=== PATIENT | male | born 1955 | race Hispanic/Latino ===

== ENCOUNTER 2024-09-28 19:47 | Inpatient (IN) | payer OTHER ==
[~2024-09-28] VITALS: Ht 167.6 cm; Wt 98.2 kg
--- NOTE | 2024-09-28 20:14 | EKG ---
[facility] Test Date: 2024-09-28 Test Time: 20:07:59 Pat Name: BAR STEVE Department: ED Room: 221 Gender: M Tooler: [id number] : 1955 Requested By: ALLEN FARAH Order Number: [id number] Reading MD: Ashley Alexis Measurements Intervals [place] Rate: 86 P: 51 MA: 174 QRS: 12 QRSD: 83 T: 24 QT: 350 QTc: 418 Interpretive Statements Sinus rhythm Inferior infarct, old Anterior infarct, acute (LAD) No previous ECG available for comparison Electronically Signed On 09-29-2024 11:12:15 CDT by Ashley Alexis Please click the below link to view image of tracing.
--- NOTE | 2024-09-28 20:26 | ERN ---
ED Note History of Present Illness Stated Complaint: POSSIBLE HEARTBURN Chief Complaint: Heartburn/GI Distress Time Seen by MD: 19:49 Dictation: PATIENT IS A 69-YEAR-OLD MALE COMING IN TODAY WITH EPIGASTRIC AND SUBSTERNAL CHEST PAIN BURNING ONSET HE HAS HAD FOR SEVERAL YEARS OFF AND ON. HE STATES THE DAY HOWEVER IT GOT WORSE AFTER HE ATE 3 HOURS PRIOR TO ARRIVAL AND HE DECIDED TO COME TO THE HOSPITAL. 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 STATES HE DID NOT TAKE ANYTHING PRIOR TO ARRIVAL FOR PAIN. Allergies: Coded Allergies: No Known Allergies (Unverified Allergy, Unknown, 09/28/24) Past Medical History Past Medical History: Diabetes-Type II, Hypertension, Other Additional Past Medical Hx: HX OF GASTRITIS Surgical History: None PSYCH History: no pertinent psych hx RN Note Reviewed/Agreed w/PFSH: Yes Review of System Dictation CONSTITUTIONAL: NEGATIVE EXCEPT FOR HPI HEAD/FACE: NEGATIVE EXCEPT FOR HPI EENT: NEGATIVE EXCEPT FOR HPI RESPIRATORY: NEGATIVE EXCEPT FOR HPI GASTROINTESTINAL/ABDOMINAL: NEGATIVE EXCEPT FOR HPI EPIGASTRIC/SUBSTERNAL CHEST PAIN GENITOURINARY: NEGATIVE EXCEPT FOR HPI MUSCULOSKELETAL: NEGATIVE EXCEPT FOR HPI INTEGUMENTARY: NEGATIVE EXCEPT FOR HPI NEUROLOGICAL/PSYCH: NEGATIVE EXCEPT FOR HPI HEMATOLOGIC/LYMPHATIC: NEGATIVE EXCEPT FOR HPI ALL SYSTEMS NEGATIVE, EXCEPT NOTED ABOVE. 13 POINT REVIEW OF SYSTEMS ASSESSED AND ALL NEGATIVE EXCEPT FOR ABOVE. Initial Vital Sign VS Vital Signs Date Time Temp Pulse Resp B/P (MAP) Pulse Ox O2 Delivery O2 Flow Rate FiO2 09/28/24 20:00 98.1 96 20 165/104 96 Room Air 09/28/24 21:09 0 21 Physical Exam Dictation VITAL SIGNS REVIEWED GENERAL APPEARANCE: ALERT, ORIENTED X 3, MILD ACUTE DISTRESS, WELL DEVELOPED, NOURISHED. HEAD AND FACE: NON-TRAUMATIC. EYES: PERRL, PINK CONJUNCTIVAS, EYELID NO TRAUMA, ANTERIOR CHAMBER WITH ARCUS SENILIS. EARS: PINNAS INTACT AND NO SIGNS OF TRAUMA OR ERYTHEMA EAR CANALS CLEAR AND NO DISCHARGE TM NO ERYTHEMA NOSE: NO DISCHARGE, NO BLEEDING. OROPHARYNX: MOUTH NORMAL, TONGUE PINK, PHARYNX CLEAR,NO ERYTHEMA, TONSILS NO EXUDATES, NO ABSCESSES NOTED, MUCOUS MEMBRANE MOIST NECK: SUPPLE, NON-TENDER, NO THYROMEGALY, NO MASSES, NO JVD, NO BRUITS BREAST:DEFERRED CHEST:NO TENDERNESS, NO CREPITUS, NO PARADOXICAL MOVEMENT, NO RETRACTIONS LUNGS:CLEAR, WELL-VENTILATED, SYMMETRIC, NO RALES, NO WHEEZING, NO RHONCHI, NO STRIDOR, GOOD BREATH SOUNDS BILATERALLY HEART: REGULAR RATE, REGULAR RHYTHM, NO MURMUR, NO GALLOPS VASCULAR: NO PERIPHERAL EDEMA, ABDOMEN: SOFT, POSITIVE BOWEL SOUNDS, NONDISTENDED, NO GUARDING, MILD EPIGASTRIC TENDERNESS WITH PALPATION NO REBOUND, NO MASSES NO HEPATOMEGALY, NO SPLENOMEGALY, NO BENSON'S SIGN, NO HERNIAS. RECTAL: DEFERRED GENITAL: DEFERRED NEUROLOGICAL: NORMAL SPEECH, MOTOR FUNCTION INTACT, SENSORY FUNCTION INTACT MUSCULOSKELETAL: NECK NONTENDER, FULL RANGE OF MOTION, BACK NONTENDER, FULL RANGE OF MOTION, EXTREMITIES: NONTENDER, FULL RANGE OF MOTION SKIN: COLOR PINK, DRY, NO TURGOR, NO RASH, NO LACERATIONS, NO ABRASIONS, NO CONTUSIONS. LYMPHATIC: DEFERRED Results (Laboratory/Radiology) Laboratory/Radiology Laboratory Tests Test 09/28/24 20:22 White Blood Count 14.0 K/uL (4.8-10.8) H Red Blood Count 5.16 MIL/uL (4.50-6.20) Hemoglobin 16.6 g/dL (14.0-18.0) Hematocrit 48.6 % (42-54) Mean Corpuscular Volume 94.2 fL (79-99) Mean Corpuscular Hemoglobin 32.2 pg (27.0-33.0) Mean Corpuscular Hemoglobin Concent 34.2 g/dL (32.0-36.0) Red Cell Distribution Width 11.8 % (11.0-15.5) Platelet Count 224 K/uL (130-400) Mean Platelet Volume 10.5 fL (7.5-10.5) Immature Granulocyte % (Auto) 0.6 % (0-1) Neutrophils (%) (Auto) 58.8 % (40.0-77.0) Lymphocytes (%) (Auto) 29.3 % (21.0-51.0) Monocytes (%) (Auto) 8.7 % (3.0-13.0) Eosinophils (%) (Auto) 1.8 % (0.0-8.0) Basophils (%) (Auto) 0.8 % (0.0-5.0) Neutrophils # (Auto) 8.3 K/uL (1.8-7.7) H Lymphocytes # (Auto) 4.1 K/uL (1.0-4.8) Monocytes # (Auto) 1.2 K/uL (0.1-1.0) H Eosinophils # (Auto) 0.25 K/uL (0.00-0.70) Basophils # (Auto) 0.11 K/uL (0.00-0.20) Absolute Immature Granulocyte (auto 0.08 K/uL (0-1) Nucleated Red Blood Cells 0.0 % (0.0-0.19) Sodium Level 132 mmol/L (136-145) L Potassium Level 3.9 mmol/L (3.5-5.1) Chloride Level 97 mmol/L (101-111) L Carbon Dioxide Level 27 mmol/L (21-32) Blood Urea Nitrogen 26 mg/dL (7-18) H Creatinine 1.4 mg/dL (0.5-1.3) H Glomerular Filtration Rate Calc 54 mL/min (>90) Random Glucose 177 mg/dL (70-105) H Total Calcium 9.6 mg/dL (8.5-10.1) Troponin I High Sensitivity 221 ng/L (4-75) *H Labs Reviewed?: Yes EKG Comment: [facility] Test Date: 2024-09-28 Test Time: 20:07:59 Pat Name: BAR STEVE Department: EDH Room: Gender: Male Felt Puller: [id number] : 1955 Requested By: ALLEN FARAH Order Number: [id number] Reading MD: Measurements Intervals [place] Rate: 86 P: 51 WV: 174 QRS: 12 QRSD: 83 T: 24 QT: 350 QTc: 418 Interpretive Statements Sinus rhythm Inferior infarct, old Anterior infarct, acute (LAD) Please click the below link to view image of tracing. ED Course ED Course Orders Procedure Category Date Status Time 12 Lead Ekg Tracing- EKG 09/28/24 Complete Technical 20:04 Cbc With Differential LAB 09/28/24 Complete 20:23 Troponin I High LAB 09/28/24 Complete Sensitivity 20:23 12 Lead Ekg Tracing- EKG 09/28/24 Logged Technical 20:23 Lidocaine Hcl 2% PHA 09/28/24 Complete Viscous (Lidocaine Hcl 20:30 Mag/Alum/Simeth 30ml PHA 09/28/24 Complete (Maalox Plus 30ml) 20:30 Dicyclomine Hcl PHA 09/28/24 Complete (Bentyl 10mg/5ml 20:30 Famotidine 20mg Vial PHA 09/28/24 Complete (Pepcid 20mg Vial) 20:30 Basic Metabolic Panel LAB 09/28/24 Complete 20:23 Aspirin 325mg Tab PHA 09/28/24 In Process (Aspirin 325mg Tab) 22:00 Heparin 25,000 PHA 09/28/24 In Process Units/250ml D5w 22:00 Heparin 5,000 Unit PHA 09/28/24 In Process Vial (Heparin 5,000 U 22:00 Pt And Ptt LAB 09/28/24 Transmitted 21:48 Current Medications Medications (Trade) Dose Ordered Sig/Mark Route PRN Reason Start Time Stop Time Status Last Admin Dose Admin Al Hydroxide/Mg Hydroxide (MAALox PLUS 30ML) 30 ml ONCE ONCE PO 09/28/24 20:30 09/28/24 20:31 DC 09/28/24 20:56 Aspirin (Aspirin 325mg Tab) 325 mg ONCE ONCE PO 09/28/24 22:00 09/28/24 22:01 Dicyclomine HCl (Bentyl 10mg/5ml Syrup) 10 mg ONCE ONCE PO 09/28/24 20:30 09/28/24 20:31 DC 09/28/24 20:56 Famotidine (Pepcid 20mg Vial) 20 mg ONCE ONCE IV 09/28/24 20:30 09/28/24 20:31 DC 09/28/24 20:56 Heparin Sodium (Porcine) (HEParin 5,000 UNIT VIAL) 7,000 unit ONCE ONCE IV 09/28/24 22:00 09/28/24 22:01 Heparin Sodium/ Dextrose 250 ml @ 0 mls/hr PROTOCOL IV 09/28/24 22:00 10/28/24 21:59 Lidocaine HCl (Lidocaine HCl 2% Viscous) 10 ml ONCE ONCE PO 09/28/24 20:30 09/28/24 20:31 DC 09/28/24 20:56 Vital Signs Date Time Temp Pulse Resp B/P (MAP) Pulse Ox O2 Delivery O2 Flow Rate FiO2 09/28/24 21:09 98.1 80 12 147/86 99 Room Air* 0 21 09/28/24 20:00 98.1 96 20 165/104 96 Room Air 2150, PATIENT HAS REPOLARIZATION CHANGES IN ANTERIOR LEADS V1 TWO AND THREE, TROPONIN 221. PATIENT WILL BE GIVEN ASPIRIN AND HEPARIN DRIP STARTED AND WE WILL TREAT NON STEMI RI. SPOKE WITH PATIENT IN HIS DAUGHTER AT LENGTH AT BEDSIDE AND THEY AGREED TO PROCEED PATIENT STATES HE USED TO SEE WHO GO [place], AND A SPINNING OPERATOR'S AT [facility] HOWEVER HAS NOT SEEN ANYBODY IN FOUR YEARS. [birth year]/21/2055 SPOKE WITH MIKO CORTES HOSPITALIST REVIEWED EKG LABS INTERVENTIONS FOR AN NSTEMI TO INCLUDE ASPIRIN/NITRO/HEPARIN DRIP SHE AGREED TO ACCEPT PATIENT. HEART Score Response (Comments) Value EKG: Repolarization changes 1 Age: > 65yrs (+2) 2 Risk Factors: 3+ risk factors (+2) 2 Initial Troponin: >3x Normal Limit (+2) 2 Total 7 Medical Decision Making MDM MDM: DIFFERENTIAL DIAGNOSIS: ACUTE GASTRITIS/ESOPHAGITIS/ACS/AMI/ELECTROLYTE IMBALANCE/DEHYDRATION RATIONALE: TESTS CONSIDERED AND ORDERED SECONDARY TO SHARED DECISION MAKING INCLUDE: LABS, ECG PREVIOUS OUTSIDE RECORDS REVIEWED: OLD ER VISITS. REVIEWED RISK OF COMPLICATION AND/OR MORBIDITY OR MORTALITY OF PATIENT MANAGEMENT: [id number] MEDICATIONS-PER MEDICATION RECONCILIATION NEED FOR HOSPITALIZATION: PATIENT DOES MEET CRITERIA FOR HOSPITALIZATION. PATIENT WILL NEED CARDIOLOGY CONSULTATION WITH SERIAL EKGS HEPARIN WAS INITIATED ALONG WITH ASPIRIN AND NITRO PASTE TO CHEST NEED FOR EMERGENCY MAJOR/MINOR SURGERY: NO THERE ARE NO SOCIAL CONCERNS WITH THIS PATIENT. PRESCRIPTION DRUG MANAGEMENT PRESCRIPTIONS WILL INCLUDE SYMPTOMATIC CARE PATIENT'S PRIOR EXTERNAL MEDICAL RECORDS FROM OTHER ER VISITS WERE REVIEWED BY ME INDICATED. PRIOR TESTING AND RESULTS FROM PREVIOUS VISITS WERE REVIEWED. PRIOR TESTS WERE TAKEN INTO ACCOUNT WITH MEDICAL DECISION MAKING AND RESOURCE UTILIZATION, INDEPENDENT HISTORIAN/HISTORIANS WERE USED TO OBTAIN COMPLETE MEDICAL HISTORY. I INDEPENDENTLY INTERPRETED THE TEST THAT WERE PERFORMED, RESULTS WERE REVIEWED BY ME AND CONSIDERED FINDINGS ON RADIOLOGY IF ORDERED. MEDICAL MANAGEMENT AND EXAMINATION INTERPRETATION DISCUSSIONS WERE HAD BY ME WITH OTHER QUALIFIED HEALTHCARE PROFESSIONALS INDICATED FOR THE PATIENT'S CARE. DX & DISP Disposition: Inpatient Decision to Admit Time: 21:51 Departure Impression: Primary Impression: Non-STEMI (non-ST elevated myocardial infarction) Additional Impressions: Uncontrolled diabetes mellitus, Stage III chronic kidney disease Condition: Stable Time of Disposition: 21:57 I have reviewed the case, and I agree with, Diagnosis and Plan MACK MITCHELL NP Sep 28, 2024 20:26
[2024-09-28 20:35] LABS: BASOPHILS # (AUTO) 0.11 K/uL (0.00-0.20); BASOPHILS % (AUTO) 0.8 % (0.0-5.0); EOSINOPHILS # (AUTO) 0.25 K/uL (0.00-0.70); EOSINOPHILS % (AUTO) 1.8 % (0.0-8.0); HEMATOCRIT 48.6 % (42-54); IMMATURE GRANULOCYTE ABSOLUTE 0.08 K/uL (0-1); LYMPHOCYTES # (AUTO) 4.1 K/uL (1.0-4.8); LYMPHOCYTES % (AUTO) 29.3 % (21.0-51.0); MEAN CORPUSCULAR HEMOGLOBIN 32.2 pg (27.0-33.0); MEAN CORPUSCULAR HGB CONC 34.2 g/dL (32.0-36.0); MEAN CORPUSCULAR VOLUME 94.2 fL (79-99); MONOCYTES # (AUTO) 1.2 K/uL (0.1-1.0); MONOCYTES % (AUTO) 8.7 % (3.0-13.0); NEUTROPHILS # (AUTO) 8.3 K/uL (1.8-7.7); NEUTROPHILS % (AUTO) 58.8 % (40.0-77.0); PLATELET COUNT (AUTO) 224 K/uL (130-400); RED BLOOD CELL COUNT(AUTO) 5.16 MIL/uL (4.50-6.20); RED CELL DISTRIBUTION WIDTH 11.8 % (11.0-15.5)
[2024-09-28 20:46] LABS: CREATININE 1.4 mg/dL (0.5-1.3); POTASSIUM 3.9 mmol/L (3.5-5.1)
[2024-09-28] MEDS: MAG/ALUM/SIMETH 30 ML UDCUP PO ONE (20:56)
[2024-09-28] MEDS: DICYCLOMINE HCL 10 MG/5 ML ML PO ONE (20:56)
[2024-09-28] MEDS: LIDOCAINE HCL 2% VISCOUS 15 ML UDCUP PO ONE (20:56)
[2024-09-28] MEDS: FAMOTIDINE 20MG VIAL IV ONE (20:56)
--- NOTE | 2024-09-28 22:00 | HP ---
[facility] HISTORY & PHYSICAL Date Patient Seen: Sep 28, 2024 Time of Visit: 21:59 Supervising Physician: Dr. Kit Bocanegra Primary Care Physician: Sheyla Cedeno @ [facility] Outpatient Specialists: Inpatient Consults: Cardiology PROBLEM LIST: NSTEMI-- troponin is 221 Pulmonary vascular congestion Epigastric pain Leukocytosis Acute renal failure secondary to ATN from dehydration Electrolyte derangement (hyponatremia, hypokalemia) Hyperglycemia in setting of type 2 diabetes mellitus Leukocytosis without left band shift Chronic problem list: diabetes mellitus, hypertension, gastritis, former light smoker HPI: Mr. Navarro is a 69 year old male with history of DM II< hypertension and gastritis who presented to ED for evaluation of epigastric and substernal chest pain. He reports the pain feels like burning onset several years on and off, but worsened after he ate 3 hours prior to arrival and which prompted him to come to the hospital. He reports being seen by Dr. Gotti cardiology for a cardiac clearance. Then he continued to see thecardiologist for his hypertension. Now he sees another senior engineering manager in [place]. He did not take anything prior to arrival to ED for the pain. Patient was seen/assessed in ED 17. Denied chest pain during my assessment. I answered his an family members multiple questions. Plan and assessment are listed below. PAST MEDICAL HX: see above PAST SURGICAL HX: noncontributory SOCIAL HISTORY: No tobacco, ETOH, or illicit drug use Coded Allergies: No Known Allergies (Unverified Allergy, Unknown, 09/28/24) REVIEW OF SYSTEMS: 12 point ROS reviewed with patient. Pertinent positives mentioned above. Otherwise negative. PHYSICAL EXAM: GENERAL: Alert, weak, awake oriented x 3 HEENT: EOMI, Sclera non icteric, moist mucosa NECK: Supple, no JVD, trachea midline LUNGS: Clear breath sounds bilaterally. No wheezes HEART: Regular rate and rhythm. Normal S1 and S2, without murmurs ABD: Abdomen soft, nontender. Bowel sounds present EXT: No clubbing cyanosis or edema NEURO: Alert and oriented X3, follows commands Vital Signs (last 8hr) Date Time Temp Pulse Resp B/P (MAP) Pulse Ox O2 Delivery O2 Flow Rate FiO2 09/28/24 21:09 98.1 80 12 147/86 99 Room Air* 0 21 09/28/24 20:00 98.1 96 20 165/104 96 Room Air LABS: Hematology Labs: Test 09/28/24 20:22 Range/Units White Blood Count 14.0 H 4.8-10.8 K/uL Red Blood Count 5.16 4.50-6.20 MIL/uL Hemoglobin 16.6 14.0-18.0 g/dL Hematocrit 48.6 42-54 % Mean Corpuscular Volume 94.2 79-99 fL Mean Corpuscular Hemoglobin 32.2 27.0-33.0 pg Mean Corpuscular Hemoglobin Concent 34.2 32.0-36.0 g/dL Red Cell Distribution Width 11.8 11.0-15.5 % Platelet Count 224 130-400 K/uL Mean Platelet Volume 10.5 7.5-10.5 fL Immature Granulocyte % (Auto) 0.6 0-1 % Neutrophils (%) (Auto) 58.8 40.0-77.0 % Lymphocytes (%) (Auto) 29.3 21.0-51.0 % Monocytes (%) (Auto) 8.7 3.0-13.0 % Eosinophils (%) (Auto) 1.8 0.0-8.0 % Basophils (%) (Auto) 0.8 0.0-5.0 % Neutrophils # (Auto) 8.3 H 1.8-7.7 K/uL Lymphocytes # (Auto) 4.1 1.0-4.8 K/uL Monocytes # (Auto) 1.2 H 0.1-1.0 K/uL Eosinophils # (Auto) 0.25 0.00-0.70 K/uL Basophils # (Auto) 0.11 0.00-0.20 K/uL Absolute Immature Granulocyte (auto 0.08 0-1 K/uL Nucleated Red Blood Cells 0.0 0.0-0.19 % Chemistry Labs: Test 09/28/24 20:22 Range/Units Sodium Level 132 L 136-145 mmol/L Potassium Level 3.9 3.5-5.1 mmol/L Chloride Level 97 L 101-111 mmol/L Carbon Dioxide Level 27 21-32 mmol/L Blood Urea Nitrogen 26 H 7-18 mg/dL Creatinine 1.4 H 0.5-1.3 mg/dL Glomerular Filtration Rate Calc 54 >90 mL/min Random Glucose 177 H 70-105 mg/dL Total Calcium 9.6 8.5-10.1 mg/dL Troponin I High Sensitivity 221 *H 4-75 ng/L DIAGNOSTICS / RADIOLOGY RESULTS: [ ] PLAN -Admit to medical floor with continuous telemetry monitoring. -Troponin levels and EKG series. -Cardiology consult in the am. -2D echo in a.m. with heart clinic to read. -PRN medications for pain management, N/V, constipation, hypertension. -Oxygen supplement as needed to maintain oxygen levels equal to or greater than 92% -Nitroglycerin sublingual as needed chest pain. -Continue Heparin drip. -Aspirin 81 mg p.o. daily. -Atorvastatin 40 mg PO daily. -Blood pressure checks every 4 hours and as needed. -Reconcile home medications once available. -Glucometer checks before meals and at bedtime with insulin regular sliding scale. -Monitor renal and liver function, monitor electrolytes and replace PRN. -AM labs: CBC, BMP, mag, phos, A1C, TSH. -DVT and GI prophylaxis: Lovenox and Protonix. NEURO: Minimize central acting medications as possible. Maintain fall precautions, adequate lighting during the day PULMONARY: Supplemental 02 as needed. Maintain aspiration precautions at all times CARDIOVASCULAR: Follow hemodynamics. Vital signs per facility protocol GI & NUTRITION: Continue with nutritional support. Continue stool softeners and laxatives as needed. KIDNEYS & ELECTROLYTES: Strict monitoring of intake, output and overall fluid balance. Avoid nephrotoxic medications to the extent possible. Medications to be dosed according to renal function. Monitor electrolytes and replace as needed ENDOCRINE: Maintain blood glucose between 100-180 at all times. Hypoglycemia protocol in place INFECTIOUS DISEASE: Trend temperature, WBC and procalcitonin level Follow cultures, deescalate antibiotics as soon as possible. Panculture if new onset fever ONCOLOGY/HEMATOLOGY/COAGULATION: Monitor for s/s of bleeding Monitor hemoglobin, coagulation studies as needed SKIN: Pressure ulcer prevention per facility protocol Specialty mattress ORTHO/REHAB: Continue PT/OT Prophylaxis: Continue GI and DVT prophylaxis Code Status: Full Resuscitation Disposition: JOJO THOMAS Sep 28, 2024 22:00
[2024-09-28 22:05] LABS: INR 0.97 (0.85-1.15); PROTHROMBIN TIME 10.5 SEC (9.6-11.6)
[2024-09-28 22:06] LABS: PARTIAL THROMBOPLASTIN TIME 32.7 SEC (26.3-35.5)
[2024-09-28] MEDS: HEParin 25,000 UNITS/250ML D5W 250 ML IV SCH (22:06)
[2024-09-28] MEDS: HEParin 5,000 UNIT VIAL IV ONE (22:06)
[2024-09-28] MEDS: ASPIRIN 325MG TAB PO ONE (22:06)
[2024-09-28] MEDS: NITROGLYCERIN 1GM OINT 1 INCH/1GM TD ONE (22:07)
[2024-09-28] MEDS ORDERED: hydrALAZine 20MG/ML VIAL IV PRN (22:30)
[2024-09-28] MEDS ORDERED: acetaMINOPHEN 325 MG TAB PO PRN (22:30)
[2024-09-28] MEDS ORDERED: ondanSETRON 4MG INJ IVP PRN (22:30)
[2024-09-28] MEDS ORDERED: TEMAZepam 15 MG CAPSULE PO PRN (22:30)
[2024-09-28] MEDS ORDERED: LACTULOSE 20 GM/30 ML UDCUP PO PRN (22:30)
[2024-09-28] MEDS ORDERED: doCUSate SODIUM 100 MG CAP PO PRN (22:30)
[2024-09-28] MEDS ORDERED: acetaMINOPHEN 650 MG SUPPOSITORY RC PRN (22:30)
[2024-09-28] MEDS: atorVAStatin 40 MG TABLET PO SCH (22:31)
[2024-09-28] MEDS ORDERED: METO50TA18 PO (22:43)
[2024-09-28] MEDS ORDERED: LISI10TA24 PO (22:43)
[2024-09-28] MEDS ORDERED: ATOR10TA69 PO (22:43)
[2024-09-28] MEDS ORDERED: METF-446 PO (22:43)
[2024-09-28] MEDS ORDERED: EMPA10TA PO (22:43)
[2024-09-28 23:15] VITALS: O2SAT 96
[2024-09-28 23:52] VITALS: BP 143/81; PULSE 78; RESP 18; TEMP 98.4
[2024-09-29] VITALS (14 sets, daily range): BP systolic 92–110; BP diastolic 53–71; PULSE 64–81; RESP 18; TEMP 97.8–98.8; O2SAT 96
[2024-09-29 01:49] LABS: AMPHET/METH SCREEN,URINE NEGATIVE (NEGATIVE); BARBITURATE SCREEN, URINE NEGATIVE (NEGATIVE); BENZODIAZEPINES SCREEN,URINE NEGATIVE (NEGATIVE); CANNABINOID SCREEN,URINE NEGATIVE (NEGATIVE); COCAINE SCREEN,URINE NEGATIVE (NEGATIVE); OPIATE SCREEN,URINE NEGATIVE (NEGATIVE); PHENCYCLIDINE SCREEN,URINE NEGATIVE (NEGATIVE)
[2024-09-29 01:51] LABS: ADD UA MICROSCOPIC YES; APPEARANCE,URINE CLEAR (CLEAR); BILIRUBIN,URINE NEGATIVE (NEGATIVE); COLOR,URINE LIGHT-YELLOW (YELLOW); GLUCOSE, URINE (UA) >=1000 mg/dL (NEGATIVE); KETONES,URINE NEGATIVE (NEGATIVE); LEUKOCYTE ESTERASE ,URINE NEGATIVE Leu/uL (NEGATIVE); NITRATE,URINE NEGATIVE (NEGATIVE); OCCULT BLOOD,URINE NEGATIVE (NEGATIVE); PROTEIN,URINE 10 mg/dL (NEGATIVE); UROBILINOGEN,URINE 0.2 mg/dL (0.2-1.0)
[2024-09-29 01:54] LABS: RBC,URINE 0-1 /HPF (0-1); WBC,URINE 0-1 /HPF (0-1)
[2024-09-29 02:25] LABS: HEMATOCRIT 43.6 % (42-54); MEAN CORPUSCULAR HGB CONC 34.4 g/dL (32.0-36.0); RED BLOOD CELL COUNT(AUTO) 4.69 MIL/uL (4.50-6.20); RED CELL DISTRIBUTION WIDTH 11.9 % (11.0-15.5); WHITE BLOOD COUNT (AUTO) 13.2 K/uL (4.8-10.8)
[2024-09-29 02:50] LABS: INR 1.06 (0.85-1.15); PROTHROMBIN TIME 11.4 SEC (9.6-11.6)
[2024-09-29 02:51] LABS: CREATININE 1.2 mg/dL (0.5-1.3); MAGNESIUM 2.1 mg/dL (1.80-2.40); PHOSPHORUS 4.3 mg/dL (2.5-4.9); POTASSIUM 4.2 mmol/L (3.5-5.1); THYROID STIMULATING HORMONE 3.13 uIU/mL (0.36-3.74)
[2024-09-29] MEDS: INSULIN humuLIN R 100 UNIT/ML 3ML SQ SCH (06:13)
--- NOTE | 2024-09-29 08:23 | HMCIMG ---
CHEST 1VW REASON: elevated trop COMPARISON: None. FINDINGS: There is mild cardiomegaly. There is mild pulmonary vascular congestion. There are no pleural effusions. Peripheral portions of the lungs are clear. Mediastinum and bony thorax appear unremarkable. IMPRESSION: 1. Mild cardiomegaly with mild central vascular congestion.
[2024-09-29] MEDS: PANTOPrazole 40 MG/VIAL IVP SCH (08:47)
[2024-09-29] MEDS: ASPIRIN 81 MG EC TAB PO SCH (08:47)
[2024-09-29] MEDS: SUCRALFATE 1 GM TABLET PO SCH (12:00)
--- NOTE | 2024-09-29 12:17 | PN ---
[facility] PROGRESS NOTE Date Patient Seen: Sep 29, 2024 Time of Visit: 12:15 Supervising Physician: Dr. Raygoza Primary Care Physician: Mala Outpatient Specialists: Inpatient Consults: Cardiology PROBLEM LIST: Epigastric pain likely gastritis versus duodenal ulcer flare from spicy food ( patient likes to eat habanero daily) Non STEMI-- troponin is 221, EKG pending- HEART SCORE FOR MACE 5 pts- moderate- risk of MACE 12-16%. Acute renal failure secondary to ATN from dehydration Hyponatremia Hyperglycemia in setting of type 2 diabetes mellitus Pulmonary vascular congestion- likely from acute CHF preserved EF Leukocytosis without left band shift History of diabetes mellitus, hypertension, gastritis, former light smoker INTERVAL HISTORY: Patient came to the hospital yesterday with substernal chest pain. Patient feels burning sensation in the chest 3 hours after he ate habanero. He admits eating spicy food on a daily basis. Patient has history of gastritis not on any PPI. Patient denies any history of cardiac problem other than hypertension. He has seen Dr. Gotti as outpatient for cardiac clearance. His troponin was 220 when he came in and we are trending this. We will obtain EKG. At this time patient is on heparin drip per ACS protocol. Aspirin and statin has been started. Obtain Cardiology clearance. Check BNP. Echocardiogram is pending. In the meantime, likely this gastric burning was from gastritis versus duodenal ulcer. We will start patient with GI cocktail. We will start him also on Carafate. REVIEW OF SYSTEMS: 12 point ROS reviewed with patient. Pertinent positives mentioned above. Otherwise negative. PHYSICAL EXAM: GENERAL: alert, weak, awake oriented x 3 HEENT: EOMI, Sclera non icteric, moist mucosa NECK: Supple, no JVD, trachea midline LUNGS: Clear breath sounds bilaterally. No wheezes HEART: Regular rate and rhythm. Normal S1 and S2, without murmurs ABD: Abdomen soft, nontender. Bowel sounds present EXT: No clubbing cyanosis or edema NEURO: Alert and oriented to person, follows commands Vital Signs (last 8hr) Date Time Temp Pulse Resp B/P (MAP) Pulse Ox O2 Delivery O2 Flow Rate FiO2 09/29/24 08:47 98.8 69 18 98/71 98 Room Air 09/29/24 07:25 96 Room Air* 0 21 LABS: Hematology Labs: Test 09/29/24 02:09 09/28/24 20:22 Range/Units White Blood Count 13.2 H 4.8-10.8 K/uL Red Blood Count 4.69 4.50-6.20 MIL/uL Hemoglobin 15.0 14.0-18.0 g/dL Hematocrit 43.6 42-54 % Mean Corpuscular Volume 93.0 79-99 fL Mean Corpuscular Hemoglobin 32.0 27.0-33.0 pg Mean Corpuscular Hemoglobin Concent 34.4 32.0-36.0 g/dL Red Cell Distribution Width 11.9 11.0-15.5 % Platelet Count 220 130-400 K/uL Mean Platelet Volume 10.5 7.5-10.5 fL Nucleated Red Blood Cells 0.0 0.0-0.19 % Immature Granulocyte % (Auto) 0.6 0-1 % Neutrophils (%) (Auto) 58.8 40.0-77.0 % Lymphocytes (%) (Auto) 29.3 21.0-51.0 % Monocytes (%) (Auto) 8.7 3.0-13.0 % Eosinophils (%) (Auto) 1.8 0.0-8.0 % Basophils (%) (Auto) 0.8 0.0-5.0 % Neutrophils # (Auto) 8.3 H 1.8-7.7 K/uL Lymphocytes # (Auto) 4.1 1.0-4.8 K/uL Monocytes # (Auto) 1.2 H 0.1-1.0 K/uL Eosinophils # (Auto) 0.25 0.00-0.70 K/uL Basophils # (Auto) 0.11 0.00-0.20 K/uL Absolute Immature Granulocyte (auto 0.08 0-1 K/uL Chemistry Labs: Test 09/29/24 05:40 09/29/24 02:09 09/28/24 20:22 Range/Units Whole Blood Glucose 136 H 70-110 MG/DL Sodium Level 134 L 136-145 mmol/L Potassium Level 4.2 3.5-5.1 mmol/L Chloride Level 99 L 101-111 mmol/L Carbon Dioxide Level 29 21-32 mmol/L Blood Urea Nitrogen 23 H 7-18 mg/dL Creatinine 1.2 0.5-1.3 mg/dL Glomerular Filtration Rate Calc 65 >90 mL/min Random Glucose 139 H 70-105 mg/dL Total Calcium 9.5 8.5-10.1 mg/dL Phosphorus Level 4.3 2.5-4.9 mg/dL Magnesium Level 2.10 1.80-2.40 mg/dL Thyroid Stimulating Hormone (TSH) 3.13 0.36-3.74 uIU/mL Troponin I High Sensitivity 221 *H 4-75 ng/L Coagulation Labs: Test 09/29/24 10:01 09/29/24 02:09 Range/Units Activated Partial Thromboplast Time 117.1 *H 26.3-35.5 SEC Prothrombin Time 11.4 9.6-11.6 SEC Prothromb Time International Ratio 1.06 0.85-1.15 DIAGNOSTICS / RADIOLOGY RESULTS: [ ] PLAN -Admit to medical floor with continuous telemetry monitoring. -Troponin levels and EKG series. -Cardiology consult in the am. -2D echo in a.m. with heart clinic to read. -PRN medications for pain management, N/V, constipation, hypertension. -Oxygen supplement as needed to maintain oxygen levels equal to or greater than 92% -Nitroglycerin sublingual as needed chest pain. -Continue Heparin drip. -Aspirin 81 mg p.o. daily. -Atorvastatin 40 mg PO daily. -Blood pressure checks every 4 hours and as needed. -Reconcile home medications once available. -Glucometer checks before meals and at bedtime with insulin regular sliding scale. -Monitor renal and liver function, monitor electrolytes and replace PRN. -AM labs: CBC, BMP, mag, phos, A1C, TSH. -DVT and GI prophylaxis: Lovenox and Protonix. NEURO: Minimize central acting medications as possible. Maintain fall precautions, adequate lighting during the day PULMONARY: Supplemental 02 as needed. Maintain aspiration precautions at all times CARDIOVASCULAR: Follow hemodynamics. Vital signs per facility protocol Trend troponin Cardiology consultation GI & NUTRITION: Continue with nutritional support. Continue stool softeners and laxatives as needed. Carafate GI cocktail KIDNEYS & ELECTROLYTES: Strict monitoring of intake, output and overall fluid balance. Avoid nephrotoxic medications to the extent possible. Medications to be dosed according to renal function. Monitor electrolytes and replace as needed ENDOCRINE: Maintain blood glucose between 100-180 at all times. Hypoglycemia protocol in place INFECTIOUS DISEASE: Trend temperature, WBC and procalcitonin level Follow cultures, deescalate antibiotics as soon as possible. Panculture if new onset fever ONCOLOGY/HEMATOLOGY/COAGULATION: Monitor for s/s of bleeding Monitor hemoglobin, coagulation studies as needed SKIN: Pressure ulcer prevention per facility protocol Specialty mattress ORTHO/REHAB: Continue PT/OT Prophylaxis: Continue GI and DVT prophylaxis Code Status: Full Resuscitation Disposition: TBD Time spent: > 35 minutes ORION ARNOLD MACHINE STRIPER Sep 29, 2024 12:17
--- NOTE | 2024-09-29 12:50 | EKG ---
[facility] Test Date: 2024-09-29 Test Time: 12:50:36 Pat Name: BAR STEVE Department: [facility] Room: 219 Gender: M Stabber: KIM : 1955 Requested By: ORION ARNOLD Order Number: [id number] Reading MD: Hipolito Bradford Measurements Intervals [place] Rate: 74 P: 41 CA: 170 QRS: -2 QRSD: 78 T: 102 QT: 410 QTc: 455 Interpretive Statements Normal sinus rhythm Inferior infarct , age undetermined T wave abnormality, consider anterolateral ischemia Compared to ECG 09/28/2024 20:07:59 T-wave abnormality now present Possible ischemia now present Myocardial infarct finding still present Electronically Signed On 09-30-2024 12:10:00 CDT by Hipolito Bradford Please click the below link to view image of tracing.
[2024-09-29] MEDS ORDERED: COMPOUND PO MISCELLANEOUS 1 EACH MISC MISC PRN (13:30)
[2024-09-29] MEDS: LIDOCAINE HCL 2% VISCOUS 30 ML, MAG/ALUM/SIMETH 30ML 30 ML, DICYCLOMINE HCL 20 MG PO SCH (15:26)
[2024-09-29] MEDS ORDERED: cloPIDOgrel 300MG TAB PO ONE (16:00)
--- NOTE | 2024-09-29 16:00 | EKG ---
[facility] Test Date: 2024-09-29 Test Time: 16:00:53 Pat Name: BAR STEVE Department: [facility] Room: 219 Gender: M Cvt Tech: KIM : 1955 Requested By: KATRINA HUANG Order Number: [id number] Reading MD: Hipolito Bradford Measurements Intervals [place] Rate: 74 P: 0 SC: 160 QRS: 190 QRSD: 74 T: 63 QT: 398 QTc: 441 Interpretive Statements Suspect arm lead reversal, interpretation assumes no reversal Sinus rhythm with premature atrial complexes with aberrant conduction Inferior infarct , age undetermined Anterolateral infarct , age undetermined Compared to ECG 09/29/2024 12:50:36 Atrial premature complex(es) now present Aberrant conduction of supraventricular beat(s) now present T-wave abnormality no longer present Possible ischemia no longer present Myocardial infarct finding still present Electronically Signed On 09-30-2024 12:08:08 CDT by Hipolito Bradford Please click the below link to view image of tracing.
[2024-09-29] MEDS: cloPIDOgrel 300MG TAB PO ONE (17:11)
--- NOTE | 2024-09-29 17:11 | HMCSR ---
APPROVED REPORT EXAM: Two-dimensional and M-mode echocardiogram with Doppler and color Doppler. INDICATION ICD: Non ST-elevation [place] I21.4 ELEVATED TROPONIN 2D Dimensions IVSd1.1 (0.7-1.1cm)LVEF(%)62.3 (>50%)LVED Vol(simp.)146.0 mL LVDd5.3 (3.8-5.6cm)FS(%)34 %LVES Vol(simp.)78.0 mL PWd1.1 (0.7-1.1cm)LA (2D)3.2 (1.6-4.0cm)LVEF(%, simp.)53 % IVSs1.5 cmAo Root(2D)3.0 (2.0-3.7cm)LA ESV INDEX (4CH)25.50 mL/m2 LVDs3.5 (2.5-4.0cm)LVOT diam1.9 (1.8-2.4cm) PWs1.5 cmIVC diam1.3 cm Deformation Strain Apical 4-9.0 % Apical 2-5.0 % Apical 3-11.0 % Global Strain-8.0 % M-Mode Dimensions EPSS1.0 cm LA (MM)4.0 (1.6-4.0cm) Ao Root(MM)3.7 (2.0-3.7cm) Aortic Valve AoV VTI0.2 mAo Mean GR4.0 mmHgLVOT VTI0.14 m SHAGGY (VMAX)1.6 cm2AVA (VTI) 1.6 cm2 Mitral Valve MV E Vmax59.2 cm/sDECEL Vzwl025 ms MV A Vmax88.4 cm/sP 1/2 T62 ms E/A ratio0.7MVA (PHT)3.6 cm2 TDI E/E' Ltxmmo61.9E/E' Bmdexoj12.0 Medial E' Peak V3.50 cm/sLateral E' Peak V3.70 cm/s Left Ventricle Left ventricular cavity size is normal. GLS -8% There is normal left ventricular wall thickness. LVEF is 50-55%. Stage I diastolic dysfunction. Right Ventricle The right ventricle is normal size. The right ventricular systolic function is normal. Atria The left atrium size is normal. The interatrial septum is intact with no evidence for an atrial septa l defect. The right atrium size is normal. Aortic Valve The aortic valve is normal in structure. No aortic regurgitation is present. There is no aortic valvu lar stenosis. Mitral Valve The mitral valve is normal in structure. There is no evidence of significant mitral regurgitation. Tricuspid Valve The tricuspid valve is normal in structure. There is no tricuspid valve regurgitation noted. Pulmonic Valve The pulmonary valve is normal in structure. There is no pulmonic valvular regurgitation. Great Vessels The aortic root is normal in size. The IVC is normal in size and collapses >50% with inspiration. Pericardium There is no pericardial effusion. Conclusion Left ventricular cavity size is normal. LVEF is 50-55%. Stage I diastolic dysfunction. The right ventricle is normal size. The right ventricular systolic function is normal. The left atrium size is normal. The right atrium size is normal. No valvular pathology. There is no pericardial effusion.
[2024-09-29] MEDS ORDERED: LIDOCAINE HCL 400MG/20ML VIAL ONE (17:21)
[2024-09-29] MEDS ORDERED: IOHEXOL 350 MG/ML 100ML INFUS..BTL IV ONE (17:22)
[2024-09-29] MEDS ORDERED: BIVALIRUDIN 250 MG/VIAL IV ONE (17:22)
[2024-09-29] MEDS ORDERED: IOHEXOL-350 50ML VIAL IV ONE (17:22)
[2024-09-29] MEDS ORDERED: NITROGLYCERIN 50MG VIAL ONE (17:22)
[2024-09-29] MEDS ORDERED: HEParin-NS 1,000 UNIT/500 ML 1,000 ML IV ONE (17:22)
--- NOTE | 2024-09-29 17:35 | CONS ---
[facility] CARDIOLOGY CONSULTATION NOTE Date Patient Seen: Sep 29, 2024 Time of Visit: 17:28 Reason for Consultation: [NSTEMI ] History of Present Illness: [ Mr. Navarro is a 69 year old male with history of DM II, hypertension and gastritis who presented to ED for evaluation of epigastric and substernal chest pain. He reports the pain feels like burning onset several years on and off, but worsened after he ate 3 hours prior to arrival and which prompted him to come to the hospital. Currently, he does not report chest pain or tightness. 2D echo is normal LVEF and no valvular pathology. ECG with biphasic T wave v2- v3, TWI v4-v6 and poor r wave progression. Trop 223-->96328. Cardiology consulted for NSTEMI. ] Past Medical History: [ ] Past Surgical History: [ ] Family History: [ ] Social History: [ ] Habits: [Never] smoker. [Denies] alcohol consumption. [Denies] illicit drug use Home Meds: [ ] Current Meds: [ ] Review of Systems: CONST: [No fever, fatigue, or weight changes.] EYES: [No recent vision problems.] ENT: [No congestion, ear pain, or sore throat.] C/V: [No chest pain, palpitations, or edema.] RESP: [No cough, congestion, wheezing or shortness of breath.] GI: [No abdominal pain, nausea, vomiting, constipation, or diarrhea.] : [No incontinence or dysuria.] SKIN: [No rash.] NEURO: [No headache, focal numbness or weakness, dizziness, or seizures.] PSYCH: [No depression or anxiety.] HEME: [No abnormal bruising or bleeding.] LYMPH: [No swollen glands.] Physical Examination: GENERAL: [No acute distress.] HEAD: [Normal with no signs of head trauma.] EYES: [PERRLA, EOMI, conjunctiva and sclera normal.] ENT: [Hearing grossly intact, normal oropharynx.] NECK: [Supple without JVD. There is no tenderness, lymphadenopathy, or masses. No thyromegaly. Normal carotid upstrokes without bruits.] LUNGS: [Clear breath sounds bilaterally. There are right basilar rales one third of the way up the chest. No wheezes, or rhonchi.] HEART: [Normal rate and rhythm. Normal S1 and S2 without mumurs, gallop or rub.] VASC: [Peripheral pulses +2 bilaterally.] ABD: [Bowel sounds normal, soft, nontender, no masses, no organomegaly. No audible bruits.] : [Not examined] LYMPH: [No lymphadenopathy noted.] EXT: [No clubbing, cyanosis or edema.] SKIN: [No rashes or lesions noted.] NEURO: [Awake, alert, and oriented x3. No focal sensory or strength deficits noted.] Vital Signs (last 8hr) Date Time Temp Pulse Resp B/P (MAP) Pulse Ox O2 Delivery O2 Flow Rate FiO2 09/29/24 12:30 98.4 71 18 100/65 97 Room Air Laboratory: [ ] Hematology Labs: Test 09/29/24 02:09 09/28/24 20:22 Range/Units White Blood Count 13.2 H 4.8-10.8 K/uL Red Blood Count 4.69 4.50-6.20 MIL/uL Hemoglobin 15.0 14.0-18.0 g/dL Hematocrit 43.6 42-54 % Mean Corpuscular Volume 93.0 79-99 fL Mean Corpuscular Hemoglobin 32.0 27.0-33.0 pg Mean Corpuscular Hemoglobin Concent 34.4 32.0-36.0 g/dL Red Cell Distribution Width 11.9 11.0-15.5 % Platelet Count 220 130-400 K/uL Mean Platelet Volume 10.5 7.5-10.5 fL Nucleated Red Blood Cells 0.0 0.0-0.19 % Immature Granulocyte % (Auto) 0.6 0-1 % Neutrophils (%) (Auto) 58.8 40.0-77.0 % Lymphocytes (%) (Auto) 29.3 21.0-51.0 % Monocytes (%) (Auto) 8.7 3.0-13.0 % Eosinophils (%) (Auto) 1.8 0.0-8.0 % Basophils (%) (Auto) 0.8 0.0-5.0 % Neutrophils # (Auto) 8.3 H 1.8-7.7 K/uL Lymphocytes # (Auto) 4.1 1.0-4.8 K/uL Monocytes # (Auto) 1.2 H 0.1-1.0 K/uL Eosinophils # (Auto) 0.25 0.00-0.70 K/uL Basophils # (Auto) 0.11 0.00-0.20 K/uL Absolute Immature Granulocyte (auto 0.08 0-1 K/uL Chemistry Labs: Test 09/29/24 15:28 09/29/24 10:01 09/29/24 03:09 09/29/24 02:09 Range/Units Whole Blood Glucose 138 H 70-110 MG/DL Troponin I High Sensitivity 56659 *H 4-75 ng/L B-Type Natriuretic Peptide 84 0-100 pg/mL Sodium Level 134 L 136-145 mmol/L Potassium Level 4.2 3.5-5.1 mmol/L Chloride Level 99 L 101-111 mmol/L Carbon Dioxide Level 29 21-32 mmol/L Blood Urea Nitrogen 23 H 7-18 mg/dL Creatinine 1.2 0.5-1.3 mg/dL Glomerular Filtration Rate Calc 65 >90 mL/min Random Glucose 139 H 70-105 mg/dL Total Calcium 9.5 8.5-10.1 mg/dL Phosphorus Level 4.3 2.5-4.9 mg/dL Magnesium Level 2.10 1.80-2.40 mg/dL Thyroid Stimulating Hormone (TSH) 3.13 0.36-3.74 uIU/mL Coagulation Labs: Test 09/29/24 16:09 09/29/24 02:09 Range/Units Activated Partial Thromboplast Time 81.2 #H 26.3-35.5 SEC Prothrombin Time 11.4 9.6-11.6 SEC Prothromb Time International Ratio 1.06 0.85-1.15 Diagnostics / Radiology: [Copy/Paste Echos/Imaging Report here] Assessment: [ NSTEMI Pulmonary vascular congestion Epigastric pain Leukocytosis Acute renal failure secondary to ATN from dehydration Electrolyte derangement (hyponatremia, hypokalemia) Hyperglycemia in setting of type 2 diabetes mellitus Leukocytosis without left band shift Chronic problem list: diabetes mellitus, hypertension, gastritis, former light smoker] Plan: [#NSTEMI -Trop 223--61575 -ECG with biphasic T wave v2 and v3, TWI v4-v-6 -2d echo normal LVEF and no valvular pathology -repeat ECG unchanged -heparin gtt, plavix 600 mg x1, asa 325 mg x1 -c/w aspirin 81 mg qd -Dr Lamb to 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
[2024-09-29] MEDS ORDERED: FENTanyl CITRate PF 50 MCG/1 ML 2ML VIAL ONE (18:12)
[2024-09-29] MEDS ORDERED: MIDAZOLAM HCL 1 MG/ML 2ML VIAL ONE (18:12)
--- NOTE | 2024-09-29 19:43 | PRN ---
DATE OF PROCEDURE: 09/29/2024 PROCEDURE PERFORMED: LEFT HEART CATHETERIZATION, LEFT VENTRICULOGRAM, LEFT AND RIGHT SELECTIVE CORONARY ANGIOGRAM, LEFT INTERNAL MAMMARY ARTERY SELECTIVE INJECTION TO ASSESS SUITABILITY FOR USE A BYPASS CONDUIT, RIGHT COMMON FEMORAL ANGIOGRAM, PERCLOSE SUTURE CLOSURE OF THE RIGHT COMMON FEMORAL ARTERY, AND CONSCIOUS SEDATION TUBE LANCER: BAKARI GALLEGOS MD, [facility] INDICATION: NON STEMI WITH EVIDENCE OF OLD INFERIOR WALL DE ON EKG AND NEW ANTERIOR ST CHANGES CONSISTENT WITH ACUTE CORONARY SYNDROME/NON STEMI. INITIAL TROPONIN WAS 221 [place] [address] SUGGESTING REPERFUSION AND EARLY WASHOUT. PROCEDURE NOTE: After informed consent was obtained the patient was prepped and draped in the usual sterile fashion. A 6 [place] arterial sheath was inserted in the right femoral artery using a modified Seldinger technique with a front wall, first pass puncture. The arterial sheath was aspirated and flushed. A 6 [place]yan pigtail catheter was then advanced over a J-tipped guidewire to the ascending aorta and was prolapsed into the left ventricle. The catheter was aspirated and flushed and pressure measurements were obtained. A left ventriculogram was then performed in a 30 CACERES projection. A pullback procedure was then performed, and this catheter was removed over a J-tipped guidewire. A 6F JL-4 was then advanced to the ascending aorta over a J-tipped guidewire, was aspirated and flushed, and was used for selective left coronary angiograms in multiple obliquities. A 6 F JR-4 was advanced in a similar fashion to the ascending aorta over a J-tipped guidewire and was used for selective right coronary angiograms in multiple obliquities with findings as outlined below. A right common femoral angiogram was performed to assess suitability for Perclose suture closure and the Perclose device was deployed in standard fashion. Perclose suture closure was successful without bleeding or hematoma. The patient tolerated the procedure well and was returned to the holding area in stable condition. FINDINGS: LEFT HEART HEMODYNAMICS: LVEDP prior to LV-gram was 11 mm of mercury and after LV-gram was 13 mm of mercury. There was no aortic valve gradient on pullback procedure. LEFT VENTRICULOGRAM: A left ventriculogram in a 30 degree CACERES projection demonstrated anteroapical akinesis, limited apical dyskinesis, and inferoapical akinesis with an estimated LVEF of 35-40%. There was no angiographic MR. CORONARY ANGIOGRAM: LEFT MAIN: The left main coronary had a 20% mid tubular stenosis. There was no dampening or ventricularization of the pressure waveform. LEFT ANTERIOR DESCENDING: The LAD was calcified throughout proximal and mid 3rd and there was an 80% long mid LAD stenosis. The distal LAD was free of calcium and was relatively small in size estimated at 1.75 mm. The 1st diagonal branch had an 80% proximal stenosis and appeared to measure 1.5-1.75 mm. There was no sizable 2nd diagonal branch. LEFT CIRCUMFLEX: The left circumflex terminated after the obtuse marginal branch and was nondominant. There was a 75% proximal mid left circumflex stenosis and a 90% OM1 stenosis. RAMUS INTERMEDIATE BRANCH: There was no ramus intermediate branch. RIGHT CORONARY ARTERY: The right coronary artery was dominant and had a 60% mid stenosis and was occluded chronically after the acute marginal branch with trickle flow through tiny channels. The PDA and posterolateral ventricular branches filled by [id number] collaterals. IMPRESSION: Non ST segment elevation DE anteriorly involving a diffusely calcific long 80% stenosis in the mid LAD, spontaneously reperfused prior to angiography with probable early washout with very high 2nd troponin of 47,283. Severe three-vessel coronary artery disease with 80% diagonal one stenosis, 70% proximal circumflex stenosis, 90% OM1 stenosis and chronically occluded mid RCA with PDA and PLV branches filling by [id number] collaterals. Evidence of old inferior wall DE by EKG with associated occluded RCA consistent with silent old inferior wall DE. Moderate ischemic cardiomyopathy with anteroapical and inferoapical akinesis and limited apical dyskinesis with estimated LVEF of 35-40%. No mitral regurgitation. No aortic stenosis. RECOMMENDATION: Given chronic occlusion of the mid right coronary artery and multivessel coronary disease, as well as suboptimal mid LAD for coronary intervention (diffuse calcification) and moderate ischemic cardiomyopathy the patient would benefit best from coronary artery bypass grafting. Patient was loaded with 600 mg of clopidogrel, consider deferring bypass for a few days. COMPLICATIONS OF PROCEDURE: None, the patient tolerated the procedure well and was returned to his room in stable condition. HEMOSTASIS: Perclose suture closure was successful without bleeding or hematoma. ESTIMATED BLOOD LOSS: Less than 10 mL. CONTRAST TOTAL: 135 mL. BAKARI GALLEGOS MD Sep 29, 2024 19:43
[2024-09-30] VITALS (68 sets, daily range): BP systolic 102–145; BP diastolic 62–87; PULSE 69–119; RESP 6–58; TEMP 98–98.6; O2SAT 98–100
[2024-09-30 03:41] LABS: HEMATOCRIT 45.1 % (42-54); MEAN CORPUSCULAR HEMOGLOBIN 32.3 pg (27.0-33.0); MEAN CORPUSCULAR VOLUME 97.6 fL (79-99); RED BLOOD CELL COUNT(AUTO) 4.62 MIL/uL (4.50-6.20); WHITE BLOOD COUNT (AUTO) 11.3 K/uL (4.8-10.8)
[2024-09-30 03:59] LABS: CREATININE 1.1 mg/dL (0.5-1.3); POTASSIUM 3.9 mmol/L (3.5-5.1)
--- NOTE | 2024-09-30 06:43 | EKG ---
[facility] Test Date: 2024-09-29 Test Time: 16:01:53 Pat Name: BAR STEVE [facility] Room: 219 Gender: M Planer Hand: KIM : 1955 Requested By: JINNY SHUKLA Order Number: [id number] Reading MD: Hipolito Bradford Measurements Intervals [place] Rate: 79 P: 0 FL: 162 QRS: 189 QRSD: 78 T: 59 QT: 400 QTc: 458 Interpretive Statements Suspect arm lead reversal, interpretation assumes no reversal Normal sinus rhythm Inferior infarct , age undetermined Anterolateral infarct , age undetermined Compared to ECG 09/29/2024 16:00:53 Atrial premature complex(es) no longer present Aberrant conduction of supraventricular beat(s) no longer present Myocardial infarct finding still present Electronically Signed On 09-30-2024 12:07:45 CDT by Hipolito Bradford Please click the below link to view image of tracing.
[2024-09-30] MEDS: morPHINE 2 MG SYG IVP ONE (08:34)
[2024-09-30] MEDS ORDERED: cloPIDOgrel 75MG TAB PO SCH (09:00)
[2024-09-30] MEDS: NITROGLYCERIN 50MG/D5W 250ML 250 BOT IV SCH (09:09)
[2024-09-30] MEDS: HEParin 25,000 UNITS/250ML D5W 250 ML IV SCH (10:07)
[2024-09-30 10:37] LABS: ABG BASE EXCESS -0.1 mmol/L (-2.0-3.0); ABG HCO3 24.2 mmol/L (21.0-28.0); ABG PCO2 38 mmHg (35-48); ABG PH 7.417 (7.350-7.450); DEVICE COMMENT LR ISAAC; PO2, ARTERIAL BG 64.5 mmHg (83.0-108.0); VENT MODE, BG RA (ROOM AIR)
--- NOTE | 2024-09-30 11:45 | PN ---
[facility] CARDIOLOGY PROGRESS NOTE Date Patient Seen: Sep 30, 2024 Time of Visit: 11:43 Interval History: [ S/p LHC and pending CABG. Had chest pain this AM, started on nitro gtt.] Physical Examination: GENERAL: [No acute distress.] HEAD: [Normal with no signs of head trauma.] EYES: [PERRLA, EOMI, conjunctiva and sclera normal.] ENT: [Hearing grossly intact, normal oropharynx.] NECK: [Supple without JVD. There is no tenderness, lymphadenopathy, or masses. No thyromegaly. Normal carotid upstrokes without bruits.] LUNGS: [Clear breath sounds bilaterally. There are right basilar rales one third of the way up the chest. No wheezes, or rhonchi.] HEART: [Normal rate and rhythm. Normal S1 and S2 without mumurs, gallop or rub.] VASC: [Peripheral pulses +2 bilaterally.] ABD: [Bowel sounds normal, soft, nontender, no masses, no organomegaly. No audible bruits.] : [Not examined] LYMPH: [No lymphadenopathy noted.] EXT: [No clubbing, cyanosis or edema.] SKIN: [No rashes or lesions noted.] NEURO: [Awake, alert, and oriented x3. No focal sensory or strength deficits noted.] Laboratory: [ ] Hematology Labs: Test 09/30/24 03:18 09/28/24 20:22 Range/Units White Blood Count 11.3 H 4.8-10.8 K/uL Red Blood Count 4.62 4.50-6.20 MIL/uL Hemoglobin 14.9 14.0-18.0 g/dL Hematocrit 45.1 42-54 % Mean Corpuscular Volume 97.6 79-99 fL Mean Corpuscular Hemoglobin 32.3 27.0-33.0 pg Mean Corpuscular Hemoglobin Concent 33.0 32.0-36.0 g/dL Red Cell Distribution Width 12.0 11.0-15.5 % Platelet Count 184 130-400 K/uL Mean Platelet Volume 10.4 7.5-10.5 fL Nucleated Red Blood Cells 0.0 0.0-0.19 % Immature Granulocyte % (Auto) 0.6 0-1 % Neutrophils (%) (Auto) 58.8 40.0-77.0 % Lymphocytes (%) (Auto) 29.3 21.0-51.0 % Monocytes (%) (Auto) 8.7 3.0-13.0 % Eosinophils (%) (Auto) 1.8 0.0-8.0 % Basophils (%) (Auto) 0.8 0.0-5.0 % Neutrophils # (Auto) 8.3 H 1.8-7.7 K/uL Lymphocytes # (Auto) 4.1 1.0-4.8 K/uL Monocytes # (Auto) 1.2 H 0.1-1.0 K/uL Eosinophils # (Auto) 0.25 0.00-0.70 K/uL Basophils # (Auto) 0.11 0.00-0.20 K/uL Absolute Immature Granulocyte (auto 0.08 0-1 K/uL Chemistry Labs: Test 09/30/24 05:28 09/30/24 03:18 09/29/24 19:35 09/29/24 03:09 Range/Units Whole Blood Glucose 138 H 70-110 MG/DL Sodium Level 133 L 136-145 mmol/L Potassium Level 3.9 3.5-5.1 mmol/L Chloride Level 99 L 101-111 mmol/L Carbon Dioxide Level 30 21-32 mmol/L Blood Urea Nitrogen 17 7-18 mg/dL Creatinine 1.1 0.5-1.3 mg/dL Glomerular Filtration Rate Calc 72 >90 mL/min Random Glucose 134 H 70-105 mg/dL Total Calcium 8.7 8.5-10.1 mg/dL Troponin I High Sensitivity 94228 *H 4-75 ng/L B-Type Natriuretic Peptide 84 0-100 pg/mL Test 09/29/24 02:09 Range/Units Phosphorus Level 4.3 2.5-4.9 mg/dL Magnesium Level 2.10 1.80-2.40 mg/dL Thyroid Stimulating Hormone (TSH) 3.13 0.36-3.74 uIU/mL Coagulation Labs: Test 09/30/24 09:46 09/29/24 02:09 Range/Units Activated Partial Thromboplast Time 33.3 # 26.3-35.5 SEC Prothrombin Time 11.4 9.6-11.6 SEC Prothromb Time International Ratio 1.06 0.85-1.15 Diagnostics / Radiology: [Copy/Paste Echos/Imaging Report here] Impression and Plan: [NSTEMI Pulmonary vascular congestion Epigastric pain Leukocytosis Acute renal failure secondary to ATN from dehydration Electrolyte derangement (hyponatremia, hypokalemia) Hyperglycemia in setting of type 2 diabetes mellitus Leukocytosis without left band shift Chronic problem list: diabetes mellitus, hypertension, gastritis, former light smoker] Plan: [#NSTEMI -Trop 223--83338 -ECG with biphasic T wave v2 and v3, TWI v4-v-6 -2d echo normal LVEF and no valvular pathology -repeat ECG unchanged -heparin gtt, plavix 600 mg x1, asa 325 mg x1 -c/w aspirin 81 mg qd -underwent LHC with Dr Lamb 09/29: diffusely calcific long 80% stenosis in the mid LAD, spontaneously reperfused prior to angiography with probable early washout with very high 2nd troponin of 47,283. Severe three-vessel coronary artery disease with 80% diagonal one stenosis, 70% proximal circumflex stenosis, 90% OM1 stenosis and chronically occluded mid RCA with PDA and PLV branches filling by [id number] collaterals. Evidence of old inferior wall VA by EKG with associated occluded RCA consistent with silent old inferior wall VA. - consulted CV surgery for CABG Ashley Alexis MD ] ASHLEY ALEXIS MD Sep 30, 2024 11:45
--- NOTE | 2024-09-30 12:32 | PN ---
[facility] PROGRESS NOTE Date Patient Seen: Sep 30, 2024 Time of Visit: 12:27 Supervising Physician: Dr. Raygoza Primary Care Physician: Sheyla Cedeno @ [facility] Outpatient Specialists: Inpatient Consults: Cardiology PROBLEM LIST: Non STEMI-- troponin is 221 peaked to 47K, EKG No ST elevation- HEART SCORE FOR MACE 5 pts- moderate- risk of MACE 12-16%. S/P LHC with finding of MV CAD: mid LAD, diag, OM, and RCA occlusion on 09/29/24 Chest pain secondary to above Acute renal failure secondary to ATN from dehydration Gastritis versus duodenal ulcer flare from spicy food ( patient likes to eat habanero daily) Hyponatremia Hyperglycemia in setting of type 2 diabetes mellitus Pulmonary vascular congestion- likely from acute CHF preserved EF Leukocytosis without left band shift History of diabetes mellitus, hypertension, gastritis, former light smoker INTERVAL HISTORY: Patient came to the hospital yesterday with substernal chest pain. Patient feels burning sensation in the chest 3 hours after he ate habanero. He admits eating spicy food on a daily basis. Patient has history of gastritis not on any PPI. Patient denies any history of cardiac problem other than hypertension. He has seen Dr. Gotti as outpatient for cardiac clearance. His troponin was 220 when he came in and we are trending this. We will obtain EKG. At this time patient is on heparin drip per ACS protocol. Aspirin and statin has been started. Obtain Cardiology clearance. Check BNP. Echocardiogram is pending. In the meantime, likely this gastric burning was from gastritis versus duodenal ulcer. We will start patient with GI cocktail. We will start him also on Carafate. 09/30 patient had remarkable troponin elevation up to 47 K yesterday from 220. This morning patient is upgraded to ICU secondary to persistent chest pain, he was started on nitroglycerin drip. Patient had undergone a left heart catheterization yesterday with finding of multivessel coronary artery disease, pending CV surgery recommendations for coronary artery bypass graft surgery. Patient remains on heparin drip for ACS. Continue with p.r.n. pain medication. bowel regimen. In the meantime patient is NPO pending CV surgery recommendation. REVIEW OF SYSTEMS: 12 point ROS reviewed with patient. Pertinent positives mentioned above. Otherwise negative. PHYSICAL EXAM: GENERAL: Alert, weak, awake oriented x 3 HEENT: EOMI, Sclera non icteric, moist mucosa NECK: Supple, no JVD, trachea midline LUNGS: Clear breath sounds bilaterally. No wheezes HEART: Regular rate and rhythm. Normal S1 and S2, without murmurs ABD: Abdomen soft, nontender. Bowel sounds present EXT: No clubbing cyanosis or edema NEURO: Alert and oriented X3, follows commands Vital Signs (last 8hr) Date Time Temp Pulse Resp B/P (MAP) Pulse Ox O2 Delivery O2 Flow Rate FiO2 09/30/24 10:19 117 14 125/82 (96) 94 09/30/24 10:09 116 24 93 09/30/24 10:00 104 18 N/Cannula Low lpm 2.0 28 09/30/24 09:54 115 11 95 09/30/24 09:49 115 9 138/77 (97) 96 09/30/24 09:39 117 18 97 09/30/24 09:35 117 16 137/79 (98) 96 09/30/24 09:24 115 97 09/30/24 09:19 119 6 140/83 (102) 97 09/30/24 09:10 100 Nasal Cannula* 2 28 09/30/24 09:09 118 13 98 09/30/24 08:30 100 Nasal Cannula* 2 28 09/30/24 08:10 98.1 78 18 130/72 96 Room Air 09/30/24 04:59 98.6 69 18 110/68 94 Room Air LABS: Hematology Labs: Test 09/30/24 03:18 09/28/24 20:22 Range/Units White Blood Count 11.3 H 4.8-10.8 K/uL Red Blood Count 4.62 4.50-6.20 MIL/uL Hemoglobin 14.9 14.0-18.0 g/dL Hematocrit 45.1 42-54 % Mean Corpuscular Volume 97.6 79-99 fL Mean Corpuscular Hemoglobin 32.3 27.0-33.0 pg Mean Corpuscular Hemoglobin Concent 33.0 32.0-36.0 g/dL Red Cell Distribution Width 12.0 11.0-15.5 % Platelet Count 184 130-400 K/uL Mean Platelet Volume 10.4 7.5-10.5 fL Nucleated Red Blood Cells 0.0 0.0-0.19 % Immature Granulocyte % (Auto) 0.6 0-1 % Neutrophils (%) (Auto) 58.8 40.0-77.0 % Lymphocytes (%) (Auto) 29.3 21.0-51.0 % Monocytes (%) (Auto) 8.7 3.0-13.0 % Eosinophils (%) (Auto) 1.8 0.0-8.0 % Basophils (%) (Auto) 0.8 0.0-5.0 % Neutrophils # (Auto) 8.3 H 1.8-7.7 K/uL Lymphocytes # (Auto) 4.1 1.0-4.8 K/uL Monocytes # (Auto) 1.2 H 0.1-1.0 K/uL Eosinophils # (Auto) 0.25 0.00-0.70 K/uL Basophils # (Auto) 0.11 0.00-0.20 K/uL Absolute Immature Granulocyte (auto 0.08 0-1 K/uL Chemistry Labs: Test 09/30/24 11:56 09/30/24 03:18 09/29/24 19:35 09/29/24 03:09 Range/Units Whole Blood Glucose 158 H 70-110 MG/DL Sodium Level 133 L 136-145 mmol/L Potassium Level 3.9 3.5-5.1 mmol/L Chloride Level 99 L 101-111 mmol/L Carbon Dioxide Level 30 21-32 mmol/L Blood Urea Nitrogen 17 7-18 mg/dL Creatinine 1.1 0.5-1.3 mg/dL Glomerular Filtration Rate Calc 72 >90 mL/min Random Glucose 134 H 70-105 mg/dL Total Calcium 8.7 8.5-10.1 mg/dL Troponin I High Sensitivity 77289 *H 4-75 ng/L B-Type Natriuretic Peptide 84 0-100 pg/mL Test 09/29/24 02:09 Range/Units Phosphorus Level 4.3 2.5-4.9 mg/dL Magnesium Level 2.10 1.80-2.40 mg/dL Thyroid Stimulating Hormone (TSH) 3.13 0.36-3.74 uIU/mL Coagulation Labs: Test 09/30/24 09:46 09/29/24 02:09 Range/Units Activated Partial Thromboplast Time 33.3 # 26.3-35.5 SEC Prothrombin Time 11.4 9.6-11.6 SEC Prothromb Time International Ratio 1.06 0.85-1.15 DIAGNOSTICS / RADIOLOGY RESULTS: [ ] PLAN NEURO: Minimize central acting medications as possible. Fall Precautions. Well lighted room through the day and minimize interruptions through the night to prevent acute delirium. PULMONARY: Supplemental 02 as needed Titrate Fio2 to keep Spo2 > or = 90% DuoNebs and CPT as needed IS hourly while awake for pulmonary hygiene Out of bed to chair as tolerated VAP Bundle CARDIOVASCULAR: Follow hemodynamics. Titrate vasopressor to keep MAP >65 or systolic blood pressure >95mmHg CV surgery has been consulted per cardiology recommendations DRIPS: NTG Heparin LINES: PIV GI & NUTRITION: Continue nutritional support Aspirations precautions Prokinetic agents and laxatives as needed KIDNEYS & ELECTROLYTES: Strict monitoring of intake and output Daily weights Avoid nephrotoxic agents Monitor electrolytes and replace as needed Goal urine output of 30mL/hr or 0.5mL/kg/hr ENDOCRINE: Maintain blood glucose between 100-180 at all times. Insulin sliding scale for blood glucose management INFECTIOUS DISEASE: Trend temperature. Haddad-culture if febrile. Micro: NA Antibiotics: NA HEMATOLOGY & COAGULATION: Monitor H&H. Keep Hgb > 7 Transfuse 1 unit of PRBC for Hgb < 7 Transfuse 1 pack of platelets of platelets < 20, 000 Watch for any signs and symptoms of bleeding SKIN: Pressure ulcer prevention per facility protocol Rehab: PT/OT Prophylaxis: GI: Protonix DVT: Heparin Code Status: Full Resuscitation Disposition: ICU Other: Total patient care time exceeds 35 minutes excluding all procedures. Case was discussed and seen with my supervising physician. The above plan was formulated and agreed upon. ORION ARNOLD PERSONAL CARE ATTENDANT Sep 30, 2024 12:32
--- NOTE | 2024-09-30 16:08 | CONS ---
TIME: 3:00 p.m. HISTORY OF PRESENT ILLNESS: The patient is a 69-year-old gentleman who presented with chest pain, had a left heart catheterization that showed 3-vessel coronary artery disease. Cardiac Surgery was consulted for further management. PHYSICAL EXAMINATION: NEUROLOGIC: Alert and oriented, no deficits. CARDIOVASCULAR: S1, S2, regular rate and rhythm. RESPIRATORY: Clear to auscultation bilaterally. ASSESSMENT AND PLAN: This is a 69-year-old gentleman who presented with 3-vessel coronary artery disease. He was loaded with Plavix on 09/29. So, we will have to wait at least 5 days to perform the surgery. He got 600 mg of Plavix, which is a very high dose. We will perform surgery in the upcoming days. I explained the benefits and the risks including loss of limb, loss of life, bleeding, infection, stroke and others. He understands and he wished to proceed. TID: [id number] RECEIPT: [id number]
--- NOTE | 2024-09-30 17:56 | HMCIMG ---
US CAROTID DUPLEX REASON: pre op CABG TECHNIQUE: Exam was performed using spectral analysis and color flow imaging. FINDINGS: Color flow Doppler ultrasound shows normal-appearing bifurcations. There is no anatomic evidence of significant focal narrowing. Flow velocities and velocity ratios appear normal throughout. There is antegrade flow in both vertebral arteries. RIGHT CAROTID: CCA: 82 cm/sec ICA: 94 cm/sec Ratio: ICA/CCA: 1.1 ECA: 137 cm/sec Vertebral artery: 51 cm/sec LEFT CAROTID: CCA: 74 cm/sec ICA: 65 cm/sec Ratio: ICA/CCA: 0.9 ECA: 97 cm/sec Vertebral artery: 41 cm/sec IMPRESSION: Normal bilateral carotid Doppler ultrasound.
[2024-10-01] VITALS (69 sets, daily range): BP systolic 99–171; BP diastolic 58–107; PULSE 77–110; RESP 10–194; TEMP 98.3; O2SAT 95–96
[2024-10-01 04:53] LABS: BASOPHILS # (AUTO) 0.07 K/uL (0.00-0.20); BASOPHILS % (AUTO) 0.6 % (0.0-5.0); EOSINOPHILS # (AUTO) 0.23 K/uL (0.00-0.70); EOSINOPHILS % (AUTO) 2.1 % (0.0-8.0); HEMATOCRIT 43.9 % (42-54); IMMATURE GRANULOCYTE ABSOLUTE 0.06 K/uL (0-1); LYMPHOCYTES # (AUTO) 2.2 K/uL (1.0-4.8); MEAN CORPUSCULAR HGB CONC 33.5 g/dL (32.0-36.0); MEAN CORPUSCULAR VOLUME 95.4 fL (79-99); MONOCYTES # (AUTO) 1.2 K/uL (0.1-1.0); NEUTROPHILS # (AUTO) 7.3 K/uL (1.8-7.7); NEUTROPHILS % (AUTO) 65.8 % (40.0-77.0); PLATELET COUNT (AUTO) 170 K/uL (130-400); RED CELL DISTRIBUTION WIDTH 11.9 % (11.0-15.5)
[2024-10-01 05:06] LABS: CREATININE 1.1 mg/dL (0.5-1.3); MAGNESIUM 1.8 mg/dL (1.80-2.40); POTASSIUM 4.2 mmol/L (3.5-5.1)
--- NOTE | 2024-10-01 10:09 | PN ---
[facility] CARDIOLOGY PROGRESS NOTE Date Patient Seen: Oct 01, 2024 Time of Visit: 10:08 Interval History: [ No events overnight, pending CABG. ] Physical Examination: GENERAL: [No acute distress.] HEAD: [Normal with no signs of head trauma.] EYES: [PERRLA, EOMI, conjunctiva and sclera normal.] ENT: [Hearing grossly intact, normal oropharynx.] NECK: [Supple without JVD. There is no tenderness, lymphadenopathy, or masses. No thyromegaly. Normal carotid upstrokes without bruits.] LUNGS: [Clear breath sounds bilaterally. There are right basilar rales one third of the way up the chest. No wheezes, or rhonchi.] HEART: [Normal rate and rhythm. Normal S1 and S2 without mumurs, gallop or rub.] VASC: [Peripheral pulses +2 bilaterally.] ABD: [Bowel sounds normal, soft, nontender, no masses, no organomegaly. No audible bruits.] : [Not examined] LYMPH: [No lymphadenopathy noted.] EXT: [No clubbing, cyanosis or edema.] SKIN: [No rashes or lesions noted.] NEURO: [Awake, alert, and oriented x3. No focal sensory or strength deficits noted.] Laboratory: [ ] Hematology Labs: Test 10/01/24 04:36 Range/Units White Blood Count 11.0 H 4.8-10.8 K/uL Red Blood Count 4.60 4.50-6.20 MIL/uL Hemoglobin 14.7 14.0-18.0 g/dL Hematocrit 43.9 42-54 % Mean Corpuscular Volume 95.4 79-99 fL Mean Corpuscular Hemoglobin 32.0 27.0-33.0 pg Mean Corpuscular Hemoglobin Concent 33.5 32.0-36.0 g/dL Red Cell Distribution Width 11.9 11.0-15.5 % Platelet Count 170 130-400 K/uL Mean Platelet Volume 10.5 7.5-10.5 fL Immature Granulocyte % (Auto) 0.5 0-1 % Neutrophils (%) (Auto) 65.8 40.0-77.0 % Lymphocytes (%) (Auto) 20.0 L 21.0-51.0 % Monocytes (%) (Auto) 11.0 3.0-13.0 % Eosinophils (%) (Auto) 2.1 0.0-8.0 % Basophils (%) (Auto) 0.6 0.0-5.0 % Neutrophils # (Auto) 7.3 1.8-7.7 K/uL Lymphocytes # (Auto) 2.2 1.0-4.8 K/uL Monocytes # (Auto) 1.2 H 0.1-1.0 K/uL Eosinophils # (Auto) 0.23 0.00-0.70 K/uL Basophils # (Auto) 0.07 0.00-0.20 K/uL Absolute Immature Granulocyte (auto 0.06 0-1 K/uL Nucleated Red Blood Cells 0.0 0.0-0.19 % Chemistry Labs: Test 10/01/24 06:42 10/01/24 04:36 09/29/24 19:35 Range/Units Whole Blood Glucose 150 #H 70-110 MG/DL Sodium Level 131 L 136-145 mmol/L Potassium Level 4.2 3.5-5.1 mmol/L Chloride Level 97 L 101-111 mmol/L Carbon Dioxide Level 30 21-32 mmol/L Blood Urea Nitrogen 12 7-18 mg/dL Creatinine 1.1 0.5-1.3 mg/dL Glomerular Filtration Rate Calc 72 >90 mL/min Random Glucose 127 H 70-105 mg/dL Total Calcium 8.6 8.5-10.1 mg/dL Magnesium Level 1.80 1.80-2.40 mg/dL Troponin I High Sensitivity 80916 *H 4-75 ng/L Coagulation Labs: Test 10/01/24 04:36 Range/Units Activated Partial Thromboplast Time 82.8 H 26.3-35.5 SEC Diagnostics / Radiology: [Copy/Paste Echos/Imaging Report here] Impression and Plan: [NSTEMI Pulmonary vascular congestion Epigastric pain Leukocytosis Acute renal failure secondary to ATN from dehydration Electrolyte derangement (hyponatremia, hypokalemia) Hyperglycemia in setting of type 2 diabetes mellitus Leukocytosis without left band shift Chronic problem list: diabetes mellitus, hypertension, gastritis, former light smoker] Plan: [#NSTEMI -Trop [id number] -ECG with biphasic T wave v2 and v3, TWI v4-v-6 -2d echo normal LVEF and no valvular pathology -repeat ECG unchanged -heparin gtt, plavix 600 mg x1, asa 325 mg x1 -c/w aspirin 81 mg qd -underwent LHC with Dr Lamb 09/29: diffusely calcific long 80% stenosis in the mid LAD, spontaneously reperfused prior to angiography with probable early washout with very high 2nd troponin of 47,283. Severe three-vessel coronary artery disease with 80% diagonal one stenosis, 70% proximal circumflex stenosis, 90% OM1 stenosis and chronically occluded mid RCA with PDA and PLV branches filling by [id number] collaterals. Evidence of old inferior wall MO by EKG with associated occluded RCA consistent with silent old inferior wall MO. - consulted CV surgery for CABG Ashley Alexis MD ] ASHLEY ALEXIS MD Oct 01, 2024 10:09
--- NOTE | 2024-10-01 12:08 | PN ---
[facility] PROGRESS NOTE Date Patient Seen: Oct 01, 2024 Time of Visit: 12:08 Supervising Physician: Dr. Ballesteros Primary Care Physician: Sheyla Cedeno @ [facility] Outpatient Specialists: Inpatient Consults: Cardiology PROBLEM LIST: Non STEMI-- troponin is 221 peaked to 47K, EKG No ST elevation- HEART SCORE FOR MACE 5 pts- moderate- risk of MACE 12-16%. S/P LHC with finding of MV CAD: mid LAD, diag, OM, and RCA occlusion on 09/29/24 Chest pain secondary to above Acute renal failure secondary to ATN from dehydration Gastritis versus duodenal ulcer flare from spicy food ( patient likes to eat habanero daily) Hyponatremia Hyperglycemia in setting of type 2 diabetes mellitus Pulmonary vascular congestion- likely from acute CHF preserved EF Leukocytosis without left band shift History of diabetes mellitus, hypertension, gastritis, former light smoker INTERVAL HISTORY: Patient came to the hospital yesterday with substernal chest pain. Patient feels burning sensation in the chest 3 hours after he ate habanero. He admits eating spicy food on a daily basis. Patient has history of gastritis not on any PPI. Patient denies any history of cardiac problem other than hypertension. He has seen Dr. Gotti as outpatient for cardiac clearance. His troponin was 220 when he came in and we are trending this. We will obtain EKG. At this time patient is on heparin drip per ACS protocol. Aspirin and statin has been started. Obtain Cardiology clearance. Check BNP. Echocardiogram is pending. In the meantime, likely this gastric burning was from gastritis versus duodenal ulcer. We will start patient with GI cocktail. We will start him also on Carafate. 09/30 patient had remarkable troponin elevation up to 47 K yesterday from 220. This morning patient is upgraded to ICU secondary to persistent chest pain, he was started on nitroglycerin drip. Patient had undergone a left heart catheterization yesterday with finding of multivessel coronary artery disease, pending CV surgery recommendations for coronary artery bypass graft surgery. Patient remains on heparin drip for ACS. Continue with p.r.n. pain medication. bowel regimen. In the meantime patient is NPO pending CV surgery recommendation. 10/01 patient is awake alert and oriented x3 no acute chest pain but remains on nitroglycerin drip. Patient is was on heparin drip. Vital signs blood pressure 119/68 pulse is 87. WBC is 11 this is down from 11.3 and chemistry is sodium 131 this is down from 133 yesterday. Creatinine is 1.1 this is stable. Glucose 127. Magnesium is 1.[address] electrolyte protocol. Pending CABG next week. REVIEW OF SYSTEMS: 12 point ROS reviewed with patient. Pertinent positives mentioned above. Otherwise negative. PHYSICAL EXAM: GENERAL: Alert, weak, awake oriented x 3 HEENT: EOMI, Sclera non icteric, moist mucosa NECK: Supple, no JVD, trachea midline LUNGS: Clear breath sounds bilaterally. No wheezes HEART: Regular rate and rhythm. Normal S1 and S2, without murmurs ABD: Abdomen soft, nontender. Bowel sounds present EXT: No clubbing cyanosis or edema NEURO: Alert and oriented X3, follows commands Vital Signs (last 8hr) Date Time Temp Pulse Resp B/P (MAP) Pulse Ox O2 Delivery O2 Flow Rate FiO2 10/01/24 06:30 87 21 119/68 (85) 95 10/01/24 06:00 82 20 103/59 (74) 89 10/01/24 05:30 86 18 110/69 (83) 96 10/01/24 05:00 87 24 111/62 (78) 95 10/01/24 04:34 90 21 112/65 (81) 98 LABS: Hematology Labs: Test 10/01/24 04:36 Range/Units White Blood Count 11.0 H 4.8-10.8 K/uL Red Blood Count 4.60 4.50-6.20 MIL/uL Hemoglobin 14.7 14.0-18.0 g/dL Hematocrit 43.9 42-54 % Mean Corpuscular Volume 95.4 79-99 fL Mean Corpuscular Hemoglobin 32.0 27.0-33.0 pg Mean Corpuscular Hemoglobin Concent 33.5 32.0-36.0 g/dL Red Cell Distribution Width 11.9 11.0-15.5 % Platelet Count 170 130-400 K/uL Mean Platelet Volume 10.5 7.5-10.5 fL Immature Granulocyte % (Auto) 0.5 0-1 % Neutrophils (%) (Auto) 65.8 40.0-77.0 % Lymphocytes (%) (Auto) 20.0 L 21.0-51.0 % Monocytes (%) (Auto) 11.0 3.0-13.0 % Eosinophils (%) (Auto) 2.1 0.0-8.0 % Basophils (%) (Auto) 0.6 0.0-5.0 % Neutrophils # (Auto) 7.3 1.8-7.7 K/uL Lymphocytes # (Auto) 2.2 1.0-4.8 K/uL Monocytes # (Auto) 1.2 H 0.1-1.0 K/uL Eosinophils # (Auto) 0.23 0.00-0.70 K/uL Basophils # (Auto) 0.07 0.00-0.20 K/uL Absolute Immature Granulocyte (auto 0.06 0-1 K/uL Nucleated Red Blood Cells 0.0 0.0-0.19 % Chemistry Labs: Test 10/01/24 11:13 10/01/24 04:36 09/29/24 19:35 Range/Units Whole Blood Glucose 143 H 70-110 MG/DL Sodium Level 131 L 136-145 mmol/L Potassium Level 4.2 3.5-5.1 mmol/L Chloride Level 97 L 101-111 mmol/L Carbon Dioxide Level 30 21-32 mmol/L Blood Urea Nitrogen 12 7-18 mg/dL Creatinine 1.1 0.5-1.3 mg/dL Glomerular Filtration Rate Calc 72 >90 mL/min Random Glucose 127 H 70-105 mg/dL Total Calcium 8.6 8.5-10.1 mg/dL Magnesium Level 1.80 1.80-2.40 mg/dL Troponin I High Sensitivity 84595 *H 4-75 ng/L Coagulation Labs: Test 10/01/24 10:13 Range/Units Activated Partial Thromboplast Time 56.0 #H 26.3-35.5 SEC DIAGNOSTICS / RADIOLOGY RESULTS: [ ] PLAN NEURO: Minimize central acting medications as possible. Fall Precautions. Well lighted room through the day and minimize interruptions through the night to prevent acute delirium. PULMONARY: Supplemental 02 as needed Titrate Fio2 to keep Spo2 > or = 90% DuoNebs and CPT as needed IS hourly while awake for pulmonary hygiene Out of bed to chair as tolerated VAP Bundle CARDIOVASCULAR: Follow hemodynamics. Titrate vasopressor to keep MAP >65 or systolic blood pressure >95mmHg CV surgery has been consulted per cardiology recommendations DRIPS: NTG Heparin LINES: PIV GI & NUTRITION: Continue nutritional support Aspirations precautions Prokinetic agents and laxatives as needed KIDNEYS & ELECTROLYTES: Strict monitoring of intake and output Daily weights Avoid nephrotoxic agents Monitor electrolytes and replace as needed Goal urine output of 30mL/hr or 0.5mL/kg/hr ENDOCRINE: Maintain blood glucose between 100-180 at all times. Insulin sliding scale for blood glucose management INFECTIOUS DISEASE: Trend temperature. Haddad-culture if febrile. Micro: NA Antibiotics: NA HEMATOLOGY & COAGULATION: Monitor H&H. Keep Hgb > 7 Transfuse 1 unit of PRBC for Hgb < 7 Transfuse 1 pack of platelets of platelets < 20, 000 Watch for any signs and symptoms of bleeding SKIN: Pressure ulcer prevention per facility protocol Rehab: PT/OT Prophylaxis: GI: Protonix DVT: Heparin Code Status: Full Resuscitation Disposition: ICU Other: Total patient care time exceeds 35 minutes excluding all procedures. Case was discussed and seen with my supervising physician. The above plan was formulated and agreed upon. ORION ARNOLD [facility] Oct 01, 2024 12:08
[2024-10-01] MEDS ORDERED: PoTASSium chloRIDE 20MEQ/100ML 100 ML IV PRN ×2 (12:30)
[2024-10-01] MEDS ORDERED: PoTASSium chl 10% ELIXIR 20MEQ 20 MEQ/15 ML UDCUP PO PRN (12:30)
[2024-10-01] MEDS ORDERED: PoTASSium chloRIDE 20MEQ ER 20 MEQ ERTAB PO PRN (12:30)
[2024-10-01] MEDS: MAGNESIUM 2GM PREMIX 50ML 50 ML IV PRN (13:57)
[2024-10-01] MEDS ORDERED: LIDO 2% VISC 30ML+MAG/AL/SIMETH 30ML+DICYCLOMINE 20MG 10ML PO PRN (19:30)
[2024-10-01] MEDS: PHARMACY COMMUNICATION MISC SCH (19:30)
[2024-10-01] MEDS ORDERED: COMPOUND PO MISCELLANEOUS 1 EACH MISC MISC PRN (19:30)
[2024-10-02] VITALS (99 sets, daily range): BP systolic 91–160; BP diastolic 42–93; PULSE 79–111; RESP 10–57; TEMP 98.4–98.9; O2SAT 93–96
[2024-10-02 04:28] LABS: HEMATOCRIT 43.5 % (42-54); RED BLOOD CELL COUNT(AUTO) 4.63 MIL/uL (4.50-6.20); RED CELL DISTRIBUTION WIDTH 11.8 % (11.0-15.5); WHITE BLOOD COUNT (AUTO) 11.1 K/uL (4.8-10.8)
[2024-10-02 04:56] LABS: CREATININE 0.9 mg/dL (0.5-1.3); MAGNESIUM 1.9 mg/dL (1.80-2.40); POTASSIUM 3.9 mmol/L (3.5-5.1)
--- NOTE | 2024-10-02 06:24 | PN ---
[facility] CARDIOLOGY PROGRESS NOTE Date Patient Seen: Oct 02, 2024 Time of Visit: 06:23 Interval History: [ No events overnight, pending CABG. ] Physical Examination: GENERAL: [No acute distress.] HEAD: [Normal with no signs of head trauma.] EYES: [PERRLA, EOMI, conjunctiva and sclera normal.] ENT: [Hearing grossly intact, normal oropharynx.] NECK: [Supple without JVD. There is no tenderness, lymphadenopathy, or masses. No thyromegaly. Normal carotid upstrokes without bruits.] LUNGS: [Clear breath sounds bilaterally. There are right basilar rales one third of the way up the chest. No wheezes, or rhonchi.] HEART: [Normal rate and rhythm. Normal S1 and S2 without mumurs, gallop or rub.] VASC: [Peripheral pulses +2 bilaterally.] ABD: [Bowel sounds normal, soft, nontender, no masses, no organomegaly. No audible bruits.] : [Not examined] LYMPH: [No lymphadenopathy noted.] EXT: [No clubbing, cyanosis or edema.] SKIN: [No rashes or lesions noted.] NEURO: [Awake, alert, and oriented x3. No focal sensory or strength deficits noted.] Laboratory: [ ] Hematology Labs: Test 10/02/24 04:10 10/01/24 04:36 Range/Units White Blood Count 11.1 H 4.8-10.8 K/uL Red Blood Count 4.63 4.50-6.20 MIL/uL Hemoglobin 14.8 14.0-18.0 g/dL Hematocrit 43.5 42-54 % Mean Corpuscular Volume 94.0 79-99 fL Mean Corpuscular Hemoglobin 32.0 27.0-33.0 pg Mean Corpuscular Hemoglobin Concent 34.0 32.0-36.0 g/dL Red Cell Distribution Width 11.8 11.0-15.5 % Platelet Count 184 130-400 K/uL Mean Platelet Volume 10.5 7.5-10.5 fL Nucleated Red Blood Cells 0.0 0.0-0.19 % Immature Granulocyte % (Auto) 0.5 0-1 % Neutrophils (%) (Auto) 65.8 40.0-77.0 % Lymphocytes (%) (Auto) 20.0 L 21.0-51.0 % Monocytes (%) (Auto) 11.0 3.0-13.0 % Eosinophils (%) (Auto) 2.1 0.0-8.0 % Basophils (%) (Auto) 0.6 0.0-5.0 % Neutrophils # (Auto) 7.3 1.8-7.7 K/uL Lymphocytes # (Auto) 2.2 1.0-4.8 K/uL Monocytes # (Auto) 1.2 H 0.1-1.0 K/uL Eosinophils # (Auto) 0.23 0.00-0.70 K/uL Basophils # (Auto) 0.07 0.00-0.20 K/uL Absolute Immature Granulocyte (auto 0.06 0-1 K/uL Chemistry Labs: Test 10/02/24 04:10 10/01/24 20:43 Range/Units Sodium Level 131 L 136-145 mmol/L Potassium Level 3.9 3.5-5.1 mmol/L Chloride Level 96 L 101-111 mmol/L Carbon Dioxide Level 30 21-32 mmol/L Blood Urea Nitrogen 9 7-18 mg/dL Creatinine 0.9 0.5-1.3 mg/dL Glomerular Filtration Rate Calc 92 >90 mL/min Random Glucose 142 H 70-105 mg/dL Total Calcium 8.6 8.5-10.1 mg/dL Magnesium Level 1.90 1.80-2.40 mg/dL Whole Blood Glucose 173 H 70-110 MG/DL Coagulation Labs: Test 10/01/24 16:38 Range/Units Activated Partial Thromboplast Time 48.6 H 26.3-35.5 SEC Diagnostics / Radiology: [Copy/Paste Echos/Imaging Report here] Impression and Plan: [NSTEMI Pulmonary vascular congestion Epigastric pain Leukocytosis Acute renal failure secondary to ATN from dehydration Electrolyte derangement (hyponatremia, hypokalemia) Hyperglycemia in setting of type 2 diabetes mellitus Leukocytosis without left band shift Chronic problem list: diabetes mellitus, hypertension, gastritis, former light smoker] Plan: [#NSTEMI -Trop [id number] -ECG with biphasic T wave v2 and v3, TWI v4-v-6 -2d echo normal LVEF and no valvular pathology -repeat ECG unchanged -heparin gtt, plavix 600 mg x1, asa 325 mg x1 -c/w aspirin 81 mg qd -nitro gtt -underwent LHC with Dr Lamb 09/29: diffusely calcific long 80% stenosis in the mid LAD, spontaneously reperfused prior to angiography with probable early washout with very high 2nd troponin of 47,283. Severe three-vessel coronary artery disease with 80% diagonal one stenosis, 70% proximal circumflex stenosis, 90% OM1 stenosis and chronically occluded mid RCA with PDA and PLV branches filling by [id number] collaterals. Evidence of old inferior wall [place] by EKG with associated occluded RCA consistent with silent old inferior wall [place]. - consulted CV surgery for CABG, pending 5 days post first plavix dose 10/30 Ashley Alexis MD ] ASHLEY ALEXIS MD Oct 02, 2024 06:24
--- NOTE | 2024-10-02 10:57 | PN ---
[facility] PROGRESS NOTE Date Patient Seen: Oct 02, 2024 Time of Visit: 10:55 Supervising Physician: Dr. Parr Primary Care Physician: Sheyla Cedeno @ [facility] Outpatient Specialists: Inpatient Consults: Cardiology PROBLEM LIST: Non STEMI-- troponin is 221 peaked to 47K, EKG No ST elevation- HEART SCORE FOR MACE 5 pts- moderate- risk of MACE 12-16%. S/P LHC with finding of MV CAD: mid LAD, diag, OM, and RCA occlusion on 09/29/24 Chest pain secondary to above Acute renal failure secondary to ATN from dehydration Gastritis versus duodenal ulcer flare from spicy food ( patient likes to eat habanero daily) Hyponatremia Suspect obstructive sleep apnea Hyperglycemia in setting of type 2 diabetes mellitus Pulmonary vascular congestion- likely from acute CHF preserved EF Leukocytosis without left band shift History of diabetes mellitus, hypertension, gastritis, former light smoker INTERVAL HISTORY: Patient came to the hospital yesterday with substernal chest pain. Patient feels burning sensation in the chest 3 hours after he ate habanero. He admits eating spicy food on a daily basis. Patient has history of gastritis not on any PPI. Patient denies any history of cardiac problem other than hypertension. He has seen Dr. Gotti as outpatient for cardiac clearance. His troponin was 220 when he came in and we are trending this. We will obtain EKG. At this time patient is on heparin drip per ACS protocol. Aspirin and statin has been sta rted. Obtain Cardiology clearance. Check BNP. Echocardiogram is pending. In the meantime, likely this gastric burning was from gastritis versus duodenal ulcer. We will start patient with GI cocktail. We will start him also on Carafate. 09/30 patient had remarkable troponin elevation up to 47 K yesterday from 220. This morning patient is upgraded to ICU secondary to persistent chest pain, he was started on nitroglycerin drip. Patient had undergone a left heart catheterization yesterday with finding of multivessel coronary artery disease, pending CV surgery recommendations for coronary artery bypass graft surgery. Patient remains on heparin drip for ACS. Continue with p.r.n. pain medication. bowel regimen. In the meantime patient is NPO pending CV surgery recommendation. 10/01 patient is awake alert and oriented x3 no acute chest pain but remains on nitroglycerin drip. Patient is was on heparin drip. Vital signs blood pressure 119/68 pulse is 87. WBC is 11 this is down from 11.3 and chemistry is sodium 131 this is down from 133 yesterday. Creatinine is 1.1 this is stable. Glucose 127. Magnesium is 1.[address] electrolyte protocol. Pending CABG next week. 10/02 patient is awake alert oriented x3 no chest pain at this time. Patient remains on nitroglycerin drip titration. According to in tartrate for chest pain. This morning lab is unremarkable. Blood pressure 118/68 heart rate is 89. T-max is 98.4. Echocardiogram with LVEF of 35%. Patient is on aspirin and statin already. Consider beta-deb. Diuretic as needed. Patient is reported to have been hypoxic at night at sleep time. Patient reported that he has sleep apnea but never get tested. We will start patient on low CPAP at night with 8 cm Hg. We will need outpatient sleep apnea study. Patient is pending CV surgery for CABG. REVIEW OF SYSTEMS: 12 point ROS reviewed with patient. Pertinent positives mentioned above. Otherwise negative. PHYSICAL EXAM: GENERAL: Alert, weak, awake oriented x 3 HEENT: EOMI, Sclera non icteric, moist mucosa NECK: Supple, no JVD, trachea midline LUNGS: Clear breath sounds bilaterally. No wheezes HEART: Regular rate and rhythm. Normal S1 and S2, without murmurs ABD: Abdomen soft, nontender. Bowel sounds present EXT: No clubbing cyanosis or edema NEURO: Alert and oriented X3, follows commands Vital Signs (last 8hr) Date Time Temp Pulse Resp B/P (MAP) Pulse Ox O2 Delivery O2 Flow Rate FiO2 10/02/24 08:00 95 Room Air* 0 21 10/02/24 06:30 89 16 118/68 98 10/02/24 06:15 90 24 116/68 98 10/02/24 06:00 93 24 125/86 96 10/02/24 05:45 93 18 129/80 98 10/02/24 05:30 85 18 123/75 98 10/02/24 05:15 87 22 112/72 97 10/02/24 05:00 91 18 132/72 97 10/02/24 04:45 93 15 122/67 95 10/02/24 04:30 90 15 113/69 96 10/02/24 04:15 90 15 125/76 96 10/02/24 04:00 95 Nasal Cannula* 3 32 10/02/24 04:00 98.4 96 25 129/83 97 Nasal Cannula 3.0 10/02/24 03:45 88 33 103/72 97 10/02/24 03:30 95 17 120/72 98 10/02/24 03:15 93 24 125/89 96 10/02/24 03:00 92 17 122/73 96 LABS: Hematology Labs: Test 10/02/24 04:10 10/01/24 04:36 Range/Units White Blood Count 11.1 H 4.8-10.8 K/uL Red Blood Count 4.63 4.50-6.20 MIL/uL Hemoglobin 14.8 14.0-18.0 g/dL Hematocrit 43.5 42-54 % Mean Corpuscular Volume 94.0 79-99 fL Mean Corpuscular Hemoglobin 32.0 27.0-33.0 pg Mean Corpuscular Hemoglobin Concent 34.0 32.0-36.0 g/dL Red Cell Distribution Width 11.8 11.0-15.5 % Platelet Count 184 130-400 K/uL Mean Platelet Volume 10.5 7.5-10.5 fL Nucleated Red Blood Cells 0.0 0.0-0.19 % Immature Granulocyte % (Auto) 0.5 0-1 % Neutrophils (%) (Auto) 65.8 40.0-77.0 % Lymphocytes (%) (Auto) 20.0 L 21.0-51.0 % Monocytes (%) (Auto) 11.0 3.0-13.0 % Eosinophils (%) (Auto) 2.1 0.0-8.0 % Basophils (%) (Auto) 0.6 0.0-5.0 % Neutrophils # (Auto) 7.3 1.8-7.7 K/uL Lymphocytes # (Auto) 2.2 1.0-4.8 K/uL Monocytes # (Auto) 1.2 H 0.1-1.0 K/uL Eosinophils # (Auto) 0.23 0.00-0.70 K/uL Basophils # (Auto) 0.07 0.00-0.20 K/uL Absolute Immature Granulocyte (auto 0.06 0-1 K/uL Chemistry Labs: Test 10/02/24 04:10 10/01/24 20:43 Range/Units Sodium Level 131 L 136-145 mmol/L Potassium Level 3.9 3.5-5.1 mmol/L Chloride Level 96 L 101-111 mmol/L Carbon Dioxide Level 30 21-32 mmol/L Blood Urea Nitrogen 9 7-18 mg/dL Creatinine 0.9 0.5-1.3 mg/dL Glomerular Filtration Rate Calc 92 >90 mL/min Random Glucose 142 H 70-105 mg/dL Total Calcium 8.6 8.5-10.1 mg/dL Magnesium Level 1.90 1.80-2.40 mg/dL Whole Blood Glucose 173 H 70-110 MG/DL Coagulation Labs: Test 10/01/24 16:38 Range/Units Activated Partial Thromboplast Time 48.6 H 26.3-35.5 SEC DIAGNOSTICS / RADIOLOGY RESULTS: [ ] PLAN NEURO: Minimize central acting medications as possible. Fall Precautions. Well lighted room through the day and minimize interruptions through the night to prevent acute delirium. PULMONARY: Supplemental 02 as needed Titrate Fio2 to keep Spo2 > or = 90% DuoNebs and CPT as needed IS hourly while awake for pulmonary hygiene Out of bed to chair as tolerated VAP Bundle CARDIOVASCULAR: Follow hemodynamics. Titrate vasopressor to keep MAP >65 or systolic blood pressure >95mmHg CV surgery has been consulted per cardiology recommendations DRIPS: NTG Heparin LINES: PIV GI & NUTRITION: Continue nutritional support Aspirations precautions Prokinetic agents and laxatives as needed KIDNEYS & ELECTROLYTES: Strict monitoring of intake and output Daily weights Avoid nephrotoxic agents Monitor electrolytes and replace as needed Goal urine output of 30mL/hr or 0.5mL/kg/hr ENDOCRINE: Maintain blood glucose between 100-180 at all times. Insulin sliding scale for blood glucose management INFECTIOUS DISEASE: Trend temperature. Haddad-culture if febrile. Micro: NA Antibiotics: NA HEMATOLOGY & COAGULATION: Monitor H&H. Keep Hgb > 7 Transfuse 1 unit of PRBC for Hgb < 7 Transfuse 1 pack of platelets of platelets < 20, 000 Watch for any signs and symptoms of bleeding SKIN: Pressure ulcer prevention per facility protocol Rehab: PT/OT Prophylaxis: GI: Protonix DVT: Heparin Code Status: Full Resuscitation Disposition: ICU Other: Total patient care time exceeds 35 minutes excluding all procedures. Case was discussed and seen with my supervising physician. The above plan was formulated and agreed upon. ORION ARNOLD [employer] Oct 02, 2024 10:57
[2024-10-02] MEDS: metoPROLOL tartRATE 25 MG TAB PO ONE (11:53)
[2024-10-02] MEDS: metoPROLOL tartRATE 25 MG TAB PO SCH (21:09)
[2024-10-03] VITALS (88 sets, daily range): BP systolic 98–149; BP diastolic 48–106; PULSE 68–96; RESP 14–123; TEMP 97.2–98.9; O2SAT 93–99
--- NOTE | 2024-10-03 09:09 | PN ---
[facility] CARDIOLOGY PROGRESS NOTE Date Patient Seen: Oct 03, 2024 Time of Visit: 09:09 Interval History: [ No events overnight, pending CABG. ] Physical Examination: GENERAL: [No acute distress.] HEAD: [Normal with no signs of head trauma.] EYES: [PERRLA, EOMI, conjunctiva and sclera normal.] ENT: [Hearing grossly intact, normal oropharynx.] NECK: [Supple without JVD. There is no tenderness, lymphadenopathy, or masses. No thyromegaly. Normal carotid upstrokes without bruits.] LUNGS: [Clear breath sounds bilaterally. There are right basilar rales one third of the way up the chest. No wheezes, or rhonchi.] HEART: [Normal rate and rhythm. Normal S1 and S2 without mumurs, gallop or rub.] VASC: [Peripheral pulses +2 bilaterally.] ABD: [Bowel sounds normal, soft, nontender, no masses, no organomegaly. No audible bruits.] : [Not examined] LYMPH: [No lymphadenopathy noted.] EXT: [No clubbing, cyanosis or edema.] SKIN: [No rashes or lesions noted.] NEURO: [Awake, alert, and oriented x3. No focal sensory or strength deficits noted.] Laboratory: [ ] Hematology Labs: Test 10/02/24 04:10 Range/Units White Blood Count 11.1 H 4.8-10.8 K/uL Red Blood Count 4.63 4.50-6.20 MIL/uL Hemoglobin 14.8 14.0-18.0 g/dL Hematocrit 43.5 42-54 % Mean Corpuscular Volume 94.0 79-99 fL Mean Corpuscular Hemoglobin 32.0 27.0-33.0 pg Mean Corpuscular Hemoglobin Concent 34.0 32.0-36.0 g/dL Red Cell Distribution Width 11.8 11.0-15.5 % Platelet Count 184 130-400 K/uL Mean Platelet Volume 10.5 7.5-10.5 fL Nucleated Red Blood Cells 0.0 0.0-0.19 % Chemistry Labs: Test 10/02/24 04:10 10/01/24 20:43 Range/Units Sodium Level 131 L 136-145 mmol/L Potassium Level 3.9 3.5-5.1 mmol/L Chloride Level 96 L 101-111 mmol/L Carbon Dioxide Level 30 21-32 mmol/L Blood Urea Nitrogen 9 7-18 mg/dL Creatinine 0.9 0.5-1.3 mg/dL Glomerular Filtration Rate Calc 92 >90 mL/min Random Glucose 142 H 70-105 mg/dL Total Calcium 8.6 8.5-10.1 mg/dL Magnesium Level 1.90 1.80-2.40 mg/dL Whole Blood Glucose 173 H 70-110 MG/DL Coagulation Labs: Test 10/03/24 04:22 Range/Units Activated Partial Thromboplast Time 64.0 H 26.3-35.5 SEC Diagnostics / Radiology: [Copy/Paste Echos/Imaging Report here] Impression and Plan: [NSTEMI Pulmonary vascular congestion Epigastric pain Leukocytosis Acute renal failure secondary to ATN from dehydration Electrolyte derangement (hyponatremia, hypokalemia) Hyperglycemia in setting of type 2 diabetes mellitus Leukocytosis without left band shift Chronic problem list: diabetes mellitus, hypertension, gastritis, former light smoker] Plan: [#NSTEMI -Trop [id number] -ECG with biphasic T wave v2 and v3, TWI v4-v-6 -2d echo normal LVEF and no valvular pathology -repeat ECG unchanged -heparin gtt, plavix 600 mg x1, asa 325 mg x1 -c/w aspirin 81 mg qd -nitro gtt -underwent LHC with Dr Lamb 09/29: diffusely calcific long 80% stenosis in the mid LAD, spontaneously reperfused prior to angiography with probable early washout with very high 2nd troponin of 47,283. Severe three-vessel coronary artery disease with 80% diagonal one stenosis, 70% proximal circumflex stenosis, 90% OM1 stenosis and chronically occluded mid RCA with PDA and PLV branches filling by [id number] collaterals. Evidence of old inferior wall [place] by EKG with associated occluded RCA consistent with silent old inferior wall [place]. - consulted CV surgery for CABG, pending 5 days post first plavix dose 10/30 Ashley Alexis MD ] ASHLEY ALEXIS MD Oct 03, 2024 09:09
--- NOTE | 2024-10-03 12:05 | PN ---
[facility] PROGRESS NOTE Date Patient Seen: Oct 03, 2024 Time of Visit: 12:04 Supervising Physician: Dr. Parr Primary Care Physician: Sheyla Cedeno @ [facility] Outpatient Specialists: Inpatient Consults: Cardiology PROBLEM LIST: Non STEMI-- troponin is 221 peaked to 47K, EKG No ST elevation- HEART SCORE FOR MACE 5 pts- moderate- risk of MACE 12-16%. S/P LHC with finding of MV CAD: mid LAD, diag, OM, and RCA occlusion on 09/29/24 Chest pain secondary to above Obstructed sleep apnea- witnessed here during hospital stay Acute renal failure secondary to ATN from dehydration Gastritis versus duodenal ulcer flare from spicy food ( patient likes to eat habanero daily) Hyponatremia Suspect obstructive sleep apnea Hyperglycemia in setting of type 2 diabetes mellitus Pulmonary vascular congestion- likely from acute CHF preserved EF Leukocytosis without left band shift Obesity BMI 32 History of diabetes mellitus, hypertension, gastritis, former light smoker INTERVAL HISTORY: Patient came to the hospital yesterday with substernal chest pain. Patient feels burning sensation in the chest 3 hours after he ate habanero. He admits eating spicy food on a daily basis. Patient has history of gastritis not on any PPI. Patient denies any history of cardiac problem other than hypertension. He has seen Dr. Gotti as outpatient for cardiac clearance. His troponin was 220 when he came in and we are trending this. We will obtain EKG. At this time silvia hamilton is on heparin drip per ACS protocol. Aspirin and statin has been started. Obtain Cardiology clearance. Check BNP. Echocardiogram is pending. In the meantime, likely this gastric burning was from gastritis versus duodenal ulcer. We will start patient with GI cocktail. We will start him also on Carafate. 09/30 patient had remarkable troponin elevation up to 47 K yesterday from 220. This morning patient is upgraded to ICU secondary to persistent chest pain, he was started on nitroglycerin drip. Patient had undergone a left heart catheterization yesterday with finding of multivessel coronary artery disease, pending CV surgery recommendations for coronary artery bypass graft surgery. Patient remains on heparin drip for ACS. Continue with p.r.n. pain medication. bowel regimen. In the meantime patient is NPO pending CV surgery recommendation. 10/01 patient is awake alert and oriented x3 no acute chest pain but remains on nitroglycerin drip. Patient is was on heparin drip. Vital signs blood pressure 119/68 pulse is 87. WBC is 11 this is down from 11.3 and chemistry is sodium 131 this is down from 133 yesterday. Creatinine is 1.1 this is stable. Glucose 127. Magnesium is 1.[address] electrolyte protocol. Pending CABG next week. 10/02 patient is awake alert oriented x3 no chest pain at this time. Patient remains on nitroglycerin drip titration. According to in tartrate for chest pain. This morning lab is unremarkable. Blood pressure 118/68 heart rate is 89. T-max is 98.4. Echocardiogram with LVEF of 35%. Patient is on aspirin and statin already. Consider beta-deb. Diuretic as needed. Patient is reporte d to have been hypoxic at night at sleep time. Patient reported that he has sleep apnea but never get tested. We will start patient on low CPAP at night with 8 cm Hg. We will need outpatient sleep apnea study. Patient is pending CV surgery for CABG. 10/03 patient is awake alert oriented x3 , no acute distress. Patient was tolerating CPAP overnight for 2 hours. Continued at nighttime. At this time, we can teach him how to use incentive spirometry. He remains on 2 L nasal cannula with sats 99%. Continue to wean down as tolerated. He has holiday lab this morning , we can check lab tomorrow morning. Otherwise continue with ni troglycerin drip and heparin drip. Patient has been started on beta-deb. REVIEW OF SYSTEMS: 12 point ROS reviewed with patient. Pertinent positives mentioned above. Otherwise negative. PHYSICAL EXAM: GENERAL: Alert, weak, awake oriented x 3 HEENT: EOMI, Sclera non icteric, moist mucosa NECK: Supple, no JVD, trachea midline LUNGS: Clear breath sounds bilaterally. No wheezes HEART: Regular rate and rhythm. Normal S1 and S2, without murmurs ABD: Abdomen soft, nontender. Bowel sounds present EXT: No clubbing cyanosis or edema NEURO: Alert and oriented X3, follows commands Vital Signs (last 8hr) Date Time Temp Pulse Resp B/P (MAP) Pulse Ox O2 Delivery O2 Flow Rate FiO2 10/03/24 11:35 77 28 127/76 99 Nasal Cannula 10/03/24 11:20 78 20 138/106 99 Nasal Cannula 10/03/24 11:04 99.0 72 18 131/77 98 Nasal Cannula 10/03/24 10:49 79 34 127/71 98 Nasal Cannula 10/03/24 10:34 79 26 131/62 97 Nasal Cannula 10/03/24 10:20 73 39 121/67 96 Nasal Cannula 10/03/24 10:04 85 22 125/89 98 Nasal Cannula 10/03/24 09:49 92 30 114/76 97 Nasal Cannula 10/03/24 09:34 93 24 123/70 96 Nasal Cannula 10/03/24 09:19 95 26 129/79 98 Nasal Cannula 10/03/24 09:04 96 24 137/84 96 Nasal Cannula 10/03/24 08:49 91 22 137/82 96 Nasal Cannula 10/03/24 08:34 88 20 126/70 98 Nasal Cannula 10/03/24 08:00 97 Nasal Cannula* 2 28 10/03/24 07:50 87 18 3.0 32 10/03/24 07:34 84 16 126/74 97 Nasal Cannula 2.0 10/03/24 07:19 98.2 89 24 133/86 98 Nasal Cannula 2.0 10/03/24 07:04 83 24 121/95 98 Nasal Cannula 2.0 10/03/24 06:49 87 26 131/74 97 Nasal Cannula 2.0 10/03/24 05:48 78 25 111/65 98 Nasal Cannula 2.0 10/03/24 05:34 88 20 105/69 95 Nasal Cannula 2.0 10/03/24 05:18 80 21 120/63 95 Nasal Cannula 2.0 10/03/24 05:03 85 24 115/76 73 Nasal Cannula 2.0 10/03/24 04:48 84 27 123/88 98 Nasal Cannula 2.0 10/03/24 04:35 87 30 109/66 97 Nasal Cannula 2.0 10/03/24 04:19 84 27 122/55 98 Nasal Cannula 2.0 LABS: Hematology Labs: Test 10/02/24 04:10 Range/Units White Blood Count 11.1 H 4.8-10.8 K/uL Red Blood Count 4.63 4.50-6.20 MIL/uL Hemoglobin 14.8 14.0-18.0 g/dL Hematocrit 43.5 42-54 % Mean Corpuscular Volume 94.0 79-99 fL Mean Corpuscular Hemoglobin 32.0 27.0-33.0 pg Mean Corpuscular Hemoglobin Concent 34.0 32.0-36.0 g/dL Red Cell Distribution Width 11.8 11.0-15.5 % Platelet Count 184 130-400 K/uL Mean Platelet Volume 10.5 7.5-10.5 fL Nucleated Red Blood Cells 0.0 0.0-0.19 % Chemistry Labs: Test 10/02/24 04:10 10/01/24 20:43 Range/Units Sodium Level 131 L 136-145 mmol/L Potassium Level 3.9 3.5-5.1 mmol/L Chloride Level 96 L 101-111 mmol/L Carbon Dioxide Level 30 21-32 mmol/L Blood Urea Nitrogen 9 7-18 mg/dL Creatinine 0.9 0.5-1.3 mg/dL Glomerular Filtration Rate Calc 92 >90 mL/min Random Glucose 142 H 70-105 mg/dL Total Calcium 8.6 8.5-10.1 mg/dL Magnesium Level 1.90 1.80-2.40 mg/dL Whole Blood Glucose 173 H 70-110 MG/DL Coagulation Labs: Test 10/03/24 04:22 Range/Units Activated Partial Thromboplast Time 64.0 H 26.3-35.5 SEC DIAGNOSTICS / RADIOLOGY RESULTS: [ ] PLAN NEURO: Minimize central acting medications as possible. Fall Precautions. Well lighted room through the day and minimize interruptions through the night to prevent acute delirium. PULMONARY: Supplemental 02 as needed Titrate Fio2 to keep Spo2 > or = 90% DuoNebs and CPT as needed IS hourly while awake for pulmonary hygiene Out of bed to chair as tolerated VAP Bundle CARDIOVASCULAR: Follow hemodynamics. Titrate vasopressor to keep MAP >65 or systolic blood pressure >95mmHg CV surgery has been consulted per cardiology recommendations DRIPS: NTG Heparin LINES: PIV GI & NUTRITION: Continue nutritional support Aspirations precautions Prokinetic agents and laxatives as needed KIDNEYS & ELECTROLYTES: Strict monitoring of intake and output Daily weights Avoid nephrotoxic agents Monitor electrolytes and replace as needed Goal urine output of 30mL/hr or 0.5mL/kg/hr ENDOCRINE: Maintain blood glucose between 100-180 at all times. Insulin sliding scale for blood glucose management INFECTIOUS DISEASE: Trend temperature. Haddad-culture if febrile. Micro: NA Antibiotics: NA HEMATOLOGY & COAGULATION: Monitor H&H. Keep Hgb > 7 Transfuse 1 unit of PRBC for Hgb < 7 Transfuse 1 pack of platelets of platelets < 20, 000 Watch for any signs and symptoms of bleeding SKIN: Pressure ulcer prevention per facility protocol Rehab: PT/OT Prophylaxis: GI: Protonix DVT: Heparin Code Status: Full Resuscitation Disposition: ICU Other: Total patient care time exceeds 35 minutes excluding all procedures. Case was discussed and seen with my supervising physician. The above plan was formulated and agreed upon. ORION ARNOLD [facility] Oct 03, 2024 12:05
[2024-10-04] VITALS (103 sets, daily range): BP systolic 94–149; BP diastolic 45–88; PULSE 63–97; RESP 14–112; TEMP 98–98.8; O2SAT 94–100
[2024-10-04 05:53] LABS: BASOPHILS # (AUTO) 0.05 K/uL (0.00-0.20); BASOPHILS % (AUTO) 0.5 % (0.0-5.0); EOSINOPHILS # (AUTO) 0.36 K/uL (0.00-0.70); EOSINOPHILS % (AUTO) 3.7 % (0.0-8.0); HEMATOCRIT 42.2 % (42-54); IMMATURE GRANULOCYTE ABSOLUTE 0.03 K/uL (0-1); LYMPHOCYTES % (AUTO) 20.6 % (21.0-51.0); MEAN CORPUSCULAR HEMOGLOBIN 31.9 pg (27.0-33.0); MEAN CORPUSCULAR HGB CONC 33.6 g/dL (32.0-36.0); MEAN CORPUSCULAR VOLUME 94.8 fL (79-99); MONOCYTES % (AUTO) 10.6 % (3.0-13.0); NEUTROPHILS # (AUTO) 6.3 K/uL (1.8-7.7); NEUTROPHILS % (AUTO) 64.3 % (40.0-77.0); PLATELET COUNT (AUTO) 198 K/uL (130-400); RED BLOOD CELL COUNT(AUTO) 4.45 MIL/uL (4.50-6.20); RED CELL DISTRIBUTION WIDTH 12.1 % (11.0-15.5); WHITE BLOOD COUNT (AUTO) 9.8 K/uL (4.8-10.8)
[2024-10-04 06:17] LABS: ALBUMIN 3.2 g/dL (3.5-5.0); BILIRUBIN,TOTAL 0.5 mg/dL (0.2-1.0); POTASSIUM 4.2 mmol/L (3.5-5.1); TOTAL PROTEIN, SERUM 6.8 g/dL (6.0-8.3)
--- NOTE | 2024-10-04 09:51 | PN ---
[facility] CARDIOLOGY PROGRESS NOTE Date Patient Seen: Oct 04, 2024 Time of Visit: 09:50 Interval History: [ No events overnight, pending CABG. ] Physical Examination: GENERAL: [No acute distress.] HEAD: [Normal with no signs of head trauma.] EYES: [PERRLA, EOMI, conjunctiva and sclera normal.] ENT: [Hearing grossly intact, normal oropharynx.] NECK: [Supple without JVD. There is no tenderness, lymphadenopathy, or masses. No thyromegaly. Normal carotid upstrokes without bruits.] LUNGS: [Clear breath sounds bilaterally. There are right basilar rales one third of the way up the chest. No wheezes, or rhonchi.] HEART: [Normal rate and rhythm. Normal S1 and S2 without mumurs, gallop or rub.] VASC: [Peripheral pulses +2 bilaterally.] ABD: [Bowel sounds normal, soft, nontender, no masses, no organomegaly. No audible bruits.] : [Not examined] LYMPH: [No lymphadenopathy noted.] EXT: [No clubbing, cyanosis or edema.] SKIN: [No rashes or lesions noted.] NEURO: [Awake, alert, and oriented x3. No focal sensory or strength deficits noted.] Laboratory: [ ] Hematology Labs: Test 10/04/24 05:46 Range/Units White Blood Count 9.8 4.8-10.8 K/uL Red Blood Count 4.45 L 4.50-6.20 MIL/uL Hemoglobin 14.2 14.0-18.0 g/dL Hematocrit 42.2 42-54 % Mean Corpuscular Volume 94.8 79-99 fL Mean Corpuscular Hemoglobin 31.9 27.0-33.0 pg Mean Corpuscular Hemoglobin Concent 33.6 32.0-36.0 g/dL Red Cell Distribution Width 12.1 11.0-15.5 % Platelet Count 198 130-400 K/uL Mean Platelet Volume 10.5 7.5-10.5 fL Immature Granulocyte % (Auto) 0.3 0-1 % Neutrophils (%) (Auto) 64.3 40.0-77.0 % Lymphocytes (%) (Auto) 20.6 L 21.0-51.0 % Monocytes (%) (Auto) 10.6 3.0-13.0 % Eosinophils (%) (Auto) 3.7 0.0-8.0 % Basophils (%) (Auto) 0.5 0.0-5.0 % Neutrophils # (Auto) 6.3 1.8-7.7 K/uL Lymphocytes # (Auto) 2.0 1.0-4.8 K/uL Monocytes # (Auto) 1.0 0.1-1.0 K/uL Eosinophils # (Auto) 0.36 0.00-0.70 K/uL Basophils # (Auto) 0.05 0.00-0.20 K/uL Absolute Immature Granulocyte (auto 0.03 0-1 K/uL Nucleated Red Blood Cells 0.0 0.0-0.19 % Chemistry Labs: Test 10/04/24 05:46 Range/Units Sodium Level 134 L 136-145 mmol/L Potassium Level 4.2 3.5-5.1 mmol/L Chloride Level 100 L 101-111 mmol/L Carbon Dioxide Level 26 21-32 mmol/L Blood Urea Nitrogen 12 7-18 mg/dL Creatinine 1.0 0.5-1.3 mg/dL Glomerular Filtration Rate Calc 81 >90 mL/min Random Glucose 178 H 70-105 mg/dL Total Calcium 8.9 8.5-10.1 mg/dL Magnesium Level 1.90 1.80-2.40 mg/dL Total Bilirubin 0.5 0.2-1.0 mg/dL Aspartate Amino Transf (AST/SGOT) 36 10-37 U/L Alanine Aminotransferase (ALT/SGPT) 38 12-78 U/L Alkaline Phosphatase 77 50-136 U/L Total Protein 6.8 6.0-8.3 g/dL Albumin 3.2 L 3.5-5.0 g/dL Coagulation Labs: Test 10/04/24 05:46 Range/Units Activated Partial Thromboplast Time 77.7 H 26.3-35.5 SEC Diagnostics / Radiology: [Copy/Paste Echos/Imaging Report here] Impression and Plan: [NSTEMI Pulmonary vascular congestion Epigastric pain Leukocytosis Acute renal failure secondary to ATN from dehydration Electrolyte derangement (hyponatremia, hypokalemia) Hyperglycemia in setting of type 2 diabetes mellitus Leukocytosis without left band shift Chronic problem list: diabetes mellitus, hypertension, gastritis, former light smoker] Plan: [#NSTEMI -Trop 223--76527 -ECG with biphasic T wave v2 and v3, TWI v4-v-6 -2d echo normal LVEF and no valvular pathology -repeat ECG unchanged -heparin gtt, plavix 600 mg x1, asa 325 mg x1 -c/w aspirin 81 mg qd -nitro gtt -underwent LHC with Dr Lamb 09/29: diffusely calcific long 80% stenosis in the mid LAD, spontaneously reperfused prior to angiography with probable early washout with very high 2nd troponin of 47,283. Severe three-vessel coronary artery disease with 80% diagonal one stenosis, 70% proximal circumflex stenosis, 90% OM1 stenosis and chronically occluded mid RCA with PDA and PLV branches filling by [id number] collaterals. Evidence of old inferior wall [place] by EKG with associated occluded RCA consistent with silent old inferior wall [place]. - consulted CV surgery for CABG, pending 5 days post first plavix dose 10/30 Ashley Alexis MD ] ASHLEY ALEXIS MD Oct 04, 2024 09:51
--- NOTE | 2024-10-04 11:15 | PN ---
[facility] PROGRESS NOTE Date Patient Seen: Oct 04, 2024 Time of Visit: 11:14 Supervising Physician: Dr. Parr Primary Care Physician: Sheyla Cedeno @ [facility] Outpatient Specialists: Inpatient Consults: Cardiology PROBLEM LIST: Non STEMI-- troponin is 221 peaked to 47K, EKG No ST elevation- HEART SCORE FOR MACE 5 pts- moderate- risk of MACE 12-16%. S/P LHC with finding of MV CAD: mid LAD, diag, OM, and RCA occlusion on 09/29/24 Chest pain secondary to above Obstructed sleep apnea- witnessed here during hospital stay Acute renal failure secondary to ATN from dehydration Gastritis versus duodenal ulcer flare from spicy food ( patient likes to eat habanero daily) Hyponatremia Suspect obstructive sleep apnea Hyperglycemia in setting of type 2 diabetes mellitus Pulmonary vascular congestion- likely from acute CHF preserved EF Leukocytosis without left band shift Obesity BMI 32 History of diabetes mellitus, hypertension, gastritis, former light smoker INTERVAL HISTORY: Patient came to the hospital yesterday with substernal chest pain. Patient feels burning sensation in the chest 3 hours after he ate habanero. He admits eating spicy food on a daily basis. Patient has history of gastritis not on any PPI. Patient denies any history of cardiac problem other than hypertension. He has seen Dr. Gotti as outpatient for cardiac clearance. His troponin was 220 when he came in and we are trending this. We will obtain EKG. At this time silvia hamilton is on heparin drip per ACS protocol. Aspirin and statin has been started. Obtain Cardiology clearance. Check BNP. Echocardiogram is pending. In the meantime, likely this gastric burning was from gastritis versus duodenal ulcer. We will start patient with GI cocktail. We will start him also on Carafate. 09/30 patient had remarkable troponin elevation up to 47 K yesterday from 220. This morning patient is upgraded to ICU secondary to persistent chest pain, he was started on nitroglycerin drip. Patient had undergone a left heart catheterization yesterday with finding of multivessel coronary artery disease, pending CV surgery recommendations for coronary artery bypass graft surgery. Patient remains on heparin drip for ACS. Continue with p.r.n. pain medication. bowel regimen. In the meantime patient is NPO pending CV surgery recommendation. 10/01 patient is awake alert and oriented x3 no acute chest pain but remains on nitroglycerin drip. Patient is was on heparin drip. Vital signs blood pressure 119/68 pulse is 87. WBC is 11 this is down from 11.3 and chemistry is sodium 131 this is down from 133 yesterday. Creatinine is 1.1 this is stable. Glucose 127. Magnesium is 1.[address] electrolyte protocol. Pending CABG next week. 10/02 patient is awake alert oriented x3 no chest pain at this time. Patient remains on nitroglycerin drip titration. According to in tartrate for chest pain. This morning lab is unremarkable. Blood pressure 118/68 heart rate is 89. T-max is 98.4. Echocardiogram with LVEF of 35%. Patient is on aspirin and statin already. Consider beta-deb. Diuretic as needed. Patient is reporte d to have been hypoxic at night at sleep time. Patient reported that he has sleep apnea but never get tested. We will start patient on low CPAP at night with 8 cm Hg. We will need outpatient sleep apnea study. Patient is pending CV surgery for CABG. 10/03 patient is awake alert oriented x3 , no acute distress. Patient was tolerating CPAP overnight for 2 hours. Continued at nighttime. At this time, we can teach him how to use incentive spirometry. He remains on 2 L nasal cannula with sats 99%. Continue to wean down as tolerated. He has holiday lab this morning , we can check lab tomorrow morning. Otherwise continue with ni troglycerin drip and heparin drip. Patient has been started on beta-deb. 10/04 patient is awake alert oriented x3, no acute distress, conversing with family, vital signs blood pressure 117/71 map is 86 heart rate is 77. Respiratory rate is 18. He is on 2 L nasal cannula with sats 100%. He was able to be on CPAP for 5 hours overnight. Chemistry sodium 134 potassium 4.2 chlo ride 100 bicarb 26 BUN 12 creatinine is 1.0. Albumin is 3.2. Patient has been on heparin drip for ACS and nitroglycerin drip for chest pain. Continue ICU care given being on NTG drip. Continue to follow recommendation from CV team for CABG tomorrow. REVIEW OF SYSTEMS: 12 point ROS reviewed with patient. Pertinent positives mentioned above. Otherwise negative. PHYSICAL EXAM: GENERAL: Alert, weak, awake oriented x 3 HEENT: EOMI, Sclera non icteric, moist mucosa NECK: Supple, no JVD, trachea midline LUNGS: Clear breath sounds bilaterally. No wheezes HEART: Regular rate and rhythm. Normal S1 and S2, without murmurs ABD: Abdomen soft, nontender. Bowel sounds present EXT: No clubbing cyanosis or edema NEURO: Alert and oriented X3, follows commands Vital Signs (last 8hr) Date Time Temp Pulse Resp B/P (MAP) Pulse Ox O2 Delivery O2 Flow Rate FiO2 10/04/24 08:10 100 Nasal Cannula* 2 28 10/04/24 07:48 77 117/71 (86) 100 10/04/24 07:18 98.4 74 111/68 (82) 100 10/04/24 06:48 73 109/63 (78) 100 10/04/24 06:40 97 18 N/Cannula Low lpm 2.0 10/04/24 06:18 74 20 120/59 100 Nasal Cannula 2.0 10/04/24 06:15 84 100 10/04/24 06:00 75 100 10/04/24 05:45 74 100 10/04/24 05:30 73 100 10/04/24 05:18 71 20 114/63 100 Nasal Cannula 2.0 10/04/24 05:15 77 100 10/04/24 05:00 77 79 10/04/24 04:49 74 20 103/59 100 CPAP 40 10/04/24 04:45 68 100 10/04/24 04:30 69 100 10/04/24 04:19 98.1 67 20 109/60 100 CPAP 40 10/04/24 04:15 68 100 10/04/24 04:00 68 100 10/04/24 03:50 94 CPAP+ 5 40 10/04/24 03:48 71 20 105/69 97 CPAP 40 10/04/24 03:45 71 100 10/04/24 03:30 70 100 10/04/24 03:19 68 20 94/45 100 CPAP 10/04/24 03:15 66 100 LABS: Hematology Labs: Test 10/04/24 05:46 Range/Units White Blood Count 9.8 4.8-10.8 K/uL Red Blood Count 4.45 L 4.50-6.20 MIL/uL Hemoglobin 14.2 14.0-18.0 g/dL Hematocrit 42.2 42-54 % Mean Corpuscular Volume 94.8 79-99 fL Mean Corpuscular Hemoglobin 31.9 27.0-33.0 pg Mean Corpuscular Hemoglobin Concent 33.6 32.0-36.0 g/dL Red Cell Distribution Width 12.1 11.0-15.5 % Platelet Count 198 130-400 K/uL Mean Platelet Volume 10.5 7.5-10.5 fL Immature Granulocyte % (Auto) 0.3 0-1 % Neutrophils (%) (Auto) 64.3 40.0-77.0 % Lymphocytes (%) (Auto) 20.6 L 21.0-51.0 % Monocytes (%) (Auto) 10.6 3.0-13.0 % Eosinophils (%) (Auto) 3.7 0.0-8.0 % Basophils (%) (Auto) 0.5 0.0-5.0 % Neutrophils # (Auto) 6.3 1.8-7.7 K/uL Lymphocytes # (Auto) 2.0 1.0-4.8 K/uL Monocytes # (Auto) 1.0 0.1-1.0 K/uL Eosinophils # (Auto) 0.36 0.00-0.70 K/uL Basophils # (Auto) 0.05 0.00-0.20 K/uL Absolute Immature Granulocyte (auto 0.03 0-1 K/uL Nucleated Red Blood Cells 0.0 0.0-0.19 % Chemistry Labs: Test 10/04/24 05:46 Range/Units Sodium Level 134 L 136-145 mmol/L Potassium Level 4.2 3.5-5.1 mmol/L Chloride Level 100 L 101-111 mmol/L Carbon Dioxide Level 26 21-32 mmol/L Blood Urea Nitrogen 12 7-18 mg/dL Creatinine 1.0 0.5-1.3 mg/dL Glomerular Filtration Rate Calc 81 >90 mL/min Random Glucose 178 H 70-105 mg/dL Total Calcium 8.9 8.5-10.1 mg/dL Magnesium Level 1.90 1.80-2.40 mg/dL Total Bilirubin 0.5 0.2-1.0 mg/dL Aspartate Amino Transf (AST/SGOT) 36 10-37 U/L Alanine Aminotransferase (ALT/SGPT) 38 12-78 U/L Alkaline Phosphatase 77 50-136 U/L Total Protein 6.8 6.0-8.3 g/dL Albumin 3.2 L 3.5-5.0 g/dL Coagulation Labs: Test 10/04/24 05:46 Range/Units Activated Partial Thromboplast Time 77.7 H 26.3-35.5 SEC DIAGNOSTICS / RADIOLOGY RESULTS: [ ] PLAN NEURO: Minimize central acting medications as possible. Fall Precautions. Well lighted room through the day and minimize interruptions through the night to prevent acute delirium. PULMONARY: Supplemental 02 as needed Titrate Fio2 to keep Spo2 > or = 90% DuoNebs and CPT as needed IS hourly while awake for pulmonary hygiene Out of bed to chair as tolerated VAP Bundle CARDIOVASCULAR: Follow hemodynamics. Titrate vasopressor to keep MAP >65 or systolic blood pressure >95mmHg CV surgery has been consulted per cardiology recommendations DRIPS: NTG Heparin LINES: PIV GI & NUTRITION: Continue nutritional support Aspirations precautions Prokinetic agents and laxatives as needed KIDNEYS & ELECTROLYTES: Strict monitoring of intake and output Daily weights Avoid nephrotoxic agents Monitor electrolytes and replace as needed Goal urine output of 30mL/hr or 0.5mL/kg/hr ENDOCRINE: Maintain blood glucose between 100-180 at all times. Insulin sliding scale for blood glucose management INFECTIOUS DISEASE: Trend temperature. Haddad-culture if febrile. Micro: NA Antibiotics: NA HEMATOLOGY & COAGULATION: Monitor H&H. Keep Hgb > 7 Transfuse 1 unit of PRBC for Hgb < 7 Transfuse 1 pack of platelets of platelets < 20, 000 Watch for any signs and symptoms of bleeding SKIN: Pressure ulcer prevention per facility protocol Rehab: PT/OT Prophylaxis: GI: Protonix DVT: Heparin Code Status: Full Resuscitation Disposition: ICU Other: Total patient care time exceeds 35 minutes excluding all procedures. Case was discussed and seen with my supervising physician. The above plan was formulated and agreed upon. ORION ARNOLD [facility] Oct 04, 2024 11:15
[2024-10-04] MEDS ORDERED: ceFAZolin SODIUM 2 GM VIAL IVP PRN (11:30)
[2024-10-04] MEDS: INSULIN humuLIN R 100 UNIT/ML 3ML SQ SCH (11:30)
[2024-10-04 12:42] LABS: ABG BASE EXCESS -0.6 mmol/L (-2.0-3.0); ABG HCO3 23.6 mmol/L (21.0-28.0); ABG OXYGEN SATURATION 93.7 % (94.0-98.0); ABG PCO2 38 mmHg (35-48); ABG PH 7.414 (7.350-7.450); DEVICE COMMENT LR SYLVIA; HHb 6.2; PO2, ARTERIAL BG 70.2 mmHg (83.0-108.0); VENT MODE, BG RA (ROOM AIR)
[2024-10-05] VITALS (96 sets, daily range): BP systolic 88–145; BP diastolic 47–112; PULSE 61–112; RESP 10–56; TEMP 96.8–98.4; O2SAT 98–100
[2024-10-05 04:52] LABS: BASOPHILS # (AUTO) 0.07 K/uL (0.00-0.20); BASOPHILS % (AUTO) 0.8 % (0.0-5.0); EOSINOPHILS # (AUTO) 0.36 K/uL (0.00-0.70); EOSINOPHILS % (AUTO) 4.1 % (0.0-8.0); HEMATOCRIT 41.5 % (42-54); IMMATURE GRANULOCYTE ABSOLUTE 0.03 K/uL (0-1); LYMPHOCYTES # (AUTO) 1.9 K/uL (1.0-4.8); LYMPHOCYTES % (AUTO) 21.5 % (21.0-51.0); MEAN CORPUSCULAR HEMOGLOBIN 31.8 pg (27.0-33.0); MEAN CORPUSCULAR HGB CONC 33.5 g/dL (32.0-36.0); MONOCYTES # (AUTO) 0.9 K/uL (0.1-1.0); MONOCYTES % (AUTO) 10.6 % (3.0-13.0); NEUTROPHILS # (AUTO) 5.5 K/uL (1.8-7.7); NEUTROPHILS % (AUTO) 62.7 % (40.0-77.0); PLATELET COUNT (AUTO) 203 K/uL (130-400); RED BLOOD CELL COUNT(AUTO) 4.37 MIL/uL (4.50-6.20); RED CELL DISTRIBUTION WIDTH 12.1 % (11.0-15.5); WHITE BLOOD COUNT (AUTO) 8.8 K/uL (4.8-10.8)
[2024-10-05 05:06] LABS: INR 1.01 (0.85-1.15); PROTHROMBIN TIME 10.9 SEC (9.6-11.6)
[2024-10-05 05:08] LABS: PARTIAL THROMBOPLASTIN TIME 37.1 SEC (26.3-35.5)
[2024-10-05 05:15] LABS: ALBUMIN 3.2 g/dL (3.5-5.0); BILIRUBIN,TOTAL 0.6 mg/dL (0.2-1.0); CREATININE 0.9 mg/dL (0.5-1.3); MAGNESIUM 1.9 mg/dL (1.80-2.40); POTASSIUM 4.1 mmol/L (3.5-5.1); TOTAL PROTEIN, SERUM 6.9 g/dL (6.0-8.3)
--- NOTE | 2024-10-05 05:15 | EKG ---
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
[2024-10-05 05:56] LABS: B-TYPE NATRIURETIC PEPTIDE 303 pg/mL (0-100)
[2024-10-05] MEDS ORDERED: EPINEPHrine PF 1MG (1:1,000) 10 MG in 0.9% NACL 250ML 240 ML IV PRN ×2 (07:00→09:00)
[2024-10-05] MEDS ORDERED: aminoCAProic ACID 5,000MG VIAL 15,000 MG in 0.9% NACL 500ML IV.SOLN 420 ML IV PRN (07:00)
[2024-10-05] MEDS ORDERED: NOREPINEPHRIN 8MG/250ML NS 250 ML IV PRN (07:00)
[2024-10-05] MEDS ORDERED: ceFAZolin SODIUM 1 GM VIAL ONE ×2 (07:07→07:10)
[2024-10-05] MEDS ORDERED: PAPAVERINE HCL 30 MG/ML 2ML VIAL ONE (07:08)
[2024-10-05] MEDS ORDERED: HEParin-NS 1,000 UNIT/500 ML 500 ML IV ONE (07:08)
[2024-10-05] MEDS ORDERED: NITROGLYCERIN 50MG/D5W 250ML 1 BOT ONE (07:09)
--- NOTE | 2024-10-05 08:07 | PN ---
[facility] CARDIOLOGY PROGRESS NOTE Date Patient Seen: Oct 05, 2024 Time of Visit: 08:06 Interval History: [ No events overnight, pending CABG. ] Physical Examination: GENERAL: [No acute distress.] HEAD: [Normal with no signs of head trauma.] EYES: [PERRLA, EOMI, conjunctiva and sclera normal.] ENT: [Hearing grossly intact, normal oropharynx.] NECK: [Supple without JVD. There is no tenderness, lymphadenopathy, or masses. No thyromegaly. Normal carotid upstrokes without bruits.] LUNGS: [Clear breath sounds bilaterally. There are right basilar rales one third of the way up the chest. No wheezes, or rhonchi.] HEART: [Normal rate and rhythm. Normal S1 and S2 without mumurs, gallop or rub.] VASC: [Peripheral pulses +2 bilaterally.] ABD: [Bowel sounds normal, soft, nontender, no masses, no organomegaly. No audible bruits.] : [Not examined] LYMPH: [No lymphadenopathy noted.] EXT: [No clubbing, cyanosis or edema.] SKIN: [No rashes or lesions noted.] NEURO: [Awake, alert, and oriented x3. No focal sensory or strength deficits noted.] Laboratory: [ ] Hematology Labs: Test 10/05/24 04:30 Range/Units White Blood Count 8.8 4.8-10.8 K/uL Red Blood Count 4.37 L 4.50-6.20 MIL/uL Hemoglobin 13.9 L 14.0-18.0 g/dL Hematocrit 41.5 L 42-54 % Mean Corpuscular Volume 95.0 79-99 fL Mean Corpuscular Hemoglobin 31.8 27.0-33.0 pg Mean Corpuscular Hemoglobin Concent 33.5 32.0-36.0 g/dL Red Cell Distribution Width 12.1 11.0-15.5 % Platelet Count 203 130-400 K/uL Mean Platelet Volume 10.7 H 7.5-10.5 fL Immature Granulocyte % (Auto) 0.3 0-1 % Neutrophils (%) (Auto) 62.7 40.0-77.0 % Lymphocytes (%) (Auto) 21.5 21.0-51.0 % Monocytes (%) (Auto) 10.6 3.0-13.0 % Eosinophils (%) (Auto) 4.1 0.0-8.0 % Basophils (%) (Auto) 0.8 0.0-5.0 % Neutrophils # (Auto) 5.5 1.8-7.7 K/uL Lymphocytes # (Auto) 1.9 1.0-4.8 K/uL Monocytes # (Auto) 0.9 0.1-1.0 K/uL Eosinophils # (Auto) 0.36 0.00-0.70 K/uL Basophils # (Auto) 0.07 0.00-0.20 K/uL Absolute Immature Granulocyte (auto 0.03 0-1 K/uL Nucleated Red Blood Cells 0.0 0.0-0.19 % Chemistry Labs: Test 10/05/24 05:52 10/05/24 04:30 Range/Units Whole Blood Glucose 124 H 70-110 MG/DL Sodium Level 133 L 136-145 mmol/L Potassium Level 4.1 3.5-5.1 mmol/L Chloride Level 99 L 101-111 mmol/L Carbon Dioxide Level 27 21-32 mmol/L Blood Urea Nitrogen 12 7-18 mg/dL Creatinine 0.9 0.5-1.3 mg/dL Glomerular Filtration Rate Calc 92 >90 mL/min Random Glucose 167 H 70-105 mg/dL Total Calcium 9.0 8.5-10.1 mg/dL Magnesium Level 1.90 1.80-2.40 mg/dL Total Bilirubin 0.6 0.2-1.0 mg/dL Aspartate Amino Transf (AST/SGOT) 29 10-37 U/L Alanine Aminotransferase (ALT/SGPT) 38 12-78 U/L Alkaline Phosphatase 81 50-136 U/L B-Type Natriuretic Peptide 303 H 0-100 pg/mL Total Protein 6.9 6.0-8.3 g/dL Albumin 3.2 L 3.5-5.0 g/dL Coagulation Labs: Test 10/05/24 04:30 Range/Units Prothrombin Time 10.9 9.6-11.6 SEC Prothromb Time International Ratio 1.01 0.85-1.15 Activated Partial Thromboplast Time 37.1 #H 26.3-35.5 SEC Diagnostics / Radiology: [Copy/Paste Echos/Imaging Report here] Impression and Plan: [NSTEMI Pulmonary vascular congestion Epigastric pain Leukocytosis Acute renal failure secondary to ATN from dehydration Electrolyte derangement (hyponatremia, hypokalemia) Hyperglycemia in setting of type 2 diabetes mellitus Leukocytosis without left band shift Chronic problem list: diabetes mellitus, hypertension, gastritis, former light smoker] Plan: [#NSTEMI -Trop [id number] -ECG with biphasic T wave v2 and v3, TWI v4-v-6 -2d echo normal LVEF and no valvular pathology -repeat ECG unchanged -heparin gtt, plavix 600 mg x1, asa 325 mg x1 -c/w aspirin 81 mg qd -nitro gtt -underwent LHC with Dr Lamb 09/29: diffusely calcific long 80% stenosis in the mid LAD, spontaneously reperfused prior to angiography with probable early washout with very high 2nd troponin of 47,283. Severe three-vessel coronary artery disease with 80% diagonal one stenosis, 70% proximal circumflex stenosis, 90% OM1 stenosis and chronically occluded mid RCA with PDA and PLV branches filling by [id number] collaterals. 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 - consulted CV surgery for CABG, pending 5 days post first plavix dose 10/30 Ashley Alexis MD ] ASHLEY ALEXIS MD Oct 05, 2024 08:07
[2024-10-05] MEDS ORDERED: SODIUM BICARB 50MEQ 50ML VIAL 200 ML ONE (08:10)
[2024-10-05] MEDS ORDERED: NOREPINEPHRINE BITARTRATE 1 MG/1 ML ML IV ONE (08:10)
[2024-10-05] MEDS ORDERED: HEParin 10,000 UNIT/10ML (1,000 UNIT/ML) VIAL ONE ×2 (08:10→08:48)
[2024-10-05] MEDS ORDERED: EPINEPHrine PF 1MG (1:1,000) 1 MG/ML AMP ONE (08:10)
[2024-10-05] MEDS ORDERED: PROTamine SULFate 10 MG/ML 25ML VIAL IV ONE (08:10)
[2024-10-05] MEDS ORDERED: LIDOCAINE PF 100MG/5ML (2%) SYRINGE 5ML ONE (08:10)
[2024-10-05] MEDS ORDERED: rocuRONium bROMide 10MG/1ML 5ML VL ONE (08:11)
[2024-10-05] MEDS ORDERED: MIDAZOLAM HCL 1 MG/ML 2ML VIAL ONE ×2 (08:11→10:38)
[2024-10-05] MEDS ORDERED: FENTanyl CITRate PF 50 MCG/1 ML 20ML VIAL IJ ONE (08:11)
[2024-10-05] MEDS ORDERED: GLYCOPYRROLATE 0.2 MG/ML 5 ML VIAL ONE (08:11)
[2024-10-05] MEDS ORDERED: proPOFol 10 MG/ML 20ML VIAL IV ONE (08:11)
[2024-10-05] MEDS ORDERED: ketaMINE 50MG/ML SYRINGE 50 MG/ML DISP.SYRIN ONE ×2 (08:12→10:33)
[2024-10-05] MEDS: ceFAZolin SODIUM 2 GM VIAL ONE (08:12)
[2024-10-05] MEDS: ceFAZolin SODIUM 2 GM VIAL IVPB ONE (08:30)
[2024-10-05 08:47] LABS: ABG BASE EXCESS 2.3 mmol/L (-2.0-3.0); ABG HCO3 26.3 mmol/L (21.0-28.0); ABG OXYGEN SATURATION 99.3 % (94.0-98.0); ABG PCO2 39 mmHg (35-48); ABG PH 7.448 (7.350-7.450); CARBON MONOXIDE 0.4 % (0.5-1.5); DEVICE COMMENT 1; HHb 0.7
[2024-10-05] MEDS ORDERED: phenylEPHRINE HCL 10 MG/ML 1ML VIAL IV ONE (08:47)
[2024-10-05] MEDS ORDERED: proPOFol 1000 MG/100 ML 100 ML IV PRN (09:00)
[2024-10-05] MEDS ORDERED: ondanSETRON 4MG INJ IV PRN (09:00)
[2024-10-05] MEDS ORDERED: GLUCAGON 1MG KIT 1 MG ML IM PRN (09:00)
[2024-10-05] MEDS ORDERED: NITROGLYCERIN 50MG/D5W 250ML 250 BOT IV SCH (09:00)
[2024-10-05] MEDS ORDERED: MAGNESIUM HYDROXIDE 30 ML/UDCUP PO PRN (09:00)
[2024-10-05] MEDS ORDERED: dexmedeTOMIDine 400MCG/NS100ML IV SCH (09:00)
[2024-10-05] MEDS ORDERED: LACTULOSE 20 GM/30 ML UDCUP PO PRN (09:00)
[2024-10-05] MEDS ORDERED: aminoCAProic ACID 5,000MG VIAL 15,000 MG in 0.9% NACL 250ML 250 ML IV SCH (09:00)
[2024-10-05] MEDS ORDERED: 0.9%NACL 10ML VIAL IVP PRN (09:00)
[2024-10-05] MEDS ORDERED: NOREPINEPHRINE BITARTRATE 8 MG in DEXTROSE 5%-WATER 250 ML IV PRN (09:00)
[2024-10-05] MEDS ORDERED: DEXTROSE 50%-WATER 50 ML DISP.SYRIN IV PRN (09:00)
[2024-10-05] MEDS ORDERED: 0.9% NACL 500ML IV.SOLN 500 ML IV SCH (09:00)
[2024-10-05] MEDS ORDERED: morPHINE 2 MG SYG IV PRN ×2 (09:00)
[2024-10-05] MEDS ORDERED: acetaMINOPHEN 325 MG TAB PO PRN (09:00)
[2024-10-05] MEDS ORDERED: acetaMINOPHEN 650 MG SUPPOSITORY RC PRN (09:00)
[2024-10-05] MEDS ORDERED: poTASSium PHOS 15 mMOL+NS250ML 250 ML IV PRN (09:00)
[2024-10-05] MEDS ORDERED: NOREPINEPHRIN 8MG/250ML NS 250 ML IV SCH (09:30)
--- NOTE | 2024-10-05 10:00 | HMCIMG ---
CHEST 1VW HISTORY: Preop COMPARISON: 09/28/2024 FINDINGS: A frontal projection of the chest was obtained. No acute pulmonary infiltrates is seen. The heart is borderline enlarged. Prominent interstitial markings are seen. No evidence of aortic calcification is seen. IMPRESSION: 1. No acute pulmonary infiltrate is seen.
[2024-10-05 10:24] LABS: ABG BASE EXCESS -4.9 mmol/L (-2.0-3.0); ABG HCO3 19.9 mmol/L (21.0-28.0); ABG OXYGEN SATURATION 99.1 % (94.0-98.0); ABG PCO2 36 mmHg (35-48); CARBON MONOXIDE 0.2 % (0.5-1.5); DEVICE COMMENT 2; HHb 0.9; PO2, ARTERIAL BG 343.2 mmHg (83.0-108.0)
[2024-10-05 10:58] LABS: ABG BASE EXCESS -1.9 mmol/L (-2.0-3.0); ABG HCO3 23.2 mmol/L (21.0-28.0); ABG OXYGEN SATURATION 98.6 % (94.0-98.0); ABG PCO2 41 mmHg (35-48); ABG PH 7.374 (7.350-7.450); CARBON MONOXIDE 0.6 % (0.5-1.5); DEVICE COMMENT RN JUDITH; HHb 1.4; PO2, ARTERIAL BG 252.1 mmHg (83.0-108.0); VENT MODE, BG SIMV (ROOM AIR)
[2024-10-05] MEDS: 0.9%NACL 1000ML 1,000 ML IV ONE (11:00)
--- NOTE | 2024-10-05 11:05 | EKG ---
[facility] Test Date: 2024-10-05 Test Time: 11:03:48 Pat Name: BAR STEVE Department: 2CV Room: 213 1 Gender: M General Doc: Guanako BENTON : 1955 Requested By: ELIEZER FIERRO Order Number: [id number] Reading MD: Hipolito Bradford Measurements Intervals [place] Rate: 89 P: 43 [place]: 168 QRS: 54 QRSD: 88 T: 102 QT: 432 QTc: 525 Interpretive Statements Sinus rhythm with fusion complexes T wave abnormality, consider anterior ischemia Prolonged QT Compared to ECG 10/05/2024 05:14:27 Fusion complex(es) now present T-wave abnormality now present Possible ischemia now present Prolonged QT interval now present Ventricular premature complex(es) no longer present Myocardial infarct finding no longer present Electronically Signed On 10-05-2024 13:10:47 [employer]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
[2024-10-05] MEDS: 0.9%NACL 1000ML 1,000 ML IV SCH (11:13)
[2024-10-05] MEDS: ALBUMIN (HUMAN) 5% 250 ML IV PRN (11:13)
[2024-10-05] MEDS: SODIUM BICARB 50MEQ 50ML VIAL IV PRN (11:13)
[2024-10-05 11:19] LABS: MAGNESIUM 1.7 mg/dL (1.80-2.40); PHOSPHORUS 4.7 mg/dL (2.5-4.9); POTASSIUM 4.2 mmol/L (3.5-5.1)
[2024-10-05 11:21] LABS: INR 1.11 (0.85-1.15); PROTHROMBIN TIME 11.9 SEC (9.6-11.6)
[2024-10-05 11:22] LABS: PARTIAL THROMBOPLASTIN TIME 30.8 SEC (26.3-35.5)
[2024-10-05 11:37] LABS: HEMATOCRIT 36.3 % (42-54); MEAN CORPUSCULAR HGB CONC 33.9 g/dL (32.0-36.0); MEAN CORPUSCULAR VOLUME 94.5 fL (79-99); RED BLOOD CELL COUNT(AUTO) 3.84 MIL/uL (4.50-6.20); WHITE BLOOD COUNT (AUTO) 23.3 K/uL (4.8-10.8)
[2024-10-05] MEDS: MAGNESIUM 2GM PREMIX 50ML 50 ML IV PRN (11:48)
[2024-10-05 11:53] LABS: ABG BASE EXCESS -0.3 mmol/L (-2.0-3.0); ABG HCO3 24.7 mmol/L (21.0-28.0); ABG OXYGEN SATURATION 98.7 % (94.0-98.0); ABG PCO2 42 mmHg (35-48); ABG PH 7.389 (7.350-7.450); CARBON MONOXIDE 0.6 % (0.5-1.5); DEVICE COMMENT RN JUDITH; HHb 1.3; PO2, ARTERIAL BG 291.7 mmHg (83.0-108.0); VENT MODE, BG SIMV (ROOM AIR)
[2024-10-05] MEDS: FAMOTIDINE 20MG VIAL IV SCH (11:58)
[2024-10-05] MEDS: ASPIRIN 81MG CHEW TAB NG ONE (11:58)
[2024-10-05] MEDS: CALCIUM GLUC 1GM 1 GM in 0.9%NACL 50ML 50 ML IV PRN (12:02)
--- NOTE | 2024-10-05 12:20 | HMCIMG ---
CHEST 1VW HISTORY: Post CABG COMPARISON: None FINDINGS: A frontal projection of the chest was obtained. Mild bilateral pulmonary infiltrates are seen may be related to mild pulmonary vascular congestion with possible superimposed pneumonitis. Poststernotomy changes are seen. The heart is enlarged. Degenerative changes of the thoracolumbar spine are present. All the lines and tubes are again seen in place. No evidence of aortic calcification is seen. IMPRESSION: 1. Mild bilateral pulmonary infiltrates are seen may be related to mild pulmonary vascular congestion with possible superimposed pneumonitis.
[2024-10-05] MEDS: acetaMINOPHEN 1,000 MG/100 ML VIAL IV SCH (13:06)
[2024-10-05 13:07] LABS: ABG BASE EXCESS -2.4 mmol/L (-2.0-3.0); ABG HCO3 23.1 mmol/L (21.0-28.0); ABG OXYGEN SATURATION 97.3 % (94.0-98.0); ABG PCO2 43 mmHg (35-48); ABG PH 7.353 (7.350-7.450); CARBON MONOXIDE 0.7 % (0.5-1.5); DEVICE COMMENT RN JUDITH; HHb 2.7; PO2, ARTERIAL BG 113.6 mmHg (83.0-108.0); VENT MODE, BG SIMV (ROOM AIR)
[2024-10-05] MEDS: ceFAZolin SODIUM 2 GM VIAL IVPB SCH (13:39)
[2024-10-05 14:15] LABS: ABG HCO3 26.4 mmol/L (21.0-28.0); ABG OXYGEN SATURATION 97.6 % (94.0-98.0); ABG PCO2 45 mmHg (35-48); ABG PH 7.386 (7.350-7.450); CARBON MONOXIDE 0.6 % (0.5-1.5); DEVICE COMMENT RN JUDITH; HHb 2.4; VENT MODE, BG SIMV (ROOM AIR)
[2024-10-05 14:17] LABS: ABG BASE EXCESS 1.9 mmol/L (-2.0-3.0); ABG HCO3 27.2 mmol/L (21.0-28.0); ABG OXYGEN SATURATION 97.7 % (94.0-98.0); ABG PCO2 46 mmHg (35-48); ABG PH 7.394 (7.350-7.450); CARBON MONOXIDE 0.7 % (0.5-1.5); DEVICE COMMENT RN JUDKT; HHb 2.3; PO2, ARTERIAL BG 126.9 mmHg (83.0-108.0); VENT MODE, BG SIMV (ROOM AIR)
[2024-10-05 15:14] LABS: ABG BASE EXCESS 1.1 mmol/L (-2.0-3.0); ABG HCO3 26.2 mmol/L (21.0-28.0); ABG OXYGEN SATURATION 96.9 % (94.0-98.0); ABG PCO2 44 mmHg (35-48); ABG PH 7.395 (7.350-7.450); CARBON MONOXIDE 0.4 % (0.5-1.5); DEVICE COMMENT RNJUDITH; HHb 3.1; VENT MODE, BG SIMV (ROOM AIR)
[2024-10-05 15:36] LABS: MAGNESIUM 2.2 mg/dL (1.80-2.40); POTASSIUM 3.8 mmol/L (3.5-5.1)
[2024-10-05] MEDS: PoTASSium chloRIDE 20MEQ/100ML 100 ML IV PRN (15:40)
[2024-10-05 16:13] LABS: ABG BASE EXCESS 1.2 mmol/L (-2.0-3.0); ABG HCO3 26.8 mmol/L (21.0-28.0); ABG OXYGEN SATURATION 97.3 % (94.0-98.0); ABG PCO2 46 mmHg (35-48); CARBON MONOXIDE 0.7 % (0.5-1.5); DEVICE COMMENT RN JUDITH; HHb 2.7; VENT MODE, BG SIMV (ROOM AIR)
--- NOTE | 2024-10-05 16:47 | PN ---
[facility] PROGRESS NOTE Date Patient Seen: Oct 05, 2024 Time of Visit: 16:43 Supervising Physician: Dr. Bocanegra Primary Care Physician: Sheyla Cedeno @ [facility] Outpatient Specialists: Inpatient Consults: Cardiology PROBLEM LIST: Non STEMI-- troponin is 221 peaked to 47K, EKG No ST elevation- HEART SCORE FOR MACE 5 pts- moderate- risk of MACE 12-16%. S/P LHC with finding of MV CAD: mid LAD, diag, OM, and RCA occlusion on 09/29/24 Chest pain secondary to above Obstructed sleep apnea- witnessed here during hospital stay Acute renal failure secondary to ATN from dehydration Gastritis versus duodenal ulcer flare from spicy food ( patient likes to eat habanero daily) Hyponatremia Suspect obstructive sleep apnea Hyperglycemia in setting of type 2 diabetes mellitus Pulmonary vascular congestion- likely from acute CHF preserved EF Leukocytosis without left band shift Obesity BMI 32 History of diabetes mellitus, hypertension, gastritis, former light smoker INTERVAL HISTORY: Patient came to the hospital yesterday with substernal chest pain. Patient feels burning sensation in the chest 3 hours after he ate habanero. He admits eating spicy food on a daily basis. Patient has history of gastritis not on any PPI. Patient denies any history of cardiac problem other than hypertension. He has seen Dr. Gotti as outpatient for cardiac clearance. His troponin was 220 when he came in and we are trending this. We will obtain EKG. At this time patient is on heparin drip per ACS protocol. Aspirin and statin has been started. Obtain Cardiology clearance. Check BNP. Echocardiogram is pending. In the meantime, likely this gastric burning was from gastritis versus duodenal ulcer. We will start patient with GI cocktail. We will start him also on Carafate. 09/30 patient had remarkable troponin elevation up to 47 K yesterday from 220. This morning patient is upgraded to ICU secondary to persistent chest pain, he was started on nitroglycerin drip. Patient had undergone a left heart catheterization yesterday with finding of multivessel coronary artery disease, pending CV surgery recommendations for coronary artery bypass graft surgery. Patient remains on heparin drip for ACS. Continue with p.r.n. pain medication. bowel regimen. In the meantime patient is NPO pending CV surgery recommendation. 10/01 patient is awake alert and oriented x3 no acute chest pain but remains on nitroglycerin drip. Patient is was on heparin drip. Vital signs blood pressure 119/68 pulse is 87. WBC is 11 this is down from 11.3 and chemistry is sodium 131 this is down from 133 yesterday. Creatinine is 1.1 this is stable. Glucose 127. Magnesium is 1.[address] electrolyte protocol. Pending CABG next week. 10/02 patient is awake alert oriented x3 no chest pain at this time. Patient remains on nitroglycerin drip titration. According to in tartrate for chest pain. This morning lab is unremarkable. Blood pressure 118/68 heart rate is 89. T-max is 98.4. Echocardiogram with LVEF of 35%. Patient is on aspirin and statin already. Consider beta-deb. Diuretic as needed. Patient is r eported to have been hypoxic at night at sleep time. Patient reported that he has sleep apnea but never get tested. We will start patient on low CPAP at night with 8 cm Hg. We will need outpatient sleep apnea study. Patient is pending CV surgery for CABG. 10/03 patient is awake alert oriented x3 , no acute distress. Patient was tolerating CPAP overnight for 2 hours. Continued at nighttime. At this time, we can teach him how to use incentive spirometry. He remains on 2 L nasal cannula with sats 99%. Continue to wean down as tolerated. He has holiday lab this morning , we can check lab tomorrow morning. Otherwise continue with nitroglycerin drip and heparin drip. Patient has been started on beta-deb. 10/04 patient is awake alert oriented x3, no acute distress, conversing with family, vital signs blood pressure 117/71 map is 86 heart rate is 77. Respiratory rate is 18. He is on 2 L nasal cannula with sats 100%. He was able to be on CPAP for 5 hours overnight. Chemistry sodium 134 potassium 4.2 chloride 100 bicarb 26 BUN 12 creatinine is 1.0. Albumin is 3.2. Patient has been on heparin drip for ACS and nitroglycerin drip for chest pain. Continue ICU care given being on NTG drip. Continue to follow recommendation from CV team for CABG tomorrow. 10/05 patient is status post CABG x2 today. He remains intubated on SIMV 10/650/5/50%. He is postanesthesia care very drowsy but following very simple commands. We are still in the fast track extubation plan. Otherwise, His vital signs is stable, supported with vasopressor of epinephrine and Levophed drip , at the moment he is hyperdynamic. Continue to wean down vasopressors as tolerated to keep map greater than 65. Patient also is on insulin drip post CABG per protocol. His ABG is 7.38 /46 /107/26 O2 sat is 96%. Chest tube x2 in place , [place] catheter in place. Right groin sheath in place. Continue to monitor input and output closely. Follow post CABG protocol. Lab and Chest xray in AM. REVIEW OF SYSTEMS: 12 point ROS reviewed with patient. Pertinent positives mentioned above. Otherwise negative. PHYSICAL EXAM: GENERAL: Alert, weak, awake oriented x 3 HEENT: EOMI, Sclera non icteric, moist mucosa NECK: Supple, no JVD, trachea midline LUNGS: Clear breath sounds bilaterally. No wheezes HEART: Regular rate and rhythm. Normal S1 and S2, without murmurs ABD: Abdomen soft, nontender. Bowel sounds present EXT: No clubbing cyanosis or edema NEURO: Alert and oriented X3, follows commands Vital Signs (last 8hr) Date Time Temp Pulse Resp B/P (MAP) Pulse Ox O2 Delivery O2 Flow Rate FiO2 10/05/24 16:15 96 13 123/70 (87) 100 127/59 (81) 10/05/24 16:00 40 10/05/24 16:00 100 Ventilator+ 40 10/05/24 16:00 98.4 101 13 117/60 (79) 100 123/58 (79) 10/05/24 15:45 100 12 117/68 (84) 100 122/57 (78) 10/05/24 15:30 97 11 116/71 (86) 100 130/60 (83) 10/05/24 15:15 98 11 118/66 (83) 100 127/58 (81) 10/05/24 15:00 102 11 123/61 (81) 100 119/59 (79) 10/05/24 14:45 100 11 118/64 (82) 100 118/55 (76) 10/05/24 14:30 100 11 115/64 (81) 100 121/56 (77) 10/05/24 14:18 102 40 10/05/24 14:15 100 11 113/64 (80) 100 122/57 (78) 10/05/24 14:00 101 10 115/66 (82) 100 119/60 (79) 10/05/24 13:45 103 10 116/72 (87) 100 125/61 (82) 10/05/24 13:30 101 10 112/68 (83) 100 126/58 (80) 10/05/24 13:15 102 10 121/65 (83) 100 131/58 (82) 10/05/24 13:00 95 10 101/66 (78) 100 123/60 (81) 10/05/24 12:45 98 12 111/61 (78) 100 118/58 (78) 10/05/24 12:30 99 12 112/61 (78) 100 123/60 (81) 10/05/24 12:15 97 12 111/47 (68) 100 122/57 (78) 10/05/24 12:00 97.0 10/05/24 12:00 97.0 97 13 110/70 (83) 100 135/63 (87) 10/05/24 11:45 98 12 106/64 (78) 100 119/61 (80) 10/05/24 11:30 96 12 125/75 (92) 100 143/68 (93) 10/05/24 11:15 97 12 125/74 (91) 100 143/68 (93) 10/05/24 11:04 91 100 10/05/24 11:00 94 12 107/68 (81) 100 123/60 (81) 10/05/24 11:00 100 Ventilator+ 100 10/05/24 11:00 100 10/05/24 10:45 96.8 87 12 88/54 (65) 100 100/48 (65) LABS: Hematology Labs: Test 10/05/24 10:57 10/05/24 04:30 Range/Units White Blood Count 23.3 #H 4.8-10.8 K/uL Red Blood Count 3.84 L 4.50-6.20 MIL/uL Hemoglobin 12.3 L 14.0-18.0 g/dL Hematocrit 36.3 L 42-54 % Mean Corpuscular Volume 94.5 79-99 fL Mean Corpuscular Hemoglobin 32.0 27.0-33.0 pg Mean Corpuscular Hemoglobin Concent 33.9 32.0-36.0 g/dL Red Cell Distribution Width 12.0 11.0-15.5 % Platelet Count 184 130-400 K/uL Mean Platelet Volume 11.1 H 7.5-10.5 fL Nucleated Red Blood Cells 0.0 0.0-0.19 % Immature Granulocyte % (Auto) 0.3 0-1 % Neutrophils (%) (Auto) 62.7 40.0-77.0 % Lymphocytes (%) (Auto) 21.5 21.0-51.0 % Monocytes (%) (Auto) 10.6 3.0-13.0 % Eosinophils (%) (Auto) 4.1 0.0-8.0 % Basophils (%) (Auto) 0.8 0.0-5.0 % Neutrophils # (Auto) 5.5 1.8-7.7 K/uL Lymphocytes # (Auto) 1.9 1.0-4.8 K/uL Monocytes # (Auto) 0.9 0.1-1.0 K/uL Eosinophils # (Auto) 0.36 0.00-0.70 K/uL Basophils # (Auto) 0.07 0.00-0.20 K/uL Absolute Immature Granulocyte (auto 0.03 0-1 K/uL Chemistry Labs: Test 10/05/24 15:18 10/05/24 10:57 10/05/24 05:52 10/05/24 04:30 Range/Units Potassium Level 3.8 3.5-5.1 mmol/L Magnesium Level 2.20 1.80-2.40 mg/dL Sodium Level 138 136-145 mmol/L Chloride Level 104 101-111 mmol/L Carbon Dioxide Level 28 21-32 mmol/L Blood Urea Nitrogen 12 7-18 mg/dL Creatinine 1.0 0.5-1.3 mg/dL Glomerular Filtration Rate Calc 81 >90 mL/min Random Glucose 175 H 70-105 mg/dL Total Calcium 8.7 8.5-10.1 mg/dL Phosphorus Level 4.7 2.5-4.9 mg/dL Whole Blood Glucose 124 H 70-110 MG/DL Total Bilirubin 0.6 0.2-1.0 mg/dL Aspartate Amino Transf (AST/SGOT) 29 10-37 U/L Alanine Aminotransferase (ALT/SGPT) 38 12-78 U/L Alkaline Phosphatase 81 50-136 U/L B-Type Natriuretic Peptide 303 H 0-100 pg/mL Total Protein 6.9 6.0-8.3 g/dL Albumin 3.2 L 3.5-5.0 g/dL Coagulation Labs: Test 10/05/24 10:57 Range/Units Prothrombin Time 11.9 H 9.6-11.6 SEC Prothromb Time International Ratio 1.11 0.85-1.15 Activated Partial Thromboplast Time 30.8 26.3-35.5 SEC DIAGNOSTICS / RADIOLOGY RESULTS: [ ] PLAN NEURO: Minimize central acting medications as possible. Fall Precautions. Well lighted room through the day and minimize interruptions through the night to prevent acute delirium. PULMONARY: Supplemental 02 as needed Titrate Fio2 to keep Spo2 > or = 90% DuoNebs and CPT as needed IS hourly while awake for pulmonary hygiene Out of bed to chair as tolerated VAP Bundle CARDIOVASCULAR: Follow hemodynamics. Titrate vasopressor to keep MAP >65 or systolic blood pressure >95mmHg CV surgery has been consulted per cardiology recommendations DRIPS: NTG Heparin LINES: PIV GI & NUTRITION: Continue nutritional support Aspirations precautions Prokinetic agents and laxatives as needed KIDNEYS & ELECTROLYTES: Strict monitoring of intake and output Daily weights Avoid nephrotoxic agents Monitor electrolytes and replace as needed Goal urine output of 30mL/hr or 0.5mL/kg/hr ENDOCRINE: Maintain blood glucose between 100-180 at all times. Insulin sliding scale for blood glucose management INFECTIOUS DISEASE: Trend temperature. Haddad-culture if febrile. Micro: NA Antibiotics: NA HEMATOLOGY & COAGULATION: Monitor H&H. Keep Hgb > 7 Transfuse 1 unit of PRBC for Hgb < 7 Transfuse 1 pack of platelets of platelets < 20, 000 Watch for any signs and symptoms of bleeding SKIN: Pressure ulcer prevention per facility protocol Rehab: PT/OT Prophylaxis: GI: Protonix DVT: Heparin Code Status: Full Resuscitation Disposition: ICU Other: Total patient care time exceeds 35 minutes excluding all procedures. Case was discussed and seen with my supervising physician. The above plan was formulated and agreed upon. [facility] Oct 05, 2024 16:47
[2024-10-05 17:14] LABS: ABG BASE EXCESS 1.2 mmol/L (-2.0-3.0); ABG HCO3 26.8 mmol/L (21.0-28.0); ABG OXYGEN SATURATION 97.6 % (94.0-98.0); ABG PCO2 46 mmHg (35-48); ABG PH 7.379 (7.350-7.450); CARBON MONOXIDE 0.4 % (0.5-1.5); DEVICE COMMENT RN U; HHb 2.4; PO2, ARTERIAL BG 131.3 mmHg (83.0-108.0); VENT MODE, BG SIMV (ROOM AIR)
[2024-10-05 18:36] LABS: ABG BASE EXCESS -0.6 mmol/L (-2.0-3.0); ABG HCO3 24.5 mmol/L (21.0-28.0); ABG OXYGEN SATURATION 97.7 % (94.0-98.0); ABG PCO2 42 mmHg (35-48); ABG PH 7.385 (7.350-7.450); CARBON MONOXIDE 0.6 % (0.5-1.5); HHb 2.3; VENT MODE, BG SIMV,PS10 (ROOM AIR)
[2024-10-05 18:40] LABS: ABG BASE EXCESS 0.4 mmol/L (-2.0-3.0); ABG HCO3 25.1 mmol/L (21.0-28.0); ABG OXYGEN SATURATION 97.8 % (94.0-98.0); ABG PCO2 41 mmHg (35-48); ABG PH 7.406 (7.350-7.450); CARBON MONOXIDE 0.7 % (0.5-1.5); HHb 2.2; PO2, ARTERIAL BG 126.5 mmHg (83.0-108.0); VENT MODE, BG SIMV (ROOM AIR)
[2024-10-05 19:48] LABS: ABG BASE EXCESS -1.8 mmol/L (-2.0-3.0); ABG HCO3 23.5 mmol/L (21.0-28.0); ABG OXYGEN SATURATION 97.2 % (94.0-98.0); ABG PCO2 42 mmHg (35-48); ABG PH 7.369 (7.350-7.450); CARBON MONOXIDE 0.3 % (0.5-1.5); HHb 2.8; PO2, ARTERIAL BG 113.2 mmHg (83.0-108.0); VENT MODE, BG AM,40 (ROOM AIR)
[2024-10-05] MEDS: doCUSate SODIUM 100 MG CAP PO SCH (20:07)
--- NOTE | 2024-10-05 23:33 | OP ---
DATE OF PROCEDURE: 10/05/2024 PREOPERATIVE DIAGNOSIS: Coronary artery disease, 3-vessel. POSTOPERATIVE DIAGNOSIS: Coronary artery disease, 3-vessel. PROCEDURE PERFORMED: Off-pump CABG x 2, ELIZONDO to LAD, reverse saphenous vein graft to oblique marginal. SURGEON: Antony Calles MD MOTION PICTURE ACTOR: Abhilash. DISPOSITION: Stable. COMPLICATIONS: None. INDICATIONS FOR SURGERY: This is a patient of Dr. Gallegos, in whom I had the opportunity to review the films and discussed the case with the caring bead supervisor. We both agree surgery is indicated and we have recommended. I have discussed with the patient and family, indications for surgery as well as the potential complications of the operation including, but not limited to postoperative bleeding, infection, stroke and/or . He understands this as well as associated morbidity and mortality of the operation as it relates to his own comorbidities and wishes to proceed. FINDINGS AT TIME OF SURGERY: The LAD had a proximal lesion and then was diffusely diseased. The anastomosis had a CHELO 1 flow. The ELIZONDO was anastomosed to the LAD distal to the diffuse disease. The diagonal was explored and was 1.5-mm proximal. Distally to this was diffusely diseased and I do not think it was going to stay open. The circumflex system gave branch to an oblique marginal system that had 2 branches and was thoroughly occluded. This vessel was bypassed. The PDA was explored, was too small distal to a total obstruction. The descending right coronary artery was explored and was completely calcified and did not open into a bifurcation, which was small artery. This vessel was filled in retrograde and I believe this is a chronic occlusion, so I opted not to bypass at this time. Transesophageal echocardiogram demonstrates good function. The left ventricle was dyskinetic in the apex and had some signs of chronic ischemia. DRAINS: A 32 mediastinal and 19 left-sided Shen. BLOOD UTILIZATION: None. ESTIMATED BLOOD LOSS: 400 mL. IMPLANTS: Three SAMMY plates with eighteen #16 gauge screws. DESCRIPTION OF PROCEDURE IN DETAIL: With the patient in supine position after adequate induction of general endotracheal anesthesia, preoperative intravenous antibiotics, percutaneous arterial and venous lines, chest entered to mid sternotomy, simultaneous harvesting of the left internal mammary artery from anterior left chest wall and greater saphenous vein from the left lower extremity using endoscopic technique. The patient systemically heparinized and the mammary artery from chest in preparation for bypass. Chest retractor was placed. Utilizing mechanical stabilizer and 4-prong tourniquet for vascular control, 2 distal anastomoses performed between the ELIZONDO and LAD, reverse saphenous vein graft and oblique marginal. A partial occlusion clamp placed on the ascending aorta and one 4.8-mm punch was performed, running suture of 5-0 Prolene to construct the proximal anastomosis. Grafts de-aired and myocardium revascularized. Protamine, hemostasis and closure. Stainless steel wires for sternum, open reduction and internal fixation utilizing 3 SAMMY plates and eighteen #16 gauge screws, #1 Vicryl and 3-0 Monocryl for closure. The patient transferred to the ICU in stable condition. TID: [id number] RECEIPT: [id number] cc: BAKARI GALLEGOS MD(User)
[2024-10-06] VITALS (94 sets, daily range): BP systolic 85–175; BP diastolic 49–86; PULSE 84–111; RESP 10–28; TEMP 98.3–99.1; O2SAT 96–100
[2024-10-06 00:11] LABS: ABG BASE EXCESS 2.2 mmol/L (-2.0-3.0); ABG HCO3 27.1 mmol/L (21.0-28.0); ABG PCO2 43 mmHg (35-48); ABG PH 7.413 (7.350-7.450); CARBON MONOXIDE 0.9 % (0.5-1.5); PO2, ARTERIAL BG 101.7 mmHg (83.0-108.0); VENT MODE, BG AM,40 (ROOM AIR)
[2024-10-06 04:10] LABS: HEMATOCRIT 34.5 % (42-54); MEAN CORPUSCULAR HEMOGLOBIN 31.4 pg (27.0-33.0); RED BLOOD CELL COUNT(AUTO) 3.63 MIL/uL (4.50-6.20); WHITE BLOOD COUNT (AUTO) 16.6 K/uL (4.8-10.8)
[2024-10-06 04:22] LABS: INR 1.1 (0.85-1.15); PROTHROMBIN TIME 11.8 SEC (9.6-11.6)
[2024-10-06 04:24] LABS: PARTIAL THROMBOPLASTIN TIME 32.2 SEC (26.3-35.5)
[2024-10-06 04:26] LABS: MAGNESIUM 1.7 mg/dL (1.80-2.40); POTASSIUM 4.1 mmol/L (3.5-5.1)
[2024-10-06] MEDS: furoSEMIDE 20MG VIAL IV SCH (07:40)
[2024-10-06 07:51] LABS: ABG BASE EXCESS 3.5 mmol/L (-2.0-3.0); ABG HCO3 27.9 mmol/L (21.0-28.0); ABG OXYGEN SATURATION 92.4 % (94.0-98.0); ABG PCO2 41 mmHg (35-48); ABG PH 7.446 (7.350-7.450); CARBON MONOXIDE 1.2 % (0.5-1.5); HHb 7.5; PO2, ARTERIAL BG 64.5 mmHg (83.0-108.0); VENT MODE, BG RA (ROOM AIR)
--- NOTE | 2024-10-06 07:51 | PN ---
[facility]OLOG[facility] PROGRESS NOTE Date Patient Seen: Oct 06, 2024 Time of Visit: 07:49 Interval History: [ S/p CABG. CXR clear.] Physical Examination: GENERAL: [No acute distress.] HEAD: [Normal with no signs of head trauma.] EYES: [PERRLA, EOMI, conjunctiva and sclera normal.] ENT: [Hearing grossly intact, normal oropharynx.] NECK: [Supple without JVD. There is no tenderness, lymphadenopathy, or masses. No thyromegaly. Normal carotid upstrokes without bruits.] LUNGS: [Clear breath sounds bilaterally. There are right basilar rales one third of the way up the chest. No wheezes, or rhonchi.] HEART: [Normal rate and rhythm. Normal S1 and S2 without mumurs, gallop or rub.] VASC: [Peripheral pulses +2 bilaterally.] ABD: [Bowel sounds normal, soft, nontender, no masses, no organomegaly. No audible bruits.] : [Not examined] LYMPH: [No lymphadenopathy noted.] EXT: [No clubbing, cyanosis or edema.] SKIN: [No rashes or lesions noted.] NEURO: [Awake, alert, and oriented x3. No focal sensory or strength deficits noted.] Laboratory: [ ] Hematology Labs: Test 10/06/24 03:51 10/05/24 04:30 Range/Units White Blood Count 16.6 #H 4.8-10.8 K/uL Red Blood Count 3.63 L 4.50-6.20 MIL/uL Hemoglobin 11.4 L 14.0-18.0 g/dL Hematocrit 34.5 L 42-54 % Mean Corpuscular Volume 95.0 79-99 fL Mean Corpuscular Hemoglobin 31.4 27.0-33.0 pg Mean Corpuscular Hemoglobin Concent 33.0 32.0-36.0 g/dL Red Cell Distribution Width 12.0 11.0-15.5 % Platelet Count 194 130-400 K/uL Mean Platelet Volume 10.6 H 7.5-10.5 fL Nucleated Red Blood Cells 0.0 0.0-0.19 % Immature Granulocyte % (Auto) 0.3 0-1 % Neutrophils (%) (Auto) 62.7 40.0-77.0 % Lymphocytes (%) (Auto) 21.5 21.0-51.0 % Monocytes (%) (Auto) 10.6 3.0-13.0 % Eosinophils (%) (Auto) 4.1 0.0-8.0 % Basophils (%) (Auto) 0.8 0.0-5.0 % Neutrophils # (Auto) 5.5 1.8-7.7 K/uL Lymphocytes # (Auto) 1.9 1.0-4.8 K/uL Monocytes # (Auto) 0.9 0.1-1.0 K/uL Eosinophils # (Auto) 0.36 0.00-0.70 K/uL Basophils # (Auto) 0.07 0.00-0.20 K/uL Absolute Immature Granulocyte (auto 0.03 0-1 K/uL Chemistry Labs: Test 10/06/24 06:11 10/06/24 03:51 10/05/24 04:30 Range/Units Whole Blood Glucose 95 70-110 MG/DL Sodium Level 140 136-145 mmol/L Potassium Level 4.1 3.5-5.1 mmol/L Chloride Level 105 101-111 mmol/L Carbon Dioxide Level 32 21-32 mmol/L Blood Urea Nitrogen 14 7-18 mg/dL Creatinine 1.0 0.5-1.3 mg/dL Glomerular Filtration Rate Calc 81 >90 mL/min Random Glucose 117 H 70-105 mg/dL Total Calcium 8.9 8.5-10.1 mg/dL Ionized Calcium 1.15 L 1.16-1.32 MMOL/L Phosphorus Level 5.0 H 2.5-4.9 mg/dL Magnesium Level 1.70 L 1.80-2.40 mg/dL Total Bilirubin 0.6 0.2-1.0 mg/dL Aspartate Amino Transf (AST/SGOT) 29 10-37 U/L Alanine Aminotransferase (ALT/SGPT) 38 12-78 U/L Alkaline Phosphatase 81 50-136 U/L B-Type Natriuretic Peptide 303 H 0-100 pg/mL Total Protein 6.9 6.0-8.3 g/dL Albumin 3.2 L 3.5-5.0 g/dL Coagulation Labs: Test 10/06/24 03:51 Range/Units Prothrombin Time 11.8 H 9.6-11.6 SEC Prothromb Time International Ratio 1.10 0.85-1.15 Activated Partial Thromboplast Time 32.2 26.3-35.5 SEC Fibrinogen 499 H 180-350 mg/dL Diagnostics / Radiology: [Copy/Paste Echos/Imaging Report here] Impression and Plan: [NSTEMI Pulmonary vascular congestion Epigastric pain Leukocytosis Acute renal failure secondary to ATN from dehydration Electrolyte derangement (hyponatremia, hypokalemia) Hyperglycemia in setting of type 2 diabetes mellitus Leukocytosis without left band shift Chronic problem list: diabetes mellitus, hypertension, gastritis, former light smoker] Plan: [#NSTEMI -Trop [id number] -ECG with biphasic T wave v2 and v3, TWI v4-v-6 -2d echo normal LVEF and no valvular pathology -c/w aspirin 81 mg qd, statin -underwent LHC with Dr Lamb 09/29: diffusely calcific long 80% stenosis in the mid LAD, spontaneously reperfused prior to angiography with probable early washout with very high 2nd troponin of 47,283. -Severe three-vessel coronary artery disease with 80% diagonal one stenosis, 70% proximal circumflex stenosis, 90% OM1 stenosis and chronically occluded mid RCA with PDA and PLV branches filling by [id number] collaterals. -Evidence of old inferior wall DE by EKG with associated occluded RCA consistent with silent old inferior wall DE. -S/p CABG, was not able to bypass the R PDA due to being a small vessel -c/w lasix 20 mg po bid -nitro gtt started for hypertension, started metoprolol tartrate 25 mg bid as well -off pressors Ashley Alexis MD ] ASHLEY ALEXIS MD Oct 06, 2024 07:50
[2024-10-06] MEDS: metoPROLOL tartRATE 25 MG TAB PO SCH (08:24)
--- NOTE | 2024-10-06 10:19 | PN ---
[facility] PROGRESS NOTE Date Patient Seen: Oct 06, 2024 Time of Visit: 10:15 Supervising Physician: Carlos Eduardo Saavedra MD Primary Care Physician: Sheyla Cedeno @ [facility] Outpatient Specialists: Inpatient Consults: Cardiology PROBLEM LIST: Off-pump CABG x 2, ELIZONDO to LAD, reverse saphenous vein graft to oblique marginal on 10/05/24 Dr Stevan Thomas STEMI-- troponin is 221 peaked to 47K, EKG No ST elevation- HEART SCORE FOR MACE 5 pts- moderate- risk of MACE 12-16%. S/P LHC with finding of MV CAD: mid LAD, diag, OM, and RCA occlusion on 09/29/24 Chest pain secondary to above Obstructed sleep apnea- witnessed here during hospital stay Acute renal failure secondary to ATN from dehydration Gastritis versus duodenal ulcer flare from spicy food ( patient likes to eat habanero daily) Hyponatremia Suspect obstructive sleep apnea Hyperglycemia in setting of type 2 diabetes mellitus Pulmonary vascular congestion- likely from acute CHF preserved EF Leukocytosis without left band shift Obesity BMI 32 History of diabetes mellitus, hypertension, gastritis, former light smoker INTERVAL HISTORY: Patient came to the hospital yesterday with substernal chest pain. Patient feels burning sensation in the chest 3 hours after he ate habanero. He admits eating spicy food on a daily basis. Patient has history of gastritis not on any PPI. Patient denies any history of cardiac problem other than hypertension. He has seen Dr. Gotti as outpatient for cardiac clearance. His troponin was 220 when he came in and we are trending this. We will obtain EKG. At this time patient is on heparin drip per ACS protocol. Aspirin and statin has been started. Obtain Cardiology clearance. Check BNP. Echocardiogram is pending. In the meantime, likely this gastric burning was from gastritis versus duodenal ulcer. We will start patient with GI cocktail. We will start him also on Carafate. 09/30 patient had remarkable troponin elevation up to 47 K yesterday from 220. T his morning patient is upgraded to ICU secondary to persistent chest pain, he was started on nitroglycerin drip. Patient had undergone a left heart catheterization yesterday with finding of multivessel coronary artery disease, pending CV surgery recommendations for coronary artery bypass graft surgery. Patient remains on heparin drip for ACS. Continue with p.r.n. pain medication. bowel regimen. In the meantime patient is NPO pending CV surgery recommendation. 10/01 patient is awake alert and oriented x3 no acute chest pain but remains on nitroglycerin drip. Patient is was on heparin drip. Vital signs blood pressure 119/68 pulse is 87. WBC is 11 this is down from 11.3 and chemistry is sodium 131 this is down from 133 yesterday. Creatinine is 1.1 this is stable. Glucose 127. Magnesium is 1.[address] electrolyte protocol. Pending CABG next week. 10/02 patient is awake alert oriented x3 no chest pain at this time. Patient remains on nitroglycerin drip titration. According to in tartrate for chest pain. This morning lab is unremarkable. Blood pressure 118/68 heart rate is 89. T-max is 98.4. Echocardiogram with LVEF of 35%. Patient is on aspirin and statin already. Consider beta-deb. Diuretic as needed. Patient is reported to have been hypoxic at night at sleep time. Patient reported that he has sleep apnea but never get tested. We will start patient on low CPAP at night with 8 cm Hg. We will need outpatient sleep apnea study. Patient is pending CV surgery for CABG. 10/03 patient is awake alert oriented x3 , no acute distress. Patient was tolerating CPAP overnight for 2 hours. Continued at nighttime. At this time, we can teach him how to use incentive spirometry. He remains on 2 L nasal cannula with sats 99%. Continue to wean down as tolerated. He has holiday lab this morning , we can check lab tomorrow morning. Otherwise continue with nitroglycerin drip and heparin drip. Patient has been started on beta-deb. 10/04 patient is awake alert oriented x3, no acute distress, conversing with family, vital signs blood pressure 117/71 map is 86 heart rate is 77. Respiratory rate is 18. He is on 2 L nasal cannula with sats 100%. He was able to be on CPAP for 5 hours overnight. Chemistry sodium 134 potassium 4.2 chloride 100 bicarb 26 BUN 12 creatinine is 1.0. Albumin is 3.2. Patient has been on heparin drip for ACS and nitroglycerin drip for chest pain. Continue ICU care given being on NTG drip. Continue to follow recommendation from CV team for CABG tomorrow. 10/05 patient is status post CABG x2 today. He remains intubated on SIMV /5/50%. He is postanesthesia care very drowsy but following very simple commands. We are still in the fast track extubation plan. Otherwise, His vital signs is stable, supported with vasopressor of epinephrine and Levophed drip , at the moment he is hyperdynamic. Continue to wean down vasopressors as tolerated to keep map greater than 65. Patient also is on insulin drip post CABG per protocol. His ABG is 7.38 /46 /107/26 O2 sat is 96%. Chest tube x2 in place , [place] catheter in place. Right groin sheath in place. Continue to monitor input and output closely. Follow post CABG protocol. Lab and Chest xray in AM. 10/06-patient is awake alert and oriented x3, he was extubated yesterday around 1844 currently on 2 L via nasal cannula saturating 99%, off pressors blood pressure 159/74 heart rate 108 respiratory rate 16, and has been afebrile with a T-max of 99 and T low of 96.8 in the last 24 hours. Urine output 1.6 L, chest tube output 410 mL in the last 24 hours. WBCs 16.6 H&H 11.4/34.5 with a platelet count of 099660. Chemistries sodium 140 potassium 4.1 chloride 105 carbon dioxide 32 BUN 14 creatinine 1.0 GFR 81. Chest x-ray with improve in vascular congestion. Chest tube in place, right IJ appears to be in place. Post sternotomy changes. No pneumothorax, noted pending official radiology read. REVIEW OF SYSTEMS: Const: [No fever, fatigue, or weight changes] Eyes:[ no recent vision problems] ENT: [No congestion, ear pain, or sore throat] C/V: [no chest pain, palpitations or edema] yes for incision pain with coughing or movement Resp: [No cough, congestion, wheezing , or Shortness of breath] GI: [No abdominal pain, nausea, vomiting, constipation, or diarrhea] : [No incontinence of or dyuria] M/S: [No joint or pain swelling] Skin: [No rash] Neuro: [no headache, focal numbness, or weakness, dizziness or seizures] Psych: [no depression or anxiety] Heme: [no abnormal bruising or bleeding] Lymph: [no swollen glands] PHYSICAL EXAM: GENERAL: Alert, weak, awake oriented x 3 HEENT: EOMI, Sclera non icteric, moist mucosa NECK: Supple, no JVD, trachea midline LUNGS: Clear breath sounds bilaterally. No wheezes HEART: Regular rate and rhythm. Normal S1 and S2, without murmurs ABD: Abdomen soft, nontender. Bowel sounds present EXT: No clubbing cyanosis or edema, right femoral sheath still in place +1 bilateral pedal pulse NEURO: Alert and oriented X3, follows commands Vital Signs (last 8hr) Date Time Temp Pulse Resp B/P (MAP) Pulse Ox O2 Delivery O2 Flow Rate FiO2 10/06/24 09:45 89 20 100 134/67 (89) 10/06/24 09:30 93 19 100 146/71 (96) 10/06/24 09:15 94 18 100 128/73 (91) 10/06/24 09:00 101 12 138/61 (86) 99 153/67 (95) 10/06/24 08:45 108 16 99 167/70 (102) 10/06/24 08:30 108 16 99 159/74 (102) 10/06/24 08:15 110 12 99 175/72 (106) 10/06/24 08:00 100 Nasal Cannula* 2 28 10/06/24 08:00 104 14 144/72 (96) 98 169/75 (106) 10/06/24 08:00 99.0 10/06/24 07:30 103 14 93 171/62 (98) 10/06/24 07:15 105 14 94 151/64 (93) 10/06/24 07:00 99.0 100 14 140/72 (94) 95 174/68 (103) 10/06/24 06:53 97 18 N/A Room Air 21 10/06/24 06:15 101 13 99 164/72 (102) 10/06/24 06:00 99 17 134/66 (88) 100 21 146/62 (90) 10/06/24 05:45 100 20 100 142/65 (90) 10/06/24 05:30 96 12 100 136/57 (83) 10/06/24 05:15 98 18 100 149/64 (92) 10/06/24 05:00 99 18 135/77 (96) 100 28 153/65 (94) 10/06/24 04:45 103 18 100 150/62 (91) 10/06/24 04:30 100 18 100 146/59 (88) 10/06/24 04:15 103 11 100 146/61 (89) 10/06/24 04:00 98.8 100 15 138/76 (96) 100 28 153/64 (93) 10/06/24 04:00 100 CPAP+ 2 28 10/06/24 03:45 106 18 100 139/59 (85) 10/06/24 03:30 99 16 100 126/54 (78) 10/06/24 03:15 102 21 100 138/66 (90) 10/06/24 03:08 99 18 28 10/06/24 03:00 107 13 125/70 (88) 100 28 128/61 (83) 10/06/24 02:45 106 21 100 134/59 (84) 10/06/24 02:30 109 21 99 137/64 (88) LABS: Hematology Labs: Test 10/06/24 03:51 10/05/24 04:30 Range/Units White Blood Count 16.6 #H 4.8-10.8 K/uL Red Blood Count 3.63 L 4.50-6.20 MIL/uL Hemoglobin 11.4 L 14.0-18.0 g/dL Hematocrit 34.5 L 42-54 % Mean Corpuscular Volume 95.0 79-99 fL Mean Corpuscular Hemoglobin 31.4 27.0-33.0 pg Mean Corpuscular Hemoglobin Concent 33.0 32.0-36.0 g/dL Red Cell Distribution Width 12.0 11.0-15.5 % Platelet Count 194 130-400 K/uL Mean Platelet Volume 10.6 H 7.5-10.5 fL Nucleated Red Blood Cells 0.0 0.0-0.19 % Immature Granulocyte % (Auto) 0.3 0-1 % Neutrophils (%) (Auto) 62.7 40.0-77.0 % Lymphocytes (%) (Auto) 21.5 21.0-51.0 % Monocytes (%) (Auto) 10.6 3.0-13.0 % Eosinophils (%) (Auto) 4.1 0.0-8.0 % Basophils (%) (Auto) 0.8 0.0-5.0 % Neutrophils # (Auto) 5.5 1.8-7.7 K/uL Lymphocytes # (Auto) 1.9 1.0-4.8 K/uL Monocytes # (Auto) 0.9 0.1-1.0 K/uL Eosinophils # (Auto) 0.36 0.00-0.70 K/uL Basophils # (Auto) 0.07 0.00-0.20 K/uL Absolute Immature Granulocyte (auto 0.03 0-1 K/uL Chemistry Labs: Test 10/06/24 06:11 10/06/24 03:51 10/05/24 04:30 Range/Units Whole Blood Glucose 95 70-110 MG/DL Sodium Level 140 136-145 mmol/L Potassium Level 4.1 3.5-5.1 mmol/L Chloride Level 105 101-111 mmol/L Carbon Dioxide Level 32 21-32 mmol/L Blood Urea Nitrogen 14 7-18 mg/dL Creatinine 1.0 0.5-1.3 mg/dL Glomerular Filtration Rate Calc 81 >90 mL/min Random Glucose 117 H 70-105 mg/dL Total Calcium 8.9 8.5-10.1 mg/dL Ionized Calcium 1.15 L 1.16-1.32 MMOL/L Phosphorus Level 5.0 H 2.5-4.9 mg/dL Magnesium Level 1.70 L 1.80-2.40 mg/dL Total Bilirubin 0.6 0.2-1.0 mg/dL Aspartate Amino Transf (AST/SGOT) 29 10-37 U/L Alanine Aminotransferase (ALT/SGPT) 38 12-78 U/L Alkaline Phosphatase 81 50-136 U/L B-Type Natriuretic Peptide 303 H 0-100 pg/mL Total Protein 6.9 6.0-8.3 g/dL Albumin 3.2 L 3.5-5.0 g/dL Coagulation Labs: Test 10/06/24 03:51 Range/Units Prothrombin Time 11.8 H 9.6-11.6 SEC Prothromb Time International Ratio 1.10 0.85-1.15 Activated Partial Thromboplast Time 32.2 26.3-35.5 SEC Fibrinogen 499 H 180-350 mg/dL DIAGNOSTICS / RADIOLOGY RESULTS: [ ] PLAN Follow CT surgeon recommendations Follow cardiology recommendations Multimodal pain management Monitoring H&H Monitor chest tube output Chest x-ray in the morning Transfuse if absolutely necessary to keep hemoglobin above 8 Maintain O2 sats greater than 92% Incentive spirometry Glycemic control with goal of 80-180 Referral for cardiac rehabilitation Aspiration precautions NEURO: Minimize central acting medications as possible. Fall Precautions. Well lighted room through the day and minimize interruptions through the night to prevent acute delirium. PULMONARY: Supplemental 02 as needed Titrate Fio2 to keep Spo2 > or = 90% DuoNebs and CPT as needed IS hourly while awake for pulmonary hygiene Out of bed to chair as tolerated VAP Bundle CARDIOVASCULAR: Follow hemodynamics. Titrate vasopressor to keep MAP >65 or systolic blood pressure >95mmHg CV surgery has been consulted per cardiology recommendations DRIPS: None LINES: Right IJ Chest tube Arterial line Right femoral sheath GI & NUTRITION: Continue nutritional support Aspirations precautions Prokinetic agents and laxatives as needed KIDNEYS & ELECTROLYTES: Strict monitoring of intake and output Daily weights Avoid nephrotoxic agents Monitor electrolytes and replace as needed Goal urine output of 30mL/hr or 0.5mL/kg/hr ENDOCRINE: Maintain blood glucose between 100-180 at all times. Insulin sliding scale for blood glucose management INFECTIOUS DISEASE: Trend temperature. Haddad-culture if febrile. Micro: NA Antibiotics: NA HEMATOLOGY & COAGULATION: Monitor H&H. Keep Hgb > 7 Transfuse 1 unit of PRBC for Hgb < 7 Transfuse 1 pack of platelets of platelets < 20, 000 Watch for any signs and symptoms of bleeding SKIN: Pressure ulcer prevention per facility protocol Rehab: PT/OT Prophylaxis: GI: Protonix DVT: MADAN Arreguin per CV surgery Code Status: Full Resuscitation Disposition: ICU Other: Total patient care time exceeds 35 minutes excluding all procedures. Case was discussed and seen with my supervising physician. The above plan was formulated and agreed upon. SCOOTER [facility]Z [facility] Oct 06, 2024 10:19
--- NOTE | 2024-10-06 11:46 | HMCIMG ---
CHEST 1VW HISTORY: Post CABG COMPARISON: 10/05/2024 FINDINGS: A frontal projection of the chest was obtained. Prominent interstitial markings are seen with possible superimposed infiltrates. Poststernotomy changes are seen. The heart is enlarged. Degenerative changes of the thoracolumbar spine are present. Endotracheal tube and nasogastric tube have been removed. All the lines and tubes are again seen in place. No evidence of aortic calcification is seen. IMPRESSION: 1. Prominent interstitial markings are seen with possible superimposed infiltrates.
[2024-10-06] MEDS: traMADol HCL 50 MG TABLET PO PRN (20:03)
[2024-10-07] VITALS (70 sets, daily range): BP systolic 96–244; BP diastolic 46–239; PULSE 84–107; RESP 12–87; TEMP 98.3–99.5; O2SAT 98–100
[2024-10-07 04:22] LABS: HEMATOCRIT 30.3 % (42-54); MEAN CORPUSCULAR HEMOGLOBIN 31.3 pg (27.0-33.0); MEAN CORPUSCULAR HGB CONC 32.7 g/dL (32.0-36.0); MEAN CORPUSCULAR VOLUME 95.9 fL (79-99); NUCLEATED RED BLOOD CELLS 0.1 % (0.0-0.19); RED BLOOD CELL COUNT(AUTO) 3.16 MIL/uL (4.50-6.20); RED CELL DISTRIBUTION WIDTH 12.3 % (11.0-15.5); WHITE BLOOD COUNT (AUTO) 16.5 K/uL (4.8-10.8)
[2024-10-07 04:25] LABS: POTASSIUM 4.4 mmol/L (3.5-5.1)
[2024-10-07] MEDS: acetaMINOPHEN 325 MG TAB PO PRN (05:45)
[2024-10-07] MEDS: INSULIN REGULAR, HUMAN 3ML 100 UNIT in 0.9%NACL 100ML 99 ML IV SCH (05:51)
--- NOTE | 2024-10-07 07:43 | PN ---
[facility] PROGRESS NOTE Date Patient Seen: Oct 07, 2024 Time of Visit: 07:39 Interval History: [ S/p CABG. CXR with worsening pulmonary edema. ] Physical Examination: GENERAL: [No acute distress.] HEAD: [Normal with no signs of head trauma.] EYES: [PERRLA, EOMI, conjunctiva and sclera normal.] ENT: [Hearing grossly intact, normal oropharynx.] NECK: [Supple without JVD. There is no tenderness, lymphadenopathy, or masses. No thyromegaly. Normal carotid upstrokes without bruits.] LUNGS: [Clear breath sounds bilaterally. There are right basilar rales one third of the way up the chest. No wheezes, or rhonchi.] HEART: [Normal rate and rhythm. Normal S1 and S2 without mumurs, gallop or rub.] VASC: [Peripheral pulses +2 bilaterally.] ABD: [Bowel sounds normal, soft, nontender, no masses, no organomegaly. No avery ble bruits.] : [Not examined] LYMPH: [No lymphadenopathy noted.] EXT: [No clubbing, cyanosis or edema.] SKIN: [No rashes or lesions noted.] NEURO: [Awake, alert, and oriented x3. No focal sensory or strength deficits noted.] Laboratory: [ ] Hematology Labs: Test 10/07/24 03:52 Range/Units White Blood Count 16.5 H 4.8-10.8 K/uL Red Blood Count 3.16 L 4.50-6.20 MIL/uL Hemoglobin 9.9 L 14.0-18.0 g/dL Hematocrit 30.3 L 42-54 % Mean Corpuscular Volume 95.9 79-99 fL Mean Corpuscular Hemoglobin 31.3 27.0-33.0 pg Mean Corpuscular Hemoglobin Concent 32.7 32.0-36.0 g/dL Red Cell Distribution Width 12.3 11.0-15.5 % Platelet Count 182 130-400 K/uL Mean Platelet Volume 10.6 H 7.5-10.5 fL Nucleated Red Blood Cells 0.1 0.0-0.19 % Chemistry Labs: Test 10/07/24 05:55 10/07/24 03:52 10/06/24 03:51 Range/Units Whole Blood Glucose 99 70-110 MG/DL Sodium Level 136 136-145 mmol/L Potassium Level 4.4 3.5-5.1 mmol/L Chloride Level 99 L 101-111 mmol/L Carbon Dioxide Level 33 H 21-32 mmol/L Blood Urea Nitrogen 14 7-18 mg/dL Creatinine 1.0 0.5-1.3 mg/dL Glomerular Filtration Rate Calc 81 >90 mL/min Random Glucose 103 70-105 mg/dL Total Calcium 8.5 8.5-10.1 mg/dL Magnesium Level 2.00 1.80-2.40 mg/dL Ionized Calcium 1.15 L 1.16-1.32 MMOL/L Phosphorus Level 5.0 H 2.5-4.9 mg/dL Coagulation Labs: Test 10/06/24 03:51 Range/Units Prothrombin Time 11.8 H 9.6-11.6 SEC Prothromb Time International Ratio 1.10 0.85-1.15 Activated Partial Thromboplast Time 32.2 26.3-35.5 SEC Fibrinogen 499 H 180-350 mg/dL Diagnostics / Radiology: [Copy/Paste Echos/Imaging Report here] Impression and Plan: [NSTEMI Pulmonary vascular congestion Epigastric pain Leukocytosis Acute renal failure secondary to ATN from dehydration Electrolyte derangement (hyponatremia, hypokalemia) Hyperglycemia in setting of type 2 diabetes mellitus Leukocytosis without left band shift Chronic problem list: diabetes mellitus, hypertension, gastritis, former light smoker] Plan: [#NSTEMI -Trop [id number] -ECG with biphasic T wave v2 and v3, TWI v4-v-6 -2d echo normal LVEF and no valvular pathology -c/w aspirin 81 mg qd, statin -underwent LHC with Dr Lamb 09/29: diffusely calcific long 80% stenosis in the mid LAD, spontaneously reperfused prior to angiography with probable early washout with very high 2nd troponin of 47,283. -Severe three-vessel coronary artery disease with 80% diagonal one stenosis, 70% proximal circumflex stenosis, 90% OM1 stenosis and chronically occluded mid RCA with PDA and PLV branches filling by [id number] collaterals. -Evidence of old inferior wall LA by EKG with associated occluded RCA consistent with silent old inferior wall LA. -S/p CABG, was not able to bypass the R PDA due to being a small vessel -10/07 CXR with pulmonary edema, gave lasix 40 mg IV x1 this AM, will continue IV lasix 20 mg q12h -nitro gtt started for hypertension, started metoprolol tartrate 25 mg bid as well Ashley Alexis MD ] ASHLEY ALEXIS MD Oct 07, 2024 07:43
--- NOTE | 2024-10-07 07:53 | PN ---
SUBJECTIVE: Status post CABG, coursing postoperative day #1. OBJECTIVE: GENERAL: Awake, alert, afebrile, neurologically intact. VITAL SIGNS: Stable as recorded in medical record. CHEST: Sternum stable. Incision sealed. LUNGS: Clear. EXTREMITIES: Warm, well perfused. No evidence of DVT, hematoma, or infection. ASSESSMENT: Status post coronary artery bypass graft. PROBLEMS: 1. Coronary artery disease. Aspirin 81 mg, metoprolol 25 mg twice a day. 2. Dyslipidemia. Lipitor 40 mg once a day. 3. Fluid overload. Lasix 20 mg twice a day. PLAN: OT, PT out of bed, encourage deep breathing and coughing. TID: [id number] RECEIPT: [id number]
[2024-10-07] MEDS: furoSEMIDE 40MG VIAL IV ONE (08:35)
[2024-10-07] MEDS ORDERED: metoPROLOL tartRATE 25 MG TAB PO SCH (09:00)
[2024-10-07] MEDS ORDERED: furoSEMIDE 20 MG TABLET PO SCH (09:00)
--- NOTE | 2024-10-07 09:17 | HMCIMG ---
CHEST 1VW HISTORY: Post CABG COMPARISON: 10/06/2024 FINDINGS: A frontal projection of the chest was obtained. Mild bilateral pulmonary infiltrates are seen may be related to mild pulmonary vascular congestion with possible superimposed pneumonitis. Poststernotomy changes are seen. The heart is enlarged. Degenerative changes of the thoracolumbar spine are present. All the lines and tubes are again seen in place. Degenerative changes are seen. IMPRESSION: 1. Mild bilateral pulmonary infiltrates are seen may be related to mild pulmonary vascular congestion with possible superimposed pneumonitis.
--- NOTE | 2024-10-07 09:46 | PN ---
[facility] PROGRESS NOTE Date Patient Seen: Oct 07, 2024 Time of Visit: 09:41 Supervising Physician: Sivakumar Ballesteros MD Primary Care Physician: Sheyla Cedeno @ [facility] Outpatient Specialists: Inpatient Consults: Cardiology PROBLEM LIST: Off-pump CABG x 2, ELIZONDO to LAD, reverse saphenous vein graft to oblique marginal on 10/05/24 Dr Stevan Thomas STEMI-- troponin is 221 peaked to 47K, EKG No ST elevation- HEART SCORE FOR MACE 5 pts- moderate- risk of MACE 12-16%. S/P LHC with finding of MV CAD: mid LAD, diag, OM, and RCA occlusion on 09/29/24 Chest pain secondary to above Obstructed sleep apnea- witnessed here during hospital stay Acute renal failure secondary to ATN from dehydration Gastritis versus duodenal ulcer flare from spicy food ( patient likes to eat habanero daily) Hyponatremia Suspect obstructive sleep apnea Hyperglycemia in setting of type 2 diabetes mellitus Pulmonary vascular congestion- likely from acute CHF preserved EF Leukocytosis without left band shift Obesity BMI 32 History of diabetes mellitus, hypertension, gastritis, former light smoker INTERVAL HISTORY: Patient came to the hospital yesterday with substernal chest pain. Patient feels burning sensation in the chest 3 hours after he ate habanero. He admits eating spicy food on a daily basis. Patient has history of gastritis not on any PPI. Patient denies any history of cardiac problem other than hypertension. He has seen Dr. Gotti as outpatient for cardiac clearance. His troponin was 220 when he came in and we are trending this. We will obtain EKG. At this time patient is on heparin drip per ACS protocol. Aspirin and statin has been started. Obtain Cardiology clearance. Check BNP. Echocardiogram is pending. In the meantime, likely this gastric burning was from gastritis versus duodenal ulcer. We will start patient with GI cocktail. We will start him also on Carafate. 09/30 patient had remarkable troponin elevation up to 47 K yesterday from 220. This morning patient is upgraded to ICU secondary to persistent chest pain, he was started on nitroglycerin drip. Patient had undergone a left heart catheterization yesterday with finding of multivessel coronary artery disease, pending CV surgery recommendations for coronary artery bypass graft surgery. Patient remains on heparin drip for ACS. Continue with p.r.n. pain medication. bowel regimen. In the meantime patient is NPO pending CV surgery recommendation. 10/01 patient is awake alert and oriented x3 no acute chest pain but remains on nitroglycerin drip. Patient is was on heparin drip. Vital signs blood pressure 119/68 pulse is 87. WBC is 11 this is down from 11.3 and chemistry is sodium 131 this is down from 133 yesterday. Creatinine is 1.1 this is stable. Glucose 127. Magnesium is 1.[address] electrolyte protocol. Pending CABG next week. 10/02 patient is awake alert oriented x3 no chest pain at this time. Patient remains on nitroglycerin drip titration. According to in tartrate for chest pain. This morning lab is unremarkable. Blood pressure 118/68 heart rate is 89. T-max is 98.4. Echocardiogram with LVEF of 35%. Patient is on aspirin and statin already. Consider beta-deb. Diuretic as needed. Patient is reported to have been hypoxic at night at sleep time. Patient reported that he has sleep apnea but never get tested. We will start patient on low CPAP at night with 8 cm Hg. We will need outpatient sleep apnea study. Patient is pending CV surgery for CABG. 10/03 patient is awake alert oriented x3 , no acute distress. Patient was tolerating CPAP overnight for 2 hours. Continued at nighttime. At this time, we can teach him how to use incentive spirometry. He remains on 2 L nasal cannula with sats 99%. Continue to wean down as tolerated. He has holiday lab this morning , we can check lab tomorrow morning. Otherwise continue with nitroglycerin drip and heparin drip. Patient has been started on beta-deb. 10/04 patient is awake alert oriented x3, no acute distress, conversing with family, vital signs blood pressure 117/71 map is 86 heart rate is 77. Respiratory rate is 18. He is on 2 L nasal cannula with sats 100%. He was able to be on CPAP for 5 hours overnight. Chemistry sodium 134 potassium 4.2 chloride 100 bicarb 26 BUN 12 creatinine is 1.0. Albumin is 3.2. Patient has been on heparin drip for ACS and nitroglycerin drip for chest pain. Continue ICU care given being on NTG drip. Continue to follow recommendation from CV team for CABG tomorrow. 10/05 patient is status post CABG x2 today. He remains intubated on SIMV 10/650/5/50%. He is postanesthesia care very drowsy but following very simple commands. We are still in the fast track extubation plan. Otherwise, His vital signs is stable, supported with vasopressor of epinephrine and Levophed drip , at the moment he is hyperdynamic. Continue to wean down vasopressors as tolerated to keep map greater than 65. Patient also is on insulin drip post CABG per protocol. His ABG is 7.38 /46 /107/26 O2 sat is 96%. Chest tube x2 in place , [place] catheter in place. Right groin sheath in place. Continue to monitor input and output closely. Follow post CABG protocol. Lab and Chest xray in AM. 10/06-patient is awake alert and oriented x3, he was extubated yesterday around 1844 currently on 2 L via nasal cannula saturating 99%, off pressors blood pressure 159/74 heart rate 108 respiratory rate 16, and has been afebrile with a T-max of 99 and T low of 96.8 in the last 24 hours. Urine output 1.6 L, chest tube output 410 mL in the last 24 hours. WBCs 16.6 H&H 11.4/34.5 with a platelet count of 287282. Chemistries sodium 140 potassium 4.1 chloride 105 carbon dioxide 32 BUN 14 creatinine 1.0 GFR 81. Chest x-ray with improve in vascular congestion. Chest tube in place, right IJ appears to be in place. Post sternotomy changes. No pneumothorax, noted pending official radiology read. 10/07-patient is awake alert and oriented x3 sitting up in recliner chair. Denies any chest pain, palpitation, shortness of breath, nausea, vomiting or chills. He reports his pain is well controlled. He has been afebrile with a T- max of 99 heart rate in the 90s respiratory rate of 19 unlabored saturating 98% on room air. Blood pressure 147/61, he continues on nitroglycerin drip that was started overnight for hypertension weaning down currently at 15 micrograms/minute. WBCs trending down 16.5 today H&H slightly lower today 9.9/30.3 platelet count is normal. Sodium 136 potassium 4.4 CO2 33, BUN 14 creatinine 1.0 GFR of 81. Per RN patient did not tolerate his CPAP well overnight. As per patient it did not function well overnight we will have RT take a look if nonfunctioning we can try our in-house CPAP machine. Otherwise patient has been having good urine output of 2.5 L in the last 24 hours with a balance of -1.6 he continues on Lasix 20 mg IV q.12 hours. Chest x-ray noted to have increased pulmonary vascular congestion. Chest tube drained 130 mL in the last 24 hours. REVIEW OF SYSTEMS: Const: [No fever, fatigue, or weight changes] Eyes:[ no recent vision problems] ENT: [No congestion, ear pain, or sore throat] C/V: [no chest pain, palpitations or edema] reports pain to incision well- controlled. Resp: [No cough, congestion, wheezing , or Shortness of breath] GI: [No abdominal pain, nausea, vomiting, constipation, or diarrhea] : [No incontinence of or dyuria] M/S: [No joint or pain swelling] Skin: [No rash] Neuro: [no headache, focal numbness, or weakness, dizziness or seizures] Psych: [no depression or anxiety] Heme: [no abnormal bruising or bleeding] Lymph: [no swollen glands] PHYSICAL EXAM: GENERAL: Alert, weak, awake oriented x 3 HEENT: EOMI, Sclera non icteric, moist mucosa NECK: Supple, no JVD, trachea midline LUNGS: Clear breath sounds bilaterally. No wheezes HEART: Regular rate and rhythm. Normal S1 and S2, without murmurs ABD: Abdomen soft, nontender. Bowel sounds present EXT: No clubbing cyanosis or edema, right femoral sheath still in place +1 bilateral pedal pulse NEURO: Alert and oriented X3, follows commands Vital Signs (last 8hr) Date Time Temp Pulse Resp B/P (MAP) Pulse Ox O2 Delivery O2 Flow Rate FiO2 10/07/24 09:15 93 19 117/66 (83) 98 147/61 (89) 10/07/24 09:00 92 19 97 157/66 (96) 10/07/24 08:45 98 19 118/102 (107) 99 147/60 (89) 10/07/24 08:30 96 19 111/63 (79) 99 139/54 (82) 10/07/24 08:15 100 18 111/57 (75) 100 131/48 (75) 10/07/24 08:00 99 Room Air* 0 21 10/07/24 08:00 99.0 99 Room Air 10/07/24 08:00 105 18 104/74 (84) 100 118/46 (70) 10/07/24 07:45 98 19 113/66 (82) 100 136/48 (77) 10/07/24 07:30 100 12 108/60 (76) 100 130/46 (74) 10/07/24 07:15 101 16 100 131/50 (77) 10/07/24 07:00 98 19 100 129/48 (75) 10/07/24 06:41 105 18 N/Cannula Low lpm 2.0 28 10/07/24 05:18 98 24 108/63 (78) 100 128/46 (73) 10/07/24 05:03 99 23 111/68 (82) 99 142/55 (84) 10/07/24 04:48 97 24 105/63 (77) 100 134/47 (76) 10/07/24 04:33 99 24 107/64 (78) 100 136/48 (77) 10/07/24 04:15 99 25 113/69 (84) 100 138/49 (78) 10/07/24 04:00 97 21 108/60 (76) 100 121/46 (71) 10/07/24 04:00 99 Nasal Cannula* 2 28 10/07/24 04:00 98.2 10/07/24 03:45 99 19 114/62 (79) 100 129/49 (75) 10/07/24 03:30 97 21 107/65 (79) 100 131/52 (78) 10/07/24 03:15 98 18 108/64 (79) 100 125/47 (73) 10/07/24 03:00 100 14 109/69 (82) 100 129/52 (77) 10/07/24 02:45 107 14 108/66 (80) 99 112/49 (70) 10/07/24 02:30 106 16 111/69 (83) 100 126/56 (79) 10/07/24 02:15 104 14 108/65 (79) 100 115/51 (72) 10/07/24 02:00 102 28 100/67 (78) 99 119/50 (73) 11/6/24 01:45 104 24 110/58 (75) 99 112/50 (70) LABS: Hematology Labs: Test 10/07/24 03:52 Range/Units White Blood Count 16.5 H 4.8-10.8 K/uL Red Blood Count 3.16 L 4.50-6.20 MIL/uL Hemoglobin 9.9 L 14.0-18.0 g/dL Hematocrit 30.3 L 42-54 % Mean Corpuscular Volume 95.9 79-99 fL Mean Corpuscular Hemoglobin 31.3 27.0-33.0 pg Mean Corpuscular Hemoglobin Concent 32.7 32.0-36.0 g/dL Red Cell Distribution Width 12.3 11.0-15.5 % Platelet Count 182 130-400 K/uL Mean Platelet Volume 10.6 H 7.5-10.5 fL Nucleated Red Blood Cells 0.1 0.0-0.19 % Chemistry Labs: Test 10/07/24 05:55 10/07/24 03:52 10/06/24 03:51 Range/Units Whole Blood Glucose 99 70-110 MG/DL Sodium Level 136 136-145 mmol/L Potassium Level 4.4 3.5-5.1 mmol/L Chloride Level 99 L 101-111 mmol/L Carbon Dioxide Level 33 H 21-32 mmol/L Blood Urea Nitrogen 14 7-18 mg/dL Creatinine 1.0 0.5-1.3 mg/dL Glomerular Filtration Rate Calc 81 >90 mL/min Random Glucose 103 70-105 mg/dL Total Calcium 8.5 8.5-10.1 mg/dL Magnesium Level 2.00 1.80-2.40 mg/dL Ionized Calcium 1.15 L 1.16-1.32 MMOL/L Phosphorus Level 5.0 H 2.5-4.9 mg/dL Coagulation Labs: Test 10/06/24 03:51 Range/Units Prothrombin Time 11.8 H 9.6-11.6 SEC Prothromb Time International Ratio 1.10 0.85-1.15 Activated Partial Thromboplast Time 32.2 26.3-35.5 SEC Fibrinogen 499 H 180-350 mg/dL DIAGNOSTICS / RADIOLOGY RESULTS: Signed PATIENT: BAR STEVE MR#: [id number] : 1955 SEX: M AGE: 69 LOCATION: 2BH ORDER 230 STATUS: ADM IN REPORT#: [id number] SERVICE 0400 REASON: s/p CABG ORDERING PHYSICIAN: ELIEZER FIERRO MD PROCEDURE: CXR1VW - CHEST 1VW CHEST 1VW HISTORY: Post CABG COMPARISON: 10/06/2024 FINDINGS: A frontal projection of the chest was obtained. Mild bilateral pulmonary infiltrates are seen may be related to mild pulmonary vascular congestion with possible superimposed pneumonitis. Poststernotomy changes are seen. The heart is enlarged. Degenerative changes of the thoracolumbar spine are present. All the lines and tubes are again seen in place. Degenerative changes are seen. IMPRESSION: 1. Mild bilateral pulmonary infiltrates are seen may be related to mild pulmonary vascular congestion with possible superimposed pneumonitis. DICTATED BY: TIM CORTEZ MD DATE: 10/07/24912 ELECTRONICALLY SIGNED BY: TIM CORTEZ MD DATE: 10/07/[address] surgeon recommendations Follow cardiology recommendations Multimodal pain management Monitoring H&H Monitor chest tube output Chest x-ray in the morning Transfuse if absolutely necessary to keep hemoglobin above 8 Maintain O2 sats greater than 92% Glycemic control with goal of 80-180 Referral for cardiac rehabilitation Aspiration precautions CPAP at night Continue IS currently pulling 1 L Wean nitroglycerin drip. NEURO: Minimize central acting medications as possible. Fall Precautions. Well lighted room through the day and minimize interruptions through the night to prevent acute delirium. PULMONARY: Supplemental 02 as needed Titrate Fio2 to keep Spo2 > or = 90% DuoNebs and CPT as needed IS hourly while awake for pulmonary hygiene Out of bed to chair as tolerated VAP Bundle CARDIOVASCULAR: Follow hemodynamics. Titrate vasopressor to keep MAP >65 or systolic blood pressure >95mmHg CV surgery has been consulted per cardiology recommendations DRIPS: None LINES: Right IJ Chest tube Arterial line GI & NUTRITION: Continue nutritional support Aspirations precautions Prokinetic agents and laxatives as needed KIDNEYS & ELECTROLYTES: Strict monitoring of intake and output Daily weights Avoid nephrotoxic agents Monitor electrolytes and replace as needed Goal urine output of 30mL/hr or 0.5mL/kg/hr ENDOCRINE: Maintain blood glucose between 100-180 at all times. Insulin sliding scale for blood glucose management INFECTIOUS DISEASE: Trend temperature. Haddad-culture if febrile. Micro: NA Antibiotics: NA HEMATOLOGY & COAGULATION: Monitor H&H. Keep Hgb > 7 Transfuse 1 unit of PRBC for Hgb < 7 Transfuse 1 pack of platelets of platelets < 20, 000 Watch for any signs and symptoms of bleeding SKIN: Pressure ulcer prevention per facility protocol Rehab: PT/OT Prophylaxis: GI: Protonix DVT: MADAN Arreguin per CV surgery Code Status: Full Resuscitation Disposition: ICU Other: Total patient care time exceeds 35 minutes excluding all procedures. Case was discussed and seen with my supervising physician. The above plan was formulated and agreed upon. SCOOTER DOMINGUEZ [facility] Oct 07, 2024 09:46
[2024-10-07] MEDS: INSULIN humuLIN R 100 UNIT/ML 3ML SQ SCH (11:02)
[2024-10-07] MEDS: furoSEMIDE 20MG VIAL IV SCH (17:27)
[2024-10-07] MEDS: FAMOTIDINE 20MG TAB PO SCH (20:19)
[2024-10-08] VITALS (38 sets, daily range): BP systolic 98–145; BP diastolic 45–84; PULSE 80–103; RESP 10–26; TEMP 98–99.3; O2SAT 95–100
[2024-10-08 04:15] LABS: HEMATOCRIT 30.6 % (42-54); MEAN CORPUSCULAR HEMOGLOBIN 31.6 pg (27.0-33.0); MEAN CORPUSCULAR HGB CONC 33.7 g/dL (32.0-36.0); MEAN CORPUSCULAR VOLUME 93.9 fL (79-99); RED BLOOD CELL COUNT(AUTO) 3.26 MIL/uL (4.50-6.20); RED CELL DISTRIBUTION WIDTH 12.1 % (11.0-15.5); WHITE BLOOD COUNT (AUTO) 14.2 K/uL (4.8-10.8)
[2024-10-08 04:35] LABS: CREATININE 0.9 mg/dL (0.5-1.3); POTASSIUM 3.9 mmol/L (3.5-5.1)
[2024-10-08] MEDS: traMADol HCL 50 MG TABLET PO PRN (05:04)
--- NOTE | 2024-10-08 07:21 | PN ---
[facility] PROGRESS NOTE Date Patient Seen: Oct 08, 2024 Time of Visit: 07:18 Interval History: [ S/p CABG. CXR with improvement in pulmonary congestion ] Physical Examination: GENERAL: [No acute distress.] HEAD: [Normal with no signs of head trauma.] EYES: [PERRLA, EOMI, conjunctiva and sclera normal.] ENT: [Hearing grossly intact, normal oropharynx.] NECK: [Supple without JVD. There is no tenderness, lymphadenopathy, or masses. No thyromegaly. Normal carotid upstrokes without bruits.] LUNGS: [Clear breath sounds bilaterally. There are right basilar rales one third of the way up the chest. No wheezes, or rhonchi.] HEART: [Normal rate and rhythm. Normal S1 and S2 without mumurs, gallop or rub.] VASC: [Peripheral pulses +2 bilaterally.] ABD: [Bowel sounds normal, soft, nontender, no masses, no organomegaly. No audible bruits.] : [Not examined] LYMPH: [No lymphadenopathy noted.] EXT: [No clubbing, cyanosis or edema.] SKIN: [No rashes or lesions noted.] NEURO: [Awake, alert, and oriented x3. No focal sensory or strength deficits noted.] Laboratory: [ ] Hematology Labs: Test 10/08/24 03:45 Range/Units White Blood Count 14.2 H 4.8-10.8 K/uL Red Blood Count 3.26 L 4.50-6.20 MIL/uL Hemoglobin 10.3 L 14.0-18.0 g/dL Hematocrit 30.6 L 42-54 % Mean Corpuscular Volume 93.9 79-99 fL Mean Corpuscular Hemoglobin 31.6 27.0-33.0 pg Mean Corpuscular Hemoglobin Concent 33.7 32.0-36.0 g/dL Red Cell Distribution Width 12.1 11.0-15.5 % Platelet Count 197 130-400 K/uL Mean Platelet Volume 10.3 7.5-10.5 fL Nucleated Red Blood Cells 0.0 0.0-0.19 % Chemistry Labs: Test 10/08/24 03:45 10/07/24 20:11 10/07/24 03:52 Range/Units Sodium Level 132 L 136-145 mmol/L Potassium Level 3.9 3.5-5.1 mmol/L Chloride Level 95 L 101-111 mmol/L Carbon Dioxide Level 32 21-32 mmol/L Blood Urea Nitrogen 13 7-18 mg/dL Creatinine 0.9 0.5-1.3 mg/dL Glomerular Filtration Rate Calc 92 >90 mL/min Random Glucose 114 H 70-105 mg/dL Total Calcium 8.2 L 8.5-10.1 mg/dL Whole Blood Glucose 137 H 70-110 MG/DL Magnesium Level 2.00 1.80-2.40 mg/dL Diagnostics / Radiology: [Copy/Paste Echos/Imaging Report here] Impression and Plan: [NSTEMI Pulmonary vascular congestion Epigastric pain Leukocytosis Acute renal failure secondary to ATN from dehydration Electrolyte derangement (hyponatremia, hypokalemia) Hyperglycemia in setting of type 2 diabetes mellitus Leukocytosis without left band shift Chronic problem list: diabetes mellitus, hypertension, gastritis, former light smoker] Plan: [#NSTEMI -Trop [id number] -ECG with biphasic T wave v2 and v3, TWI v4-v-6 -2d echo normal LVEF and no valvular pathology -c/w aspirin 81 mg qd, statin -underwent LHC with Dr Lamb 09/29: diffusely calcific long 80% stenosis in the mid LAD, spontaneously reperfused prior to angiography with probable early washout with very high 2nd troponin of 47,283. -Severe three-vessel coronary artery disease with 80% diagonal one stenosis, 70% proximal circumflex stenosis, 90% OM1 stenosis and chronically occluded mid RCA with PDA and PLV branches filling by kace-[id number] collaterals. -Evidence of old inferior wall [place] by EKG with associated occluded RCA consistent with silent old inferior wall [place]. -S/p CABG, was not able to bypass the R PDA due to being a small vessel -10/07 CXR with pulmonary edema, gave lasix 40 mg IV x1 10/07. 10/08 changed IV las ix 20 mg q12h to po - metoprolol tartrate 25 mg bid Ashley Alexis MD ] ASHLEY ALEXIS MD Oct 08, 2024 07:21
[2024-10-08] MEDS: furoSEMIDE 20 MG TABLET PO SCH (08:53)
[2024-10-08] MEDS: ENOXAPARIN SODIUM 30 MG/0.3 ML SQ SCH (08:54)
--- NOTE | 2024-10-08 09:04 | PN ---
[facility] PROGRESS NOTE Date Patient Seen: Oct 08, 2024 Time of Visit: 09:04 Supervising Physician: Gallo Parr MD Primary Care Physician: Sheyla Cedeno @ [facility] Outpatient Specialists: Inpatient Consults: Cardiology PROBLEM LIST: Off-pump CABG x 2, ELIZONDO to LAD, reverse saphenous vein graft to oblique marginal on 10/05/24 Dr Stevan Thomas STEMI-- troponin is 221 peaked to 47K, EKG No ST elevation- HEART SCORE FOR MACE 5 pts- moderate- risk of MACE 12-16%. S/P LHC with finding of MV CAD: mid LAD, diag, OM, and RCA occlusion on 09/29/24 Chest pain secondary to above Obstructed sleep apnea- witnessed here during hospital stay Acute renal failure secondary to ATN from dehydration Gastritis versus duodenal ulcer flare from spicy food ( patient likes to eat habanero daily) Hyponatremia Suspect obstructive sleep apnea Hyperglycemia in setting of type 2 diabetes mellitus Pulmonary vascular congestion- likely from acute CHF preserved EF Leukocytosis without left band shift Obesity BMI 32 History of diabetes mellitus, hypertension, gastritis, former light smoker INTERVAL HISTORY: Patient came to the hospital yesterday with substernal chest pain. Patient feels burning sensation in the chest 3 hours after he ate habanero. He admits eating spicy food on a daily basis. Patient has history of gastritis not on any PPI. Patient denies any history of cardiac problem other than hypertension. He has seen Dr. Gotti as outpatient for cardiac clearance. His troponin was 220 when he came in and we are trending this. We will obtain EKG. At this time patient is on heparin drip per ACS protocol. Aspirin and statin has been started. Obtain Cardiology clearance. Check BNP. Echocardiogram is pending. In the meantime, likely this gastric burning was from gastritis versus duodenal ulcer. We will start patient with GI cocktail. We will start him also on Carafate. 09/30 patient had remarkable troponin elevation up to 47 K yesterday from 220. This morning patient is upgraded to ICU secondary to persistent chest pain, he was started on nitroglycerin drip. Patient had undergone a left heart catheterization yesterday with finding of multivessel coronary artery disease, pending CV surgery recommendations for coronary artery bypass graft surgery. Patient remains on heparin drip for ACS. Continue with p.r.n. pain medication. bowel regimen. In the meantime patient is NPO pending CV surgery recommendation. 10/01 patient is awake alert and oriented x3 no acute chest pain but remains on nitroglycerin drip. Patient is was on heparin drip. Vital signs blood pressure 119/68 pulse is 87. WBC is 11 this is down from 11.3 and chemistry is sodium 131 this is down from 133 yesterday. Creatinine is 1.1 this is stable. Glucose 127. Magnesium is 1.[address] electrolyte protocol. Pending CABG next week. 10/02 patient is awake alert oriented x3 no chest pain at this time. Patient remains on nitroglycerin drip titration. According to in tartrate for chest pain. This morning lab is unremarkable. Blood pressure 118/68 heart rate is 89. T-max is 98.4. Echocardiogram with LVEF of 35%. Patient is on aspirin and statin already. Consider beta-deb. Diuretic as needed. Patient is reported to have been hypoxic at night at sleep time. Patient reported that he has sleep apnea but never get tested. We will start patient on low CPAP at night with 8 cm Hg. We will need outpatient sleep apnea study. Patient is pending CV surgery for CABG. 10/03 patient is awake alert oriented x3 , no acute distress. Patient was tolerating CPAP overnight for 2 hours. Continued at nighttime. At this time, we can teach him how to use incentive spirometry. He remains on 2 L nasal cannula with sats 99%. Continue to wean down as tolerated. He has holiday lab this morning , we can check lab tomorrow morning. Otherwise continue with nitroglycerin drip and heparin drip. Patient has been started on beta-deb. 10/04 patient is awake alert oriented x3, no acute distress, conversing with family, vital signs blood pressure 117/71 map is 86 heart rate is 77. Respiratory rate is 18. He is on 2 L nasal cannula with sats 100%. He was able to be on CPAP for 5 hours overnight. Chemistry sodium 134 potassium 4.2 chloride 100 bicarb 26 BUN 12 creatinine is 1.0. Albumin is 3.2. Patient has been on heparin drip for ACS and nitroglycerin drip for chest pain. Continue ICU care given being on NTG drip. Continue to follow recommendation from CV team for CABG tomorrow. 10/05 patient is status post CABG x2 today. He remains intubated on SIMV 10/650/5/50%. He is postanesthesia care very drowsy but following very simple commands. We are still in the fast track extubation plan. Otherwise, His vital signs is stable, supported with vasopressor of epinephrine and Levophed drip , at the moment he is hyperdynamic. Continue to wean down vasopressors as tolerated to keep map greater than 65. Patient also is on insulin drip post CABG per protocol. His ABG is 7.38 /46 /107/26 O2 sat is 96%. Chest tube x2 in place , [place] catheter in place. Right groin sheath in place. Continue to monitor input and output closely. Follow post CABG protocol. Lab and Chest xray in AM. 10/06-patient is awake alert and oriented x3, he was extubated yesterday around 1844 currently on 2 L via nasal cannula saturating 99%, off pressors blood pressure 159/74 heart rate 108 respiratory rate 16, and has been afebrile with a T-max of 99 and T low of 96.8 in the last 24 hours. Urine output 1.6 L, chest tube output 410 mL in the last 24 hours. WBCs 16.6 H&H 11.4/34.5 with a platelet count of [id number]. Chemistries sodium 140 potassium 4.1 chloride 105 carbon dioxide 32 BUN 14 creatinine 1.0 GFR 81. Chest x-ray with improve in vascular congestion. Chest tube in place, right IJ appears to be in place. Post sternotomy changes. No pneumothorax, noted pending official radiology read. 10/07-patient is awake alert and oriented x3 sitting up in recliner chair. Denies any chest pain, palpitation, shortness of breath, nausea, vomiting or chills. He reports his pain is well controlled. He has been afebrile with a T- max of 99 heart rate in the 90s respiratory rate of 19 unlabored saturating 98% on room air. Blood pressure 147/61, he continues on nitroglycerin drip that was started overnight for hypertension weaning down currently at 15 micrograms/minute. WBCs trending down 16.5 today H&H slightly lower today 9.9/30.3 platelet count is normal. Sodium 136 potassium 4.4 CO2 33, BUN 14 creatinine 1.0 GFR of 81. Per RN patient did not tolerate his CPAP well overnight. As per patient it did not function well overnight we will have RT take a look if nonfunctioning we can try our in-house CPAP machine. Otherwise patient has been having good urine output of 2.5 L in the last 24 hours with a balance of -1.6 he continues on Lasix 20 mg IV q.12 hours. Chest x-ray noted to have increased pulmonary vascular congestion. Chest tube drained 130 mL in the last 24 hours. 10/08-patient is awake alert and oriented x3 hemodynamically stable. Continues off pressors chest x-ray has improved. He continues working with his IS pulling 1.2 L. Good urine output of 1.79 L with a balance of-1 L. chest tube has been removed. [place] catheter to be removed today. White count improving 14.2 today H&H stable 10.3/30.6 with a platelet count of [id number], sodium 132, potassium 3.9, CO2 32 BUN 13 creatinine 0.9 with a GFR of 92. He is tolerating clear liquid diet we will advance as tolerated. Patient's family member had concerns regarding CPAP machine instructed her reminded her as had recommended to follow up in one week for sleep study. Both patient and family member verbalized understanding. REVIEW OF SYSTEMS: Const: [No fever, fatigue, or weight changes] Eyes:[ no recent vision problems] ENT: [No congestion, ear pain, or sore throat] C/V: [no chest pain, palpitations or edema] reports pain to incision well- controlled. Resp: [No cough, congestion, wheezing , or Shortness of breath] GI: [No abdominal pain, nausea, vomiting, constipation, or diarrhea] : [No incontinence of or dyuria] M/S: [No joint or pain swelling] Skin: [No rash] Neuro: [no headache, focal numbness, or weakness, dizziness or seizures] Psych: [no depression or anxiety] Heme: [no abnormal bruising or bleeding] Lymph: [no swollen glands] PHYSICAL EXAM: GENERAL: Alert, weak, awake oriented x 3 HEENT: EOMI, Sclera non icteric, moist mucosa NECK: Supple, no JVD, trachea midline LUNGS: Clear breath sounds bilaterally. No wheezes HEART: Regular rate and rhythm. Normal S1 and S2, without murmurs ABD: Abdomen soft, nontender. Bowel sounds present EXT: No clubbing cyanosis or edema, right femoral sheath still in place +1 bilateral pedal pulse NEURO: Alert and oriented X3, follows commands Vital Signs (last 8hr) Date Time Temp Pulse Resp B/P (MAP) Pulse Ox O2 Delivery O2 Flow Rate FiO2 10/08/24 07:10 92 18 N/Cannula Low lpm 1.0 10/08/24 06:00 94 23 131/74 100 Room Air 10/08/24 05:00 98 20 145/73 99 Room Air 10/08/24 04:00 89 23 115/58 95 Room Air 10/08/24 04:00 98 Nasal Cannula* 1 10/08/24 03:57 93 22 28 10/08/24 03:00 91 21 118/70 94 Room Air 10/08/24 02:00 93 21 120/65 99 Room Air LABS: Hematology Labs: Test 10/08/24 03:45 Range/Units White Blood Count 14.2 H 4.8-10.8 K/uL Red Blood Count 3.26 L 4.50-6.20 MIL/uL Hemoglobin 10.3 L 14.0-18.0 g/dL Hematocrit 30.6 L 42-54 % Mean Corpuscular Volume 93.9 79-99 fL Mean Corpuscular Hemoglobin 31.6 27.0-33.0 pg Mean Corpuscular Hemoglobin Concent 33.7 32.0-36.0 g/dL Red Cell Distribution Width 12.1 11.0-15.5 % Platelet Count 197 130-400 K/uL Mean Platelet Volume 10.3 7.5-10.5 fL Nucleated Red Blood Cells 0.0 0.0-0.19 % Chemistry Labs: Test 10/08/24 03:45 10/07/24 20:11 10/07/24 03:52 Range/Units Sodium Level 132 L 136-145 mmol/L Potassium Level 3.9 3.5-5.1 mmol/L Chloride Level 95 L 101-111 mmol/L Carbon Dioxide Level 32 21-32 mmol/L Blood Urea Nitrogen 13 7-18 mg/dL Creatinine 0.9 0.5-1.3 mg/dL Glomerular Filtration Rate Calc 92 >90 mL/min Random Glucose 114 H 70-105 mg/dL Total Calcium 8.2 L 8.5-10.1 mg/dL Whole Blood Glucose 137 H 70-110 MG/DL Magnesium Level 2.00 1.80-2.40 mg/dL DIAGNOSTICS / RADIOLOGY RESULTS: IMAGING REPORT Signed PATIENT: BAR STEVE MR#: [id number] : 1955 SEX: M AGE: 69 LOCATION: 2BH ORDER 2300 STATUS: ADM IN REPORT#: [id number] SERVICE 0600 REASON: chf ORDERING PHYSICIAN: KATRINA HUANG MD PROCEDURE: CXR1VW - CHEST 1VW CHEST 1VW HISTORY: CHF COMPARISON: 10/07/2024 FINDINGS: A frontal projection of the chest was obtained. Prominent interstitial markings are seen with possible superimposed infiltrates. Poststernotomy changes are seen. The heart is enlarged. Degenerative changes of the thoracolumbar spine are present. No evidence of aortic calcification is seen. IMPRESSION: 1. Prominent interstitial markings are seen with possible superimposed infiltrates. DICTATED BY: TIM CORTEZ MD DATE: 10/08/24954 ELECTRONICALLY SIGNED BY: TIM CORTEZ MD DATE: 10/08/[address] surgeon recommendations Follow cardiology recommendations Multimodal pain management Monitoring H&H Monitor chest tube output Chest x-ray in the morning Transfuse if absolutely necessary to keep hemoglobin above 8 Maintain O2 sats greater than 92% Glycemic control with goal of 80-180 Referral for cardiac rehabilitation Aspiration precautions CPAP at night Continue IS currently pulling 1 L Wean nitroglycerin drip. -Arrange outpatient pulmonology referral for sleep study, PFT and follow-up management upon discharge NEURO: Minimize central acting medications as possible. Fall Precautions. Well lighted room through the day and minimize interruptions through the night to prevent acute delirium. PULMONARY: Supplemental 02 as needed Titrate Fio2 to keep Spo2 > or = 90% DuoNebs and CPT as needed IS hourly while awake for pulmonary hygiene Out of bed to chair as tolerated VAP Bundle CARDIOVASCULAR: Follow hemodynamics. Titrate vasopressor to keep MAP >65 or systolic blood pressure >95mmHg CV surgery has been consulted per cardiology recommendations DRIPS: None LINES: Right IJ GI & NUTRITION: Continue nutritional support Aspirations precautions Prokinetic agents and laxatives as needed KIDNEYS & ELECTROLYTES: Strict monitoring of intake and output Daily weights Avoid nephrotoxic agents Monitor electrolytes and replace as needed Goal urine output of 30mL/hr or 0.5mL/kg/hr ENDOCRINE: Maintain blood glucose between 100-180 at all times. Insulin sliding scale for blood glucose management INFECTIOUS DISEASE: Trend temperature. Haddad-culture if febrile. Micro: NA Antibiotics: NA HEMATOLOGY & COAGULATION: Monitor H&H. Keep Hgb > 7 Transfuse 1 unit of PRBC for Hgb < 7 Transfuse 1 pack of platelets of platelets < 20, 000 Watch for any signs and symptoms of bleeding SKIN: Pressure ulcer prevention per facility protocol Rehab: PT/OT Prophylaxis: GI: Protonix DVT: MADAN Arreguin per CV surgery Code Status: Full Resuscitation Disposition: ICU Other: Total patient care time exceeds 35 minutes excluding all procedures. Case was discussed and seen with my supervising physician. The above plan was formulated and agreed upon. SCOOTER DOMINGUEZ Oct 08, 2024 09:04
--- NOTE | 2024-10-08 09:58 | HMCIMG ---
CHEST 1VW HISTORY: CHF COMPARISON: 10/07/2024 FINDINGS: A frontal projection of the chest was obtained. Prominent interstitial markings are seen with possible superimposed infiltrates. Poststernotomy changes are seen. The heart is enlarged. Degenerative changes of the thoracolumbar spine are present. No evidence of aortic calcification is seen. IMPRESSION: 1. Prominent interstitial markings are seen with possible superimposed infiltrates.
[2024-10-09] VITALS (25 sets, daily range): BP systolic 100–139; BP diastolic 50–87; PULSE 80–98; RESP 15–28; TEMP 98.6–99.3; O2SAT 96–99
[2024-10-09 03:57] LABS: HEMATOCRIT 30.8 % (42-54); MEAN CORPUSCULAR HEMOGLOBIN 31.4 pg (27.0-33.0); MEAN CORPUSCULAR HGB CONC 33.8 g/dL (32.0-36.0); MEAN CORPUSCULAR VOLUME 93.1 fL (79-99); RED BLOOD CELL COUNT(AUTO) 3.31 MIL/uL (4.50-6.20); RED CELL DISTRIBUTION WIDTH 11.9 % (11.0-15.5); WHITE BLOOD COUNT (AUTO) 10.4 K/uL (4.8-10.8)
[2024-10-09 04:04] LABS: CREATININE 0.9 mg/dL (0.5-1.3); POTASSIUM 3.5 mmol/L (3.5-5.1)
--- NOTE | 2024-10-09 07:27 | PN ---
[facility] CARDIOLOGY PROGRESS NOTE Date Patient Seen: Oct 09, 2024 Time of Visit: 07:26 Interval History: [ S/p CABG. No events overnight.] Physical Examination: GENERAL: [No acute distress.] HEAD: [Normal with no signs of head trauma.] EYES: [PERRLA, EOMI, conjunctiva and sclera normal.] ENT: [Hearing grossly intact, normal oropharynx.] NECK: [Supple without JVD. There is no tenderness, lymphadenopathy, or masses. No thyromegaly. Normal carotid upstrokes without bruits.] LUNGS: [Clear breath sounds bilaterally. There are right basilar rales one third of the way up the chest. No wheezes, or rhonchi.] HEART: [Normal rate and rhythm. Normal S1 and S2 without mumurs, gallop or rub.] VASC: [Peripheral pulses +2 bilaterally.] ABD: [Bowel sounds normal, soft, nontender, no masses, no organomegaly. No audible bruits.] : [Not examined] LYMPH: [No lymphadenopathy noted.] EXT: [No clubbing, cyanosis or edema.] SKIN: [No rashes or lesions noted.] NEURO: [Awake, alert, and oriented x3. No focal sensory or strength deficits noted.] Laboratory: [ ] Hematology Labs: Test 10/09/24 03:21 Range/Units White Blood Count 10.4 # 4.8-10.8 K/uL Red Blood Count 3.31 L 4.50-6.20 MIL/uL Hemoglobin 10.4 L 14.0-18.0 g/dL Hematocrit 30.8 L 42-54 % Mean Corpuscular Volume 93.1 79-99 fL Mean Corpuscular Hemoglobin 31.4 27.0-33.0 pg Mean Corpuscular Hemoglobin Concent 33.8 32.0-36.0 g/dL Red Cell Distribution Width 11.9 11.0-15.5 % Platelet Count 258 # 130-400 K/uL Mean Platelet Volume 10.5 7.5-10.5 fL Nucleated Red Blood Cells 0.0 0.0-0.19 % Chemistry Labs: Test 10/09/24 03:21 10/08/24 20:37 10/08/24 03:45 Range/Units Sodium Level 134 L 136-145 mmol/L Potassium Level 3.5 3.5-5.1 mmol/L Chloride Level 96 L 101-111 mmol/L Carbon Dioxide Level 33 H 21-32 mmol/L Blood Urea Nitrogen 13 7-18 mg/dL Creatinine 0.9 0.5-1.3 mg/dL Glomerular Filtration Rate Calc 92 >90 mL/min Random Glucose 126 H 70-105 mg/dL Total Calcium 8.3 L 8.5-10.1 mg/dL Whole Blood Glucose 191 #H 70-110 MG/DL Magnesium Level 1.70 1.6-2.6 mg/dL Diagnostics / Radiology: [Copy/Paste Echos/Imaging Report here] Impression and Plan: [NSTEMI Pulmonary vascular congestion Epigastric pain Leukocytosis Acute renal failure secondary to ATN from dehydration Electrolyte derangement (hyponatremia, hypokalemia) Hyperglycemia in setting of type 2 diabetes mellitus Leukocytosis without left band shift Chronic problem list: diabetes mellitus, hypertension, gastritis, former light smoker] Plan: [#NSTEMI -Trop [id number] -ECG with biphasic T wave v2 and v3, TWI v4-v-6 -2d echo normal LVEF and no valvular pathology -c/w aspirin 81 mg qd, statin -underwent LHC with Dr Lamb 09/29: diffusely calcific long 80% stenosis in the mid LAD, spontaneously reperfused prior to angiography with probable early washout with very high 2nd troponin of 47,283. -Severe three-vessel coronary artery disease with 80% diagonal one stenosis, 70% proximal circumflex stenosis, 90% OM1 stenosis and chronically occluded mid RCA with PDA and PLV branches filling by [id number] collaterals. 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 -S/p CABG, was not able to bypass the R PDA due to being a small vessel -10/07 CXR with pulmonary edema, gave lasix 40 mg IV x1 10/07. 10/08 changed IV lasix 20 mg q12h to po - metoprolol tartrate 25 mg bid Ashley Alexis MD ] ASHLEY ALEXIS MD Oct 09, 2024 07:27
[2024-10-09] MEDS: PoTASSium chloRIDE 20MEQ ER 20 MEQ ERTAB PO PRN (07:57)
--- NOTE | 2024-10-09 11:50 | PN ---
[facility] PROGRESS NOTE Date Patient Seen: Oct 09, 2024 Time of Visit: 11:50 Supervising Physician: Gallo Parr MD Primary Care Physician: Sheyla Cedeno @ [facility] Outpatient Specialists: Inpatient Consults: Cardiology PROBLEM LIST: Off-pump CABG x 2, ELIZONDO to LAD, reverse saphenous vein graft to oblique marginal on 10/05/24 Dr Stevan Thomas STEMI-- troponin is 221 peaked to 47K, EKG No ST elevation- HEART SCORE FOR MACE 5 pts- moderate- risk of MACE 12-16%. S/P LHC with finding of MV CAD: mid LAD, diag, OM, and RCA occlusion on 09/29/24 Chest pain secondary to above Obstructed sleep apnea- witnessed here during hospital stay Acute renal failure secondary to ATN from dehydration Gastritis versus duodenal ulcer flare from spicy food ( patient likes to eat habanero daily) Hyponatremia Suspect obstructive sleep apnea Hyperglycemia in setting of type 2 diabetes mellitus Pulmonary vascular congestion- likely from acute CHF preserved EF Leukocytosis without left band shift Obesity BMI 32 History of diabetes mellitus, hypertension, gastritis, former light smoker INTERVAL HISTORY: Patient came to the hospital yesterday with substernal chest pain. Patient feels burning sensation in the chest 3 hours after he ate habanero. He admits eating spicy food on a daily basis. Patient has history of gastritis not on any PPI. Patient denies any history of cardiac problem other than hypertension. He has seen Dr. Gotti as outpatient for cardiac clearance. His troponin was 220 when he came in and we are trending this. We will obtain EKG. At this time patient is on heparin drip per ACS protocol. Aspirin and statin has been started. Obtain Cardiology clearance. Check BNP. Echocardiogram is pending. In the meantime, likely this gastric burning was from gastritis versus duodenal ulcer. We will start patient with GI cocktail. We will start him also on Carafate. 09/30 patient had remarkable troponin elevation up to 47 K yesterday from 220. This morning patient is upgraded to ICU secondary to persistent chest pain, he was started on nitroglycerin drip. Patient had undergone a left heart catheterization yesterday with finding of multivessel coronary artery disease, pending CV surgery recommendations for coronary artery bypass graft surgery. Patient remains on heparin drip for ACS. Continue with p.r.n. pain medication. bowel regimen. In the meantime patient is NPO pending CV surgery recommendation. 10/01 patient is awake alert and oriented x3 no acute chest pain but remains on nitroglycerin drip. Patient is was on heparin drip. Vital signs blood pressure 119/68 pulse is 87. WBC is 11 this is down from 11.3 and chemistry is sodium 131 this is down from 133 yesterday. Creatinine is 1.1 this is stable. Glucose 127. Magnesium is 1.[address] electrolyte protocol. Pending CABG next week. 10/02 patient is awake alert oriented x3 no chest pain at this time. Patient remains on nitroglycerin drip titration. According to in tartrate for chest pain. This morning lab is unremarkable. Blood pressure 118/68 heart rate is 89. T-max is 98.4. Echocardiogram with LVEF of 35%. Patient is on aspirin and statin already. Consider beta-deb. Diuretic as needed. Patient is reported to have been hypoxic at night at sleep time. Patient reported that he has sleep apnea but never get tested. We will start patient on low CPAP at night with 8 cm Hg. We will need outpatient sleep apnea study. Patient is pending CV surgery for CABG. 10/03 patient is awake alert oriented x3 , no acute distress. Patient was tolerating CPAP overnight for 2 hours. Continued at nighttime. At this time, we can teach him how to use incentive spirometry. He remains on 2 L nasal cannula with sats 99%. Continue to wean down as tolerated. He has holiday lab this morning , we can check lab tomorrow morning. Otherwise continue with nitroglycerin drip and heparin drip. Patient has been started on beta-deb. 10/04 patient is awake alert oriented x3, no acute distress, conversing with family, vital signs blood pressure 117/71 map is 86 heart rate is 77. Respiratory rate is 18. He is on 2 L nasal cannula with sats 100%. He was able to be on CPAP for 5 hours overnight. Chemistry sodium 134 potassium 4.2 chloride 100 bicarb 26 BUN 12 creatinine is 1.0. Albumin is 3.2. Patient has been on heparin drip for ACS and nitroglycerin drip for chest pain. Continue ICU care given being on NTG drip. Continue to follow recommendation from CV team for CABG tomorrow. 10/05 patient is status post CABG x2 today. He remains intubated on SIMV 10/650/5/50%. He is postanesthesia care very drowsy but following very simple commands. We are still in the fast track extubation plan. Otherwise, His vital signs is stable, supported with vasopressor of epinephrine and Levophed drip , at the moment he is hyperdynamic. Continue to wean down vasopressors as tolerated to keep map greater than 65. Patient also is on insulin drip post CABG per protocol. His ABG is 7.38 /46 /107/26 O2 sat is 96%. Chest tube x2 in place , [place] catheter in place. Right groin sheath in place. Continue to monitor input and output closely. Follow post CABG protocol. Lab and Chest xray in AM. 10/06-patient is awake alert and oriented x3, he was extubated yesterday around 1844 currently on 2 L via nasal cannula saturating 99%, off pressors blood pressure 159/74 heart rate 108 respiratory rate 16, and has been afebrile with a T-max of 99 and T low of 96.8 in the last 24 hours. Urine output 1.6 L, chest tube output 410 mL in the last 24 hours. WBCs 16.6 H&H 11.4/34.5 with a platelet count of [id number]. Chemistries sodium 140 potassium 4.1 chloride 105 carbon dioxide 32 BUN 14 creatinine 1.0 GFR 81. Chest x-ray with improve in vascular congestion. Chest tube in place, right IJ appears to be in place. Post sternotomy changes. No pneumothorax, noted pending official radiology read. 10/07-patient is awake alert and oriented x3 sitting up in recliner chair. Denies any chest pain, palpitation, shortness of breath, nausea, vomiting or chills. He reports his pain is well controlled. He has been afebrile with a T- max of 99 heart rate in the 90s respiratory rate of 19 unlabored saturating 98% on room air. Blood pressure 147/61, he continues on nitroglycerin drip that was started overnight for hypertension weaning down currently at 15 micrograms/minute. WBCs trending down 16.5 today H&H slightly lower today 9.9/30.3 platelet count is normal. Sodium 136 potassium 4.4 CO2 33, BUN 14 creatinine 1.0 GFR of 81. Per RN patient did not tolerate his CPAP well overnight. As per patient it did not function well overnight we will have RT take a look if nonfunctioning we can try our in-house CPAP machine. Otherwise patient has been having good urine output of 2.5 L in the last 24 hours with a balance of -1.6 he continues on Lasix 20 mg IV q.12 hours. Chest x-ray noted to have increased pulmonary vascular congestion. Chest tube drained 130 mL in the last 24 hours. 10/08-patient is awake alert and oriented x3 hemodynamically stable. Continues off pressors chest x-ray has improved. He continues working with his IS pulling 1.2 L. Good urine output of 1.79 L with a balance of-1 L. chest tube has been removed. [place] catheter to be removed today. White count improving 14.2 today H&H stable 10.3/30.6 with a platelet count of [id number], sodium 132, potassium 3.9, CO2 32 BUN 13 creatinine 0.9 with a GFR of 92. He is tolerating clear liquid diet we will advance as tolerated. Patient's family member had concerns regarding CPAP machine instructed her reminded her as had recommended to follow up in one week for sleep study. Both patient and family member verbalized understanding. 10/09- patient is awake alert and oriented x3 off pressors. chest tubes central line and [place] catheter has been removed. Patient denies any chest pain, shortness of breath or palpitations. He reports he is feeling better. He co ntinues working on IS pulling 1.2 L. He is hemodynamically stable heart rate in the 80s. Patient is in no apparent distress respiratory rate of 18 saturating 97% on room air afebrile. WBCs 10.4 H&H 10.4/30.8, sodium 134 potassium 3.5 CO2 of 33 BUN of 13 creatinine of 0.9 and GFR 92 magnesium of 1.7 covered protocol. Urine output 3.6 L. Patient is pending case management arrangement for home health for physical therapy. REVIEW OF SYSTEMS: Const: [No fever, fatigue, or weight changes] Eyes:[ no recent vision problems] ENT: [No congestion, ear pain, or sore throat] C/V: [no chest pain, palpitations or edema] Resp: [No cough, congestion, wheezing , or Shortness of breath] GI: [No abdominal pain, nausea, vomiting, constipation, or diarrhea] : [No incontinence of or dyuria] M/S: [No joint or pain swelling] Skin: [No rash] Neuro: [no headache, focal numbness, or weakness, dizziness or seizures] Psych: [no depression or anxiety] Heme: [no abnormal bruising or bleeding] Lymph: [no swollen glands] PHYSICAL EXAM: GENERAL: Alert, weak, awake oriented x 3 HEENT: EOMI, Sclera non icteric, moist mucosa NECK: Supple, no JVD, trachea midline LUNGS: Clear breath sounds bilaterally. No wheezes HEART: Regular rate and rhythm. Normal S1 and S2, without murmurs ABD: Abdomen soft, nontender. Bowel sounds present EXT: No clubbing cyanosis or edema, right femoral sheath still in place +1 bilateral pedal pulse NEURO: Alert and oriented X3, follows commands Vital Signs (last 8hr) Date Time Temp Pulse Resp B/P (MAP) Pulse Ox O2 Delivery O2 Flow Rate FiO2 10/09/24 08:00 89 21 122/64 97 Room Air 10/09/24 08:00 99 Room Air* 0 21 10/09/24 07:30 98.8 89 21 114/67 94 Room Air 10/09/24 07:00 85 21 119/53 96 Room Air 10/09/24 06:41 99.3 10/09/24 06:00 88 24 125/70 96 Room Air 10/09/24 05:00 85 19 123/73 100 Room Air 10/09/24 04:00 84 22 118/73 97 Room Air 10/09/24 04:00 99 Nasal Cannula* 2 28 LABS: Hematology Labs: Test 10/09/24 03:21 Range/Units White Blood Count 10.4 # 4.8-10.8 K/uL Red Blood Count 3.31 L 4.50-6.20 MIL/uL Hemoglobin 10.4 L 14.0-18.0 g/dL Hematocrit 30.8 L 42-54 % Mean Corpuscular Volume 93.1 79-99 fL Mean Corpuscular Hemoglobin 31.4 27.0-33.0 pg Mean Corpuscular Hemoglobin Concent 33.8 32.0-36.0 g/dL Red Cell Distribution Width 11.9 11.0-15.5 % Platelet Count 258 # 130-400 K/uL Mean Platelet Volume 10.5 7.5-10.5 fL Nucleated Red Blood Cells 0.0 0.0-0.19 % Chemistry Labs: Test 10/09/24 11:01 10/09/24 03:21 10/08/24 03:45 Range/Units Whole Blood Glucose 258 H 70-110 MG/DL Sodium Level 134 L 136-145 mmol/L Potassium Level 3.5 3.5-5.1 mmol/L Chloride Level 96 L 101-111 mmol/L Carbon Dioxide Level 33 H 21-32 mmol/L Blood Urea Nitrogen 13 7-18 mg/dL Creatinine 0.9 0.5-1.3 mg/dL Glomerular Filtration Rate Calc 92 >90 mL/min Random Glucose 126 H 70-105 mg/dL Total Calcium 8.3 L 8.5-10.1 mg/dL Magnesium Level 1.70 1.6-2.6 mg/dL DIAGNOSTICS / RADIOLOGY RESULTS: IMAGING REPORT Signed PATIENT: BAR STEVE MR#: [id number] : 1955 SEX: M AGE: 69 LOCATION: [facility] ORDER 230 STATUS: ADM IN REPORT#: [id number] SERVICE [id number] REASON: s/p CABG ORDERING PHYSICIAN: ELIEZER FIERRO MD PROCEDURE: CXR1VW - CHEST 1VW CHEST 1VW HISTORY: Post CABG COMPARISON: 10/08/2024 FINDINGS: A frontal projection of the chest was obtained. Mild bilateral pulmonary infiltrates are seen may be related to mild pulmonary vascular congestion with possible superimposed pneumonitis. Poststernotomy changes are seen. The heart is enlarged. Degenerative changes of the thoracolumbar spine are present. Right venous catheter is again seen. Aortic calcifications are seen. IMPRESSION: 1. Mild bilateral pulmonary infiltrates are seen may be related to mild pulmonary vascular congestion with possible superimposed pneumonitis. DICTATED BY: TIM CORTEZ MD DATE: 10/09/247 ELECTRONICALLY SIGNED BY: TIM CORTEZ MD DATE: 10/09/[address] surgeon recommendations Follow cardiology recommendations Multimodal pain management Monitoring H&H Monitor chest tube output Chest x-ray in the morning improving. Transfuse if absolutely necessary to keep hemoglobin above 8 Maintain O2 sats greater than 92% Glycemic control with goal of 80-180 Referral for cardiac rehabilitation Aspiration precautions CPAP at night Continue IS Wean nitroglycerin drip. -Arrange outpatient pulmonology referral for sleep study, PFT and follow-up management upon discharge Case management to arrange physical therapy per home health once discharged. NEURO: Minimize central acting medications as possible. Fall Precautions. Well lighted room through the day and minimize interruptions through the night to prevent acute delirium. PULMONARY: Supplemental 02 as needed Titrate Fio2 to keep Spo2 > or = 90% DuoNebs and CPT as needed IS hourly while awake for pulmonary hygiene Out of bed to chair as tolerated VAP Bundle CARDIOVASCULAR: Follow hemodynamics. Titrate vasopressor to keep MAP >65 or systolic blood pressure >95mmHg CV surgery has been consulted per cardiology recommendations DRIPS: None LINES: Right IJ GI & NUTRITION: Continue nutritional support Aspirations precautions Prokinetic agents and laxatives as needed KIDNEYS & ELECTROLYTES: Strict monitoring of intake and output Daily weights Avoid nephrotoxic agents Monitor electrolytes and replace as needed Goal urine output of 30mL/hr or 0.5mL/kg/hr ENDOCRINE: Maintain blood glucose between 100-180 at all times. Insulin sliding scale for blood glucose management INFECTIOUS DISEASE: Trend temperature. Haddad-culture if febrile. Micro: NA Antibiotics: NA HEMATOLOGY & COAGULATION: Monitor H&H. Keep Hgb > 7 Transfuse 1 unit of PRBC for Hgb < 7 Transfuse 1 pack of platelets of platelets < 20, 000 Watch for any signs and symptoms of bleeding SKIN: Pressure ulcer prevention per facility protocol Rehab: PT/OT Prophylaxis: GI: Protonix DVT: MADAN Arreguin per CV surgery Code Status: Full Resuscitation Disposition: ICU Other: Total patient care time exceeds 35 minutes excluding all procedures. Case was discussed and seen with my supervising physician. The above plan was formulated and agreed upon. SCOOTER DOMINGUEZ [facility] Oct 09, 2024 11:50
--- NOTE | 2024-10-09 12:10 | HMCIMG ---
CHEST 1VW HISTORY: Post CABG COMPARISON: 10/08/2024 FINDINGS: A frontal projection of the chest was obtained. Mild bilateral pulmonary infiltrates are seen may be related to mild pulmonary vascular congestion with possible superimposed pneumonitis. Poststernotomy changes are seen. The heart is enlarged. Degenerative changes of the thoracolumbar spine are present. Right venous catheter is again seen. Aortic calcifications are seen. IMPRESSION: 1. Mild bilateral pulmonary infiltrates are seen may be related to mild pulmonary vascular congestion with possible superimposed pneumonitis.
[2024-10-09] MEDS: furoSEMIDE 40MG VIAL IV ONE (21:28)
[2024-10-10] VITALS (11 sets, daily range): BP systolic 105–133; BP diastolic 50–70; PULSE 74–98; RESP 18–26; TEMP 98.2–99.7; O2SAT 97–98
--- NOTE | 2024-10-10 00:45 | PN ---
SUBJECTIVE: A 69-year-old gentleman, status post CABG, coursing postoperative day #4. OBJECTIVE: GENERAL: Awake, alert, afebrile, neurologically intact. VITAL SIGNS: Stable as recorded in medical record. CHEST: Sternum stable. Incision sealed. LUNGS: Clear. EXTREMITIES: Warm and well perfused. No evidence of DVT, hematoma or infection. ASSESSMENT: Status post coronary artery bypass graft. PROBLEMS: * Coronary artery disease. Aspirin 81 mg, metoprolol 25 mg twice a day. * Fluid overload. Lasix 20 mg twice a day. * Dyslipidemia. Lipitor 40 mg once a day. PLAN: OT, PT, cardiac rehab, discharge planning. TID: [id number] RECEIPT: [id number]
[2024-10-10 04:08] LABS: HEMATOCRIT 33.6 % (42-54); MEAN CORPUSCULAR HGB CONC 33.3 g/dL (32.0-36.0); RED BLOOD CELL COUNT(AUTO) 3.5 MIL/uL (4.50-6.20); RED CELL DISTRIBUTION WIDTH 11.9 % (11.0-15.5); WHITE BLOOD COUNT (AUTO) 10.4 K/uL (4.8-10.8)
[2024-10-10 04:20] LABS: CREATININE 0.9 mg/dL (0.5-1.3); MAGNESIUM 1.9 mg/dL (1.80-2.40); POTASSIUM 3.7 mmol/L (3.5-5.1)
[2024-10-10] MEDS: PoTASSium chl 10% ELIXIR 20MEQ 20 MEQ/15 ML UDCUP PO PRN (04:36)
--- NOTE | 2024-10-10 08:15 | PN ---
Off-pump CABG x 2, ELIZONDO to LAD, reverse saphenous vein graft to oblique marginal on 10/05/24 Dr Calles Non STEMI-- troponin is 221 peaked to 47K, EKG No ST elevation- HEART SCORE FOR MACE 5 pts- moderate- risk of MACE 12-16%. S/P LHC with finding of MV CAD: mid LAD, diag, OM, and RCA occlusion on 09/29/24 Chest pain secondary to above Obstructed sleep apnea- witnessed here during hospital stay Acute renal failure secondary to ATN from dehydration Gastritis versus duodenal ulcer flare from spicy food ( patient likes to eat habanero daily) Hyponatremia Suspect obstructive sleep apnea Hyperglycemia in setting of type 2 diabetes mellitus Pulmonary vascular congestion- likely from acute CHF preserved EF Leukocytosis without left band shift Obesity BMI 32 History of diabetes mellitus, hypertension, gastritis, former light smoker Chest x-ray is clear. Patient offers no symptomatic complaints of any kind, expresses eagerness to go home. He has had Dr. Calles saw him and suggested today may be discharge day. Physical exam shows no JVD, no rales, no rhonchi, soft S1 and S2 but no murmur, normal rhythm, minimal edema Impression: Patient appears stable and improved after surgery and I concur with the plan for discharge. Plan: I will sign off, patient can follow-up with Dr. Ashley mcdaniels in 2-4 weeks. Vitals/Labs Vital Signs Date Time Temp Pulse Resp B/P (MAP) Pulse Ox O2 Delivery O2 Flow Rate FiO2 10/10/24 08:00 99.7 79 21 110/65 98 Room Air 10/10/24 07:34 21 10/09/24 19:30 0 Laboratory Tests 10/10/24 03:57 Medications Current Medications Lidocaine HCl 10 ml ONCE ONCE PO Last administered on 09/28/24at 20:56; Start 09/28/24 at 20:30; Stop 09/28/24 at 20:31; Status DC Al Hydroxide/Mg Hydroxide 30 ml ONCE ONCE PO Last administered on 09/28/24at 20:56; Start 09/28/24 at 20:30; Stop 09/28/24 at 20:31; Status DC Dicyclomine HCl 10 mg ONCE ONCE PO Last administered on 09/28/24at 20:56; Start 09/28/24 at 20:30; Stop 09/28/24 at 20:31; Status DC Famotidine 20 mg ONCE ONCE IV Last administered on 09/28/24at 20:56; Start 09/28/24 at 20:30; Stop 09/28/24 at 20:31; Status DC Aspirin 325 mg ONCE ONCE PO Last administered on 09/28/24at 22:06; Start 09/28/24 at 22:00; Stop 09/28/24 at 22:01; Status DC Heparin Sodium/ Dextrose 250 ml @ 0 mls/hr PROTOCOL IV Last administered on 09/29/24at 15:27; Start 09/28/24 at 22:00; Stop 09/29/24 at 19:10; Status DC Heparin Sodium (Porcine) 7,000 unit ONCE ONCE IV Last administered on 09/28/24at 22:06; Start 09/28/24 at 22:00; Stop 09/28/24 at 22:01; Status DC Nitroglycerin 0.5 inch ONCE ONCE TD Last administered on 09/28/24at 22:07; Start 09/28/24 at 22:00; Stop 09/28/24 at 22:01; Status DC Acetaminophen 650 mg Q6H PRN PO; Start 09/28/24 at 22:30; Stop 10/05/24 at 08:52; Status DC Acetaminophen 650 mg Q6H PRN RC; Start 09/28/24 at 22:30; Stop 10/05/24 at 08:52; Status DC Lactulose 20 gm Q6H PRN PO; Start 09/28/24 at 22:30; Stop 10/05/24 at 08:52; Status DC Docusate Sodium 100 mg BID PRN PO; Start 09/28/24 at 22:30; Stop 10/05/24 at 08:52; Status DC Temazepam 15 mg HS PRN PO; Start 09/28/24 at 22:30; Stop 10/05/24 at 08:52; Status DC Ondansetron HCl 4 mg Q6H PRN IVP; Start 09/28/24 at 22:30; Stop 10/05/24 at 08:52; Status DC Hydralazine HCl 10 mg Q2H PRN IV; Start 09/28/24 at 22:30; Stop 10/05/24 at 08:52; Status DC Insulin Human Regular INSULIN SLIDING SCAL... ACHS SQ; Start 09/29/24 at 07:30; Stop 10/02/24 at 10:56; Status DC Pantoprazole Sodium 40 mg BID IVP Last administered on 10/04/24at 20:39; Start 09/29/24 at 09:00; Stop 10/05/24 at 08:52; Status DC Aspirin 81 mg DAILY PO Last administered on 10/09/24at 07:57; Start 09/29/24 at 09:00; Stop 10/29/24 at 08:59 Atorvastatin Calcium 40 mg HS PO Last administered on 10/09/24at 21:36; Start 09/28/24 at 22:10; Stop 10/28/24 at 22:09 Lidocaine HCl/Al Hydroxide/Mg Hydroxide/ Dicyclomine HCl 20ML OR AD MAALOX P... QID PO Last administered on 09/29/24at 15:26; Start 09/29/24 at 13:00; Stop 09/29/24 at 17:01; Status DC Sucralfate 1 gm BID PO; Start 09/29/24 at 12:00; Stop 09/29/24 at 19:57; Status DC Clopidogrel Bisulfate 300 mg ONCE ONCE PO; Start 09/29/24 at 16:00; Stop 09/29/24 at 16:54; Status DC Clopidogrel Bisulfate 75 mg DAILY PO; Start 09/30/24 at 09:00; Stop 09/29/24 at 19:10; Status DC Clopidogrel Bisulfate 600 mg ONCE ONCE PO Last administered on 09/29/24at 17:11; Start 09/29/24 at 17:00; Stop 09/29/24 at 17:01; Status DC Lidocaine HCl 20 ml STK-MED ONCE .ROUTE; Start 09/29/24 at 17:21; Stop 09/29/24 at 17:22; Status DC Iohexol 35,000 mg STK-MED ONCE IV; Start 09/29/24 at 17:22; Stop 09/29/24 at 17:22; Status DC Iohexol 50 ml STK-MED ONCE IV; Start 09/29/24 at 17:22; Stop 09/29/24 at 17:22; Status DC Heparin Sodium/ Sodium Chloride 1,000 ml @ As Directed STK-MED ONCE IV; Start 09/29/24 at 17:22; Stop 09/29/24 at 17:22; Status DC Nitroglycerin 50 mg STK-MED ONCE .ROUTE; Start 09/29/24 at 17:22; Stop 09/29/24 at 17:23; Status DC Bivalirudin 250 mg STK-MED ONCE IV; Start 09/29/24 at 17:22; Stop 09/29/24 at 17:23; Status DC Fentanyl Citrate 100 mcg STK-MED ONCE .ROUTE; Start 09/29/24 at 18:12; Stop 09/29/24 at 18:12; Status DC Midazolam HCl 2 mg STK-MED ONCE .ROUTE; Start 09/29/24 at 18:12; Stop 09/29/24 at 18:12; Status DC Morphine Sulfate 1 mg ONCE ONCE IVP Last administered on 09/30/24at 08:34; Start 09/30/24 at 08:30; Stop 09/30/24 at 08:31; Status DC Nitroglycerin/ Dextrose 250 ml @ 0 mls/hr PROTOCOL IV Last administered on 10/04/24at 12:06; Start 09/30/24 at 09:00; Stop 10/05/24 at 09:14; Status DC Heparin Sodium/ Dextrose 250 ml @ 0 mls/hr Q6H IV Last administered on 10/04/24at 06:32; Start 09/30/24 at 10:30; Stop 10/05/24 at 08:52; Status DC Potassium Chloride 100 ml @ 100 mls/hr AD PRN IV; Start 10/01/24 at 12:30; Stop 10/05/24 at 08:52; Status DC Potassium Chloride 20 meq AD PRN PO; Start 10/01/24 at 12:30; Stop 10/05/24 at 08:52; Status DC Potassium Chloride 20 meq AD PRN PO; Start 10/01/24 at 12:30; Stop 10/05/24 at 08:52; Status DC Potassium Chloride 100 ml @ 50 mls/hr AD PRN IV; Start 10/01/24 at 12:30; Stop 10/01/24 at 12:15; Status DC Magnesium Sulfate 50 ml @ 0 mls/hr PROTOCOL PRN IV Last administered on 10/05/24at 05:51; Start 10/01/24 at 12:30; Stop 10/05/24 at 08:52; Status DC Pharmacy Profile Note 1 each ONCE MISC; Start 10/01/24 at 19:30; Stop 10/02/24 at 08:59; Status DC Lidocaine HCl/Al Hydroxide/Mg Hydroxide/ Dicyclomine HCl 20ML OR AD Q6H PRN PO; Start 10/01/24 at 19:30; Stop 10/05/24 at 08:52; Status DC Metoprolol Tartrate 12.5 mg BID PO Last administered on 10/05/24at 05:50; Start 10/02/24 at 21:00; Stop 10/05/24 at 08:52; Status DC Metoprolol Tartrate 12.5 mg ONCE ONCE PO Last administered on 10/02/24at 11:53; Start 10/02/24 at 11:30; Stop 10/02/24 at 11:31; Status DC Insulin Human Regular INSULIN SLIDING SCAL... ACHS SQ; Start 10/04/24 at 11:30; Stop 10/05/24 at 08:53; Status DC Cefazolin Sodium 2 gm ONCALL PRN IVP; Start 10/04/24 at 11:30; Stop 10/06/24 at 11:29; Status DC Epinephrine HCl 10 mg/Sodium Chloride 250 ml @ 0 mls/hr AD PRN IV; Start 10/05/24 at 07:00; Stop 10/05/24 at 09:04; Status DC Norepinephrine Bitartrate 250 ml @ 0 mls/hr AD PRN IV; Start 10/05/24 at 07:00; Stop 10/05/24 at 09:04; Status DC Aminocaproic Acid 57286 mg/Sodium Chloride 480 ml @ 0 mls/hr AD PRN IV; Start 10/05/24 at 07:00; Stop 11/04/24 at 06:59 Cefazolin Sodium 1 gm STK-MED ONCE .ROUTE; Start 10/05/24 at 07:07; Stop 10/05/24 at 07:13; Status DC Heparin Sodium/ Sodium Chloride 500 ml @ As Directed STK-MED ONCE IV; Start 10/05/24 at 07:08; Stop 10/05/24 at 07:13; Status DC Papaverine HCl 60 mg STK-MED ONCE .ROUTE; Start 10/05/24 at 07:08; Stop 10/05/24 at 07:13; Status DC Nitroglycerin/ Dextrose 1 ml @ As Directed STK-MED ONCE .ROUTE; Start 10/05/24 at 07:09; Stop 10/05/24 at 07:13; Status DC Cefazolin Sodium 1 gm STK-MED ONCE .ROUTE; Start 10/05/24 at 07:10; Stop 10/05/24 at 07:13; Status DC Cefazolin Sodium 2 gm STK-MED ONCE .ROUTE; Start 10/05/24 at 08:07; Stop 10/05/24 at 08:07; Status DC Sodium Chloride 1,000 ml @ As Directed STK-MED ONCE IV; Start 10/05/24 at 08:07; Stop 10/05/24 at 08:07; Status DC Protamine Sulfate 250 mg STK-MED ONCE IV; Start 10/05/24 at 08:10; Stop 10/05/24 at 08:10; Status DC Lidocaine HCl 100 mg STK-MED ONCE .ROUTE; Start 10/05/24 at 08:10; Stop 10/05/24 at 08:10; Status DC Heparin Sodium (Porcine) 10,000 unit STK-MED ONCE .ROUTE; Start 10/05/24 at 08:10; Stop 10/05/24 at 08:10; Status DC Epinephrine HCl 1 mg STK-MED ONCE .ROUTE; Start 10/05/24 at 08:10; Stop 10/05/24 at 08:10; Status DC Sodium Bicarbonate 200 ml @ As Directed STK-MED ONCE .ROUTE; Start 10/05/24 at 08:10; Stop 10/05/24 at 08:10; Status DC Norepinephrine Bitartrate 4 mg STK-MED ONCE IV; Start 10/05/24 at 08:10; Stop 10/05/24 at 08:11; Status DC Propofol 200 mg STK-MED ONCE IV; Start 10/05/24 at 08:11; Stop 10/05/24 at 08:11; Status DC Fentanyl Citrate 1,000 mcg STK-MED ONCE IJ; Start 10/05/24 at 08:11; Stop 10/05/24 at 08:11; Status DC Glycopyrrolate 1 mg STK-MED ONCE .ROUTE; Start 10/05/24 at 08:11; Stop 10/05/24 at 08:11; Status DC Midazolam HCl 2 mg STK-MED ONCE .ROUTE; Start 10/05/24 at 08:11; Stop 10/05/24 at 08:12; Status DC Rocuronium [place] 50 mg STK-MED ONCE .ROUTE; Start 10/05/24 at 08:11; Stop 10/05/24 at 08:12; Status DC Ketamine HCl 50 mg STK-MED ONCE .ROUTE; Start 10/05/24 at 08:12; Stop 10/05/24 at 08:12; Status DC Phenylephrine HCl 10 mg STK-MED ONCE IV; Start 10/05/24 at 08:47; Stop 10/05/24 at 08:48; Status DC Heparin Sodium (Porcine) 10,000 unit STK-MED ONCE .ROUTE; Start 10/05/24 at 08:48; Stop 10/05/24 at 08:48; Status DC Acetaminophen 1,000 mg Q6H6 IV Last administered on 10/06/24at 12:38; Start 10/05/24 at 13:00; Stop 10/06/24 at 12:59; Status DC Aspirin 81 mg ONCE ONCE NG Last administered on 10/05/24at 11:58; Start 10/05/24 at 12:00; Stop 10/05/24 at 12:01; Status DC Docusate Sodium 100 mg BID PO Last administered on 10/09/24at 21:28; Start 10/05/24 at 21:00; Stop 11/04/24 at 20:59 Lactulose 20 gm BID PRN PO; Start 10/05/24 at 09:00; Stop 11/04/24 at 08:59 Furosemide 20 mg Q12H PO; Start 10/07/24 at 09:00; Stop 10/07/24 at 07:40; Status DC Furosemide 20 mg Q12H IV Last administered on 10/06/24at 20:02; Start 10/06/24 at 09:00; Stop 10/07/24 at 07:46; Status DC Enoxaparin Sodium 30 mg DAILY SQ Last administered on 10/09/24at 07:58; Start 10/08/24 at 09:00; Stop 11/07/24 at 08:59 Metoprolol Tartrate 12.5 mg BID PO; Start 10/07/24 at 09:00; Stop 10/06/24 at 08:10; Status DC Magnesium Hydroxide 30 ml DAILY PRN PO; Start 10/05/24 at 09:00; Stop 11/04/24 at 08:59 Dexmedetomidine/ Sodium Chloride 400 mcg PROTOCOL IV; Start 10/05/24 at 09:00; Stop 10/06/24 at 08:59; Status DC Acetaminophen 650 mg Q6H PRN PO Last administered on 10/09/24at 06:41; Start 10/05/24 at 09:00; Stop 11/04/24 at 08:59 Sodium Chloride 1,000 ml @ 10 mls/hr ONCE IV Last administered on 10/05/24at 11:13; Start 10/05/24 at 09:00; Stop 10/06/24 at 08:59; Status DC Sodium Chloride 10 ml Q8H PRN IVP; Start 10/05/24 at 09:00; Stop 11/04/24 at 08:59 Morphine Sulfate 0.5 mg Q2H PRN IV; Start 10/05/24 at 09:00; Stop 10/06/24 at 08:59; Status DC Morphine Sulfate 1 mg Q2H PRN IV; Start 10/05/24 at 09:00; Stop 10/06/24 at 08:59; Status DC Acetaminophen 650 mg Q4H PRN RC; Start 10/05/24 at 09:00; Stop 11/04/24 at 08:59 Ondansetron HCl 4 mg Q6H PRN IV; Start 10/05/24 at 09:00; Stop 11/04/24 at 08:59 Sodium Chloride 500 ml @ 0 mls/hr AD IV; Start 10/05/24 at 09:00; Stop 11/04/24 at 08:59 Nitroglycerin/ Dextrose 0 ml @ 0 mls/hr AD IV; Start 10/05/24 at 09:00; Stop 10/08/24 at 08:59; Status DC Propofol 100 ml @ 0 mls/hr AD PRN IV; Start 10/05/24 at 09:00; Stop 10/09/24 at 08:59; Status DC Norepinephrine Bitartrate 8 mg/ Dextrose 250 ml @ 0 mls/hr AD PRN IV; Start 10/05/24 at 09:00; Stop 10/05/24 at 09:15; Status DC Epinephrine HCl 10 mg/Sodium Chloride 250 ml @ 13.948 mls/ hr AD PRN IV; Start 10/05/24 at 09:00; Stop 10/10/24 at 08:59 Aminocaproic Acid 62616 mg/Sodium Chloride 310 ml @ 25 mls/hr AD IV; Start 10/05/24 at 09:00; Stop 10/05/24 at 09:10; Status DC Calcium Gluconate 1 gm/Sodium Chloride 60 ml @ 200 mls/hr AD PRN IV Last administered on 10/06/24at 05:15; Start 10/05/24 at 09:00; Stop 11/04/24 at 08:59 Magnesium Sulfate 50 ml @ 12.5 mls/hr AD PRN IV Last administered on 10/10/24at 04:36; Start 10/05/24 at 09:00; Stop 11/04/24 at 08:59 Potassium Chloride 100 ml @ 100 mls/hr AD PRN IV Last administered on 10/09/24at 06:12; Start 10/05/24 at 09:00; Stop 11/04/24 at 08:59 Potassium Phosphate 250 ml @ 42 mls/hr AD PRN IV; Start 10/05/24 at 09:00; Stop 11/04/24 at 08:59 Albumin Human 250 ml @ 0 mls/hr AD PRN IV Last administered on 10/05/24at 11:13; Start 10/05/24 at 09:00; Stop 10/05/24 at 11:14; Status DC Acetaminophen 650 mg Q4H PRN PO; Start 10/05/24 at 09:00; Stop 11/04/24 at 08:59 Insulin Human Regular 100 unit/ Sodium Chloride 100 ml @ 0 mls/hr AD IV Last administered on 10/07/24at 05:51; Start 10/05/24 at 09:00; Stop 10/07/24 at 08:59; Status DC Cefazolin Sodium 2 gm Q8H IVPB Last administered on 10/06/24at 05:01; Start 10/05/24 at 14:00; Stop 10/06/24 at 06:01; Status DC Tramadol HCl 25 mg Q6H PRN PO Last administered on 10/06/24at 20:03; Start 10/05/24 at 09:00; Stop 10/10/24 at 08:59 Tramadol HCl 50 mg Q6H PRN PO Last administered on 10/08/24at 05:04; Start 10/05/24 at 09:00; Stop 10/10/24 at 08:59 Famotidine 20 mg BID IV Last administered on 10/07/24at 08:35; Start 10/05/24 at 09:00; Stop 10/07/24 at 08:41; Status DC Sodium Bicarbonate 50 meq AD PRN IV Last administered on 10/05/24at 20:07; Start 10/05/24 at 09:00; Stop 10/08/24 at 08:59; Status DC Dextrose 50 ml AD PRN IV; Start 10/05/24 at 09:00; Stop 11/04/24 at 08:59 Glucagon 1 mg AD PRN IM; Start 10/05/24 at 09:00; Stop 11/04/24 at 08:59 Norepinephrine Bitartrate 250 ml @ 0 mls/hr AD IV; Start 10/05/24 at 09:30; Stop 11/04/24 at 09:29 Cefazolin Sodium 2 gm STK-MED ONCE IVPB Last administered on 10/05/24at 08:30; Start 10/05/24 at 08:30; Stop 10/05/24 at 09:39; Status DC Papaverine HCl 60 mg STK-MED ONCE IRRIG Last administered on 10/05/24at 09:00; Start 10/05/24 at 09:00; Stop 10/05/24 at 09:39; Status DC Cefazolin Sodium 1 gm STK-MED ONCE IRRIG Last administered on 10/05/24at 09:00; Start 10/05/24 at 09:00; Stop 10/05/24 at 09:39; Status DC Ketamine HCl 50 mg STK-MED ONCE .ROUTE; Start 10/05/24 at 10:33; Stop 10/05/24 at 10:34; Status DC Midazolam HCl 2 mg STK-MED ONCE .ROUTE; Start 10/05/24 at 10:38; Stop 10/05/24 at 10:38; Status DC Metoprolol Tartrate 25 mg BID PO Last administered on 10/09/24at 21:28; Start 10/06/24 at 09:00; Stop 11/05/24 at 08:59 Furosemide 40 mg ONCE ONCE IV Last administered on 10/07/24at 08:35; Start 10/07/24 at 08:00; Stop 10/07/24 at 08:01; Status DC Furosemide 20 mg Q12H IV Last administered on 10/08/24at 04:42; Start 10/07/24 at 17:00; Stop 10/08/24 at 07:21; Status DC Insulin Human Regular INSULIN SLIDING SCAL... ACHS SQ Last administered on 10/09/24at 21:38; Start 10/07/24 at 11:30; Stop 11/06/24 at 11:29 Famotidine 20 mg BID PO Last administered on 10/09/24at 21:28; Start 10/07/24 at 21:00; Stop 11/06/24 at 20:59 Furosemide 20 mg Q12H PO Last administered on 10/09/24at 06:23; Start 10/08/24 at 07:30; Stop 11/07/24 at 07:29 Potassium Chloride 20 meq AD PRN PO Last administered on 10/10/24at 04:36; Start 10/09/24 at 08:00; Stop 11/08/24 at 07:59 Potassium Chloride 20 meq AD PRN PO Last administered on 10/09/24at 10:55; Start 10/09/24 at 08:00; Stop 11/08/24 at 07:59 Furosemide 40 mg ONCE ONCE IV Last administered on 10/09/24at 21:28; Start 10/09/24 at 21:00; Stop 10/09/24 at 21:01; Status DC MELODY LAW MD Oct 10, 2024 08:15
--- NOTE | 2024-10-10 09:00 | HMCIMG ---
CHEST 1VW HISTORY: Post CABG COMPARISON: 10/31/2024 FINDINGS: A frontal projection of the chest was obtained. No acute pulmonary infiltrates is seen. Poststernotomy changes are seen. The heart is enlarged. Degenerative changes of the thoracolumbar spine are present. Prominent interstitial markings are seen. Aortic calcifications are seen. IMPRESSION: 1. No acute pulmonary infiltrate is seen.
--- NOTE | 2024-10-10 10:37 | PN ---
[facility] PROGRESS NOTE Date Patient Seen: Oct 10, 2024 Time of Visit: 10:37 Supervising Physician: [ ] Primary Care Physician: Sheyla Cedeno @ [facility] Outpatient Specialists: Inpatient Consults: Cardiology PROBLEM LIST: Off-pump CABG x 2, ELIZONDO to LAD, reverse saphenous vein graft to oblique marginal on 10/05/24 Dr Stevan Thomas STEMI-- troponin is 221 peaked to 47K, EKG No ST elevation- HEART SCORE FOR MACE 5 pts- moderate- risk of MACE 12-16%. S/P LHC with finding of MV CAD: mid LAD, diag, OM, and RCA occlusion on 09/29/24 Chest pain secondary to above Obstructed sleep apnea- witnessed here during hospital stay Acute renal failure secondary to ATN from dehydration Gastritis versus duodenal ulcer flare from spicy food ( patient likes to eat habanero daily) Hyponatremia Suspect obstructive sleep apnea Hyperglycemia in setting of type 2 diabetes mellitus Pulmonary vascular congestion- likely from acute CHF preserved EF Leukocytosis without left band shift Obesity BMI 32 History of diabetes mellitus, hypertension, gastritis, former light smoker INTERVAL HISTORY: Patient came to the hospital yesterday with substernal chest pain. Patient feels burning sensation in the chest 3 hours after he ate habanero. He admits eating spicy food on a daily basis. Patient has history of gastritis not on any PPI. Patient denies any history of cardiac problem other than hypertension. He has seen Dr. Gotti as outpatient for cardiac clearance. His troponin was 220 when he came in and we are trending this. We will obtain EKG. At this time patient is on heparin drip per ACS protocol. Aspirin and statin has been started. Obtain Cardiology clearance. Check BNP. Echocardiogram is pending. In the meantime, likely this gastric burning was from gastritis versus duodenal ulcer. We will start patient with GI cocktail. We will start him also on Carafate. 09/30 patient had remarkable troponin elevation up to 47 K yesterday from 220. This morning patient is upgraded to ICU secondary to persistent chest pain, he was started on nitroglycerin drip. Patient had undergone a left heart catheterization yesterday with finding of multivessel coronary artery disease, pending CV surgery recommendations for coronary artery bypass graft surgery. Patient remains on heparin drip for ACS. Continue with p.r.n. pain medication. bowel regimen. In the meantime patient is NPO pending CV surgery recommendation. 10/01 patient is awake alert and oriented x3 no acute chest pain but remains on nitroglycerin drip. Patient is was on heparin drip. Vital signs blood pressure 119/68 pulse is 87. WBC is 11 this is down from 11.3 and chemistry is sodium 131 this is down from 133 yesterday. Creatinine is 1.1 this is stable. Glucose 127. Magnesium is 1.[address] electrolyte protocol. Pending CABG next week. 10/02 patient is awake alert oriented x3 no chest pain at this time. Patient remains on nitroglycerin drip titration. According to in tartrate for chest pain. This morning lab is unremarkable. Blood pressure 118/68 heart rate is 89. T-max is 98.4. Echocardiogram with LVEF of 35%. Patient is on aspirin and statin already. Consider beta-deb. Diuretic as needed. Patient is reported to have been hypoxic at night at sleep time. Patient reported that he has sleep apnea but never get tested. We will start patient on low CPAP at night with 8 cm Hg. We will need outpatient sleep apnea study. Patient is pending CV surgery for CABG. 10/03 patient is awake alert oriented x3 , no acute distress. Patient was tolerating CPAP overnight for 2 hours. Continued at nighttime. At this time, we can teach him how to use incentive spirometry. He remains on 2 L nasal cannula with sats 99%. Continue to wean down as tolerated. He has holiday lab this morning , we can check lab tomorrow morning. Otherwise continue with nitroglycerin drip and heparin drip. Patient has been started on beta-deb. 10/04 patient is awake alert oriented x3, no acute distress, conversing with family, vital signs blood pressure 117/71 map is 86 heart rate is 77. Respiratory rate is 18. He is on 2 L nasal cannula with sats 100%. He was able to be on CPAP for 5 hours overnight. Chemistry sodium 134 potassium 4.2 chloride 100 bicarb 26 BUN 12 creatinine is 1.0. Albumin is 3.2. Patient has been on heparin drip for ACS and nitroglycerin drip for chest pain. Continue IC U care given being on NTG drip. Continue to follow recommendation from CV team for CABG tomorrow. 10/05 patient is status post CABG x2 today. He remains intubated on SIMV 10/650/5/50%. He is postanesthesia care very drowsy but following very simple commands. We are still in the fast track extubation plan. Otherwise, His vital signs is stable, supported with vasopressor of epinephrine and Levophed drip , at the moment he is hyperdynamic. Continue to wean down vasopressors as tolerated to keep map greater than 65. Patient also is on insulin drip post CABG per protocol. His ABG is 7.38 /46 /107/26 O2 sat is 96%. Chest tube x2 in place , [place] catheter in place. Right groin sheath in place. Continue to monitor input and output closely. Follow post CABG protocol. Lab and Chest xray in AM. 10/06-patient is awake alert and oriented x3, he was extubated yesterday around 1844 currently on 2 L via nasal cannula saturating 99%, off pressors blood pressure 159/74 heart rate 108 respiratory rate 16, and has been afebrile with a T-max of 99 and T low of 96.8 in the last 24 hours. Urine output 1.6 L, chest tube output 410 mL in the last 24 hours. WBCs 16.6 H&H 11.4/34.5 with a platelet count of [id number]. Chemistries sodium 140 potassium 4.1 chloride 105 carbon dioxide 32 BUN 14 creatinine 1.0 GFR 81. Chest x-ray with improve in vascular congestion. Chest tube in place, right IJ appears to be in place. Post sternotomy changes. No pneumothorax, noted pending official radiology read. 10/07-patient is awake alert and oriented x3 sitting up in recliner chair. Denies any chest pain, palpitation, shortness of breath, nausea, vomiting or chi lls. He reports his pain is well controlled. He has been afebrile with a T-max of 99 heart rate in the 90s respiratory rate of 19 unlabored saturating 98% on room air. Blood pressure 147/61, he continues on nitroglycerin drip that was started overnight for hypertension weaning down currently at 15 micrograms/minute. WBCs trending down 16.5 today H&H slightly lower today 9.9/30.3 platelet count is normal. Sodium 136 potassium 4.4 CO2 33, BUN 14 creatinine 1.0 GFR of 81. Per RN patient did not tolerate his CPAP well overnight. As per patient it did not function well overnight we will have RT take a look if nonfunctioning we can try our in-house CPAP machine. Otherwise patient has been having good urine output of 2.5 L in the last 24 hours with a balance of -1.6 he continues on Lasix 20 mg IV q.12 hours. Chest x-ray noted to have increased pulmonary vascular congestion. Chest tube drained 130 mL in the last 24 hours. 10/08-patient is awake alert and oriented x3 hemodynamically stable. Continues off pressors chest x-ray has improved. He continues working with his IS pulling 1.2 L. Good urine output of 1.79 L with a balance of-1 L. chest tube has been removed. [place] catheter to be removed today. White count improving 14.2 today H&H stable 10.3/30.6 with a platelet count of [id number], sodium 132, potassium 3.9, CO2 32 BUN 13 creatinine 0.9 with a GFR of 92. He is tolerating clear liquid diet we will advance as tolerated. Patient's family member had concerns regarding CPAP machine instructed her reminded her as had recommended to follow up in one week for sleep study. Both patient and family member verbalized understanding. 10/09- patient is awake alert and oriented x3 off pressors. chest tubes central line and [place] catheter has been removed. Patient denies any chest pain, shortness of breath or palpitations. He reports he is feeling better. He continues working on IS pulling 1.2 L. He is hemodynamically stable heart rate in the 80s. Patient is in no apparent distress respiratory rate of 18 saturating 97% on room air afebrile. WBCs 10.4 H&H 10.4/30.8, sodium 134 potassium 3.5 CO2 of 33 BUN of 13 creatinine of 0.9 and GFR 92 magnesium of 1.7 covered protocol. Urine output 3.6 L. Patient is pending case management arrangement for home health for physical therapy. REVIEW OF SYSTEMS: Const: [No fever, fatigue, or weight changes] Eyes:[ no recent vision problems] ENT: [No congestion, ear pain, or sore throat] C/V: [no chest pain, palpitations or edema] Resp: [No cough, congestion, wheezing , or Shortness of breath] GI: [No abdominal pain, nausea, vomiting, constipation, or diarrhea] : [No incontinence of or dyuria] M/S: [No joint or pain swelling] Skin: [No rash] Neuro: [no headache, focal numbness, or weakness, dizziness or seizures] Psych: [no depression or anxiety] Heme: [no abnormal bruising or bleeding] Lymph: [no swollen glands] PHYSICAL EXAM: GENERAL: Alert, weak, awake oriented x 3 HEENT: EOMI, Sclera non icteric, moist mucosa NECK: Supple, no JVD, trachea midline LUNGS: Clear breath sounds bilaterally. No wheezes HEART: Regular rate and rhythm. Normal S1 and S2, without murmurs ABD: Abdomen soft, nontender. Bowel sounds present EXT: No clubbing cyanosis or edema, right femoral sheath still in place +1 bilateral pedal pulse NEURO: Alert and oriented X3, follows commands Vital Signs (last 8hr) Date Time Temp Pulse Resp B/P (MAP) Pulse Ox O2 Delivery O2 Flow Rate FiO2 10/10/24 08:00 99.7 79 21 110/65 98 Room Air 10/10/24 07:34 83 18 N/A Room Air 21 10/10/24 07:00 79 24 96 10/10/24 03:48 98.6 74 22 120/62 98 Room Air 10/10/24 02:48 84 23 118/70 99 Room Air LABS: Hematology Labs: Test 10/10/24 03:57 Range/Units White Blood Count 10.4 4.8-10.8 K/uL Red Blood Count 3.50 L 4.50-6.20 MIL/uL Hemoglobin 11.2 L 14.0-18.0 g/dL Hematocrit 33.6 L 42-54 % Mean Corpuscular Volume 96.0 79-99 fL Mean Corpuscular Hemoglobin 32.0 27.0-33.0 pg Mean Corpuscular Hemoglobin Concent 33.3 32.0-36.0 g/dL Red Cell Distribution Width 11.9 11.0-15.5 % Platelet Count 279 130-400 K/uL Mean Platelet Volume 9.8 7.5-10.5 fL Nucleated Red Blood Cells 0.0 0.0-0.19 % Chemistry Labs: Test 10/10/24 07:11 10/10/24 03:57 Range/Units Whole Blood Glucose 155 H 70-110 MG/DL Sodium Level 135 L 136-145 mmol/L Potassium Level 3.7 3.5-5.1 mmol/L Chloride Level 99 L 101-111 mmol/L Carbon Dioxide Level 31 21-32 mmol/L Blood Urea Nitrogen 12 7-18 mg/dL Creatinine 0.9 0.5-1.3 mg/dL Glomerular Filtration Rate Calc 92 >90 mL/min Random Glucose 149 H 70-105 mg/dL Total Calcium 8.6 8.5-10.1 mg/dL Magnesium Level 1.90 1.80-2.40 mg/dL DIAGNOSTICS / RADIOLOGY RESULTS: [ ] PLAN -Admit to medical floor with continuous telemetry monitoring. -Troponin levels and EKG series. -Cardiology consult in the am. -2D echo in a.m. with heart clinic to read. -PRN medications for pain management, N/V, constipation, hypertension. -Oxygen supplement as needed to maintain oxygen levels equal to or greater than 92% -Nitroglycerin sublingual as needed chest pain. -Continue Heparin drip. -Aspirin 81 mg p.o. daily. -Atorvastatin 40 mg PO daily. -Blood pressure checks every 4 hours and as needed. -Reconcile home medications once available. -Glucometer checks before meals and at bedtime with insulin regular sliding scale. -Monitor renal and liver function, monitor electrolytes and replace PRN. -AM labs: CBC, BMP, mag, phos, A1C, TSH. -DVT and GI prophylaxis: Lovenox and Protonix. NEURO: Minimize central acting medications as possible. Maintain fall precautions, adequate lighting during the day PULMONARY: Supplemental 02 as needed. Maintain aspiration precautions at all times CARDIOVASCULAR: Follow hemodynamics. Vital signs per facility protocol Trend troponin Cardiology consultation GI & NUTRITION: Continue with nutritional support. Continue stool softeners and laxatives as needed. Carafate GI cocktail KIDNEYS & ELECTROLYTES: Strict monitoring of intake, output and overall fluid balance. Avoid nephrotoxic medications to the extent possible. Medications to be dosed according to renal function. Monitor electrolytes and replace as needed ENDOCRINE: Maintain blood glucose between 100-180 at all times. Hypoglycemia protocol in place INFECTIOUS DISEASE: Trend temperature, WBC and procalcitonin level Follow cultures, deescalate antibiotics as soon as possible. Panculture if new onset fever ONCOLOGY/HEMATOLOGY/COAGULATION: Monitor for s/s of bleeding Monitor hemoglobin, coagulation studies as needed SKIN: Pressure ulcer prevention per facility protocol Specialty mattress ORTHO/REHAB: Continue PT/OT Prophylaxis: Continue GI and DVT prophylaxis Code Status: Full Resuscitation Disposition: TBD Time spent: > 35 minutes SCOOTER DOMINGUEZ [employer]PLICATING MACHINE OPERATOR Oct 10, 2024 10:37
[2024-10-10] MEDS ORDERED: AEC81 PO (17:23)
[2024-10-10] MEDS ORDERED: FURO20TA6 PO (17:23)
[2024-10-10] MEDS ORDERED: POTA-200 PO (17:23)
[2024-10-10] MEDS ORDERED: METO25 PO (17:23)
[2024-10-10] MEDS ORDERED: ATOR40TA69 PO (17:23)
--- NOTE | 2024-10-10 17:25 | DS ---
[facility] DISCHARGE SUMMARY Date Patient Seen: Oct 10, 2024 Time of Visit: 17:25 Supervising Physician: Moncho Santiago MD Primary Care Physician: Sheyla Cedeno @ [facility] Outpatient Specialists: Inpatient Consults: Cardiology PROBLEM LIST: Off-pump CABG x 2, ELIZONDO to LAD, reverse saphenous vein graft to oblique marginal on 10/05/24 Dr Calles Non STEMI-- troponin is 221 peaked to 47K, EKG No ST elevation- HEART SCORE FOR MACE 5 pts- moderate- risk of MACE 12-16%. S/P LHC with finding of MV CAD: mid LAD, diag, OM, and RCA occlusion on 09/29/24 Chest pain secondary to above Obstructed sleep apnea- witnessed here during hospital stay Acute renal failure secondary to ATN from dehydration Gastritis versus duodenal ulcer flare from spicy food ( patient likes to eat habanero daily) Hyponatremia Suspect obstructive sleep apnea Hyperglycemia in setting of type 2 diabetes mellitus Pulmonary vascular congestion- likely from acute CHF preserved EF Leukocytosis without left band shift Obesity BMI 32 History of diabetes mellitus, hypertension, gastritis, former light smoker HOSPITAL COURSE: HPI 09/28-Mr. Navarro is a 69 year old male with history of DM II, hypertension, and gastritis who presented to ED for evaluation of epigastric and substernal chest pain. He reports the pain feels like burning onset several years on and off, but worsened after he ate 3 hours prior to arrival and which prompted him to come to the hospital. He reports being seen by Dr. Shen robison for a cardiac clearance. Then he continued to see thecardiologist for his hypertension. Now he sees another crystal evaluator in [place]. He did not take anything prior to arrival to ED for the pain. 09/29-troponin 220 trending. Obtaining EGD and patient is on a heparin drip per ACS protocol. Aspirin statin has been started. Cardiology consulted. 2D echo ordered and pending. 09/30-[place] [address] from 159000 yesterday. Patient has been upgraded to the ICU secondary to persistent chest pain. Patient has been started on nitroglycerin drip. Left heart catheterization yesterday found multivessel coronary artery disease he is now pending CV surgery recommendations for coronary artery bypass graft surgery. Meanwhile he continues on heparin drip. 10/01-patient's chest pain has resolved continues on nitroglycerin drip and heparin drip. CV surgery has evaluated the patient and plan for CABG next week. WBCs trending down 11 today. 10/02-Patient continues with nitroglycerin drip. Hemodynamically stable echocardiogram showed EF of 35%. Patient continues on aspirin and statin already. Patient was noted to be hypoxic at night during sleep time. Patient reports that he has sleep apnea but never got tested. He has been started on low CPAP at night with peripheral of eight. He will need operative sleep apnea study. CABG pending for next week. 10/03-patient has been started on beta deb he continues with the five and was able to tolerate 2 hours overnight. He remained with 2 L via nasal cannula saturating 99%. 10/04-her major events overnight. He has been tolerating CPAP 5 hours overnight. Kidneys are doing well creatinine 1.0. He continues on heparin drip and nitroglycerin. He continues in the ICU. Following CV surgery recommendations for CABG tomorrow. 10/05-patient has closed CABG x2. He remains intubated on SIMV 10/650/5/50%. He is postanesthesia care very drowsy but following very simple commands. We a re still in the fast track extubation plan. Otherwise, His vital signs is stable, supported with vasopressor of epinephrine and Levophed drip , at the moment he is hyperdynamic. Continue to wean down vasopressors as tolerated to keep map greater than 65. Patient also is on insulin drip post CABG per protocol. His ABG is 7.38 /46 /107/26 O2 sat is 96%. Chest tube x2 in place , [place] catheter in place. Right groin sheath in place. Continue to monitor input and output closely. Follow post CABG protocol. Lab and Chest xray in AM. 10/06-patient is awake alert and oriented he was extubated yesterday around 1844 currently on 2 L via nasal cannula saturating 99%, off pressors blood pressure 159/74 heart rate 108 respiratory rate 16, and has been afebrile with a T-max of 99 and T low of 96.8 in the last 24 hours. Urine output 1.6 L, chest tube output 410 mL in the last 24 hours. WBCs 16.6 H&H 11.4/34.5 with a platelet count of [id number]. Chemistries sodium 140 potassium 4.1 chloride 105 carbon dioxide 32 BUN 14 creatinine 1.0 GFR 81. Chest x-ray with improve in vascular congestion. Chest tube in place, right IJ appears to be in place. Post sternotomy changes. No pneumothorax, notet. 10/07-patient is awake alert and oriented x3 sitting up in recliner chair. D enies any chest pain, palpitation, shortness of breath, nausea, vomiting or chills. He reports his pain is well controlled. He has been afebrile with a T- max of 99 heart rate in the 90s respiratory rate of 19 unlabored saturating 98% on room air. Blood pressure 147/61, he continues on nitroglycerin drip that was started overnight for hypertension weaning down currently at 15 mi crograms/minute. WBCs trending down 16.5 today H&H slightly lower today 9.9/30.3 platelet count is normal. Sodium 136 potassium 4.4 CO2 33, BUN 14 creatinine 1.0 GFR of 81. Per RN patient did not tolerate his CPAP well overnight. As per patient it did not function well overnight we will have RT take a look if nonfunctioning we can try our in-house CPAP machine. Otherwise patient has been having good urine output of 2.5 L in the last 24 hours with a balance of -1.6 he continues on Lasix 20 mg IV q.12 hours. Chest x-ray noted to have increased pulmonary vascular congestion. Chest tube drained 130 mL in the last 24 hours. 10/08-patient is awake alert and oriented x3 hemodynamically stable. Continues off pressors chest x-ray has improved. He continues working with his IS pulling 1.2 L. Good urine output of 1.79 L with a balance of-1 L. chest tube has been removed. [place] catheter to be removed today. White count improving 14.2 today H&H stable 10.3/30.6 with a platelet count of 089808, sodium 132, potassium 3.9, CO2 32 BUN 13 creatinine 0.9 with a GFR of 92. He is tolerating clear liquid diet we will advance as tolerated. Patient's family member had concerns regarding CPAP machine instructed her reminded her as had recommended to follow up in one week for sleep study. Both patient and family member verbalized understanding. 10/09- patient is awake alert and oriented x3 off pressors. chest tubes central line and [place] catheter has been removed. Patient denies any chest pain, shortness of breath or palpitations. He reports he is feeling better. He continues working on IS pulling 1.2 L. He is hemodynamically stable heart rate in the 80s. Patient is in no apparent distress respiratory rate of 18 saturating 97% on room air afebrile. WBCs 10.4 H&H 10.4/30.8, sodium 134 potassium 3.5 CO2 of 33 BUN of 13 creatinine of 0.9 and GFR 92 magnesium of 1.7 covered protocol. Urine output 3.6 L. Patient is pending case management arrangement for home health for physical therapy. 10/10- no major overnight events. Patient is hemodynamically stable. Denies any chest pain, palpitations or shortness of breath. Case management has arranged for [facility] home health for therapy. Patient has been cleared by cardiology he is to follow up with Dr.anielle Alexis in 2-4 weeks. Follow up with primary care physician in one week. And follow up with pulmonology of choice in one week for sleep study. Patient verbalized understanding. Stable for discharge. CHRONIC PROBLEMS: continue previous management per PCP unless otherwise indicated HEALTHCARE INTERPRETER FINDINGS/RECOMMENDATIONS: Continue with aspirin, atorvastatin, furosemide, metoprolol Follow up with pulmonology of choice in one week for sleep study PROCEDURES: as mentioned above DISCHARGE MEDICATIONS: New prescription for: Aspirin 81 mg p.o. daily Atorvastatin 40 mg p.o. q.h.s. Metoprolol 25 mg p.o. b.i.d. Furosemide 20 mg q.12 hours p.o. Potassium chloride 10 mEq one tablet p.o. daily Continue the following meds: Continue Jardiance 10 mg tablet p.o. daily Continue lisinopril 10 mg tablet daily Continue metformin one tablet p.o. b.i.d. Pt hemodynamically stable and afebrile at time of discharge. PCP notified of patients admission, hospital course and discharge. New Medications: Potassium Chloride (Potassium Chloride) 10 Meq Tab.er.prt 1 TAB PO DAILY for take with furosemide for 30 Days, #30 TAB 1 Refill Aspirin (Aspirin 81 Mg Ectab) 81 Mg Ectab 81 MG PO DAILY, #30 TAB.EC 1 Refill Atorvastatin Calcium (Lipitor) 40 Mg Tablet 40 MG PO HS, #30 TAB 1 Refill Furosemide (Lasix 20Mg Tab) 20 Mg Tablet 20 MG PO Q12H, #60 TAB 1 Refill Metoprolol Tartrate (Lopressor) 25 Mg Tab 25 MG PO BID, #60 TAB 1 Refill Continued Medications: Empagliflozin (Jardiance) 10 Mg Tablet 1 TAB PO DAILY for 30 Days, #30 TAB 0 Refills Lisinopril (Lisinopril) 10 Mg Tablet 1 TAB PO DAILY for 30 Days, #30 TAB 0 Refills Metformin HCl (Metformin HCl) 1,000 Mg Tablet 1 TAB PO BID for 30 Days, #60 TAB 0 Refills Discontinued Medications: Atorvastatin Calcium (Atorvastatin Calcium) 10 Mg Tablet 1 TAB PO DAILY for 30 Days, #30 TAB 0 Refills Metoprolol Tartrate (Metoprolol Tartrate) 50 Mg Tablet 1 TAB PO BID for 30 Days, #60 TAB 0 Refills PHYSICAL EXAM: GENERAL: Alert, weak, awake oriented x 3 HEENT: EOMI, Sclera non icteric, moist mucosa NECK: Supple, no JVD, trachea midline LUNGS: Clear breath sounds bilaterally. No wheezes HEART: Regular rate and rhythm. Normal S1 and S2, without murmurs ABD: Abdomen soft, nontender. Bowel sounds present EXT: No clubbing cyanosis or edema, bilateral pedal pulses +1 NEURO: Alert and oriented X3, follows commands FOLLOW-UP: Follow up with PCP in 1-3 days Follow up with Cardiology Dr Alexis in 2-4 weeks. Follow up with pulmonology of choice in one week for sleep studies and PFTs. RECOMMENDATIONS: See Discharge Instructions This case was seen and discussed with my supervising physician. More than 30 minutes spent on discharge process, including evaluation of the patient, discussion with nursing staff, medication reconciliation and follow-up appointments SCOOTER DOMINGUEZ [facility] Oct 10, 2024 17:25
--- NOTE | 2024-10-11 00:24 | PN ---
SUBJECTIVE: A 69-year-old gentleman with a history of coronary artery disease, status post CABG, coursing postoperative day #5. OBJECTIVE: GENERAL: Awake, alert, afebrile, neurologically intact. VITAL SIGNS: Stable as recorded in medical record. CHEST: Sternum stable. Incision sealed. LUNGS: Clear. EXTREMITIES: Warm, well perfused. No evidence of DVT, hematoma, or infection. ASSESSMENT AND PLAN: Status post coronary artery bypass graft. PROBLEMS: * Coronary artery disease. The patient underwent surgical revascularization. He was started on aspirin 81 mg, metoprolol 25 mg twice a day. * Fluid overload. Lasix 20 mg twice a day. * Dyslipidemia. Lipitor 40 mg once a day. PLAN: OT, PT, discharge planning for today. TID: [id number] RECEIPT: [id number]
== END 2024-10-10 18:30 | disposition home health service (06) | DRG 235 ==
LOC: EDH 19:47 → EDHIP 21:53 → OBSVTOIN 21:53 → 2DH 23:26 → 2CH 09-30 09:10 → 2CV 10-05 08:19 → 2BH 10-06 16:16
PROVIDERS: ADMIT Internal Medicine Pulmonary Disease; ATTEND Internal Medicine Pulmonary Disease
PROC: 021009W Bypass Coronary Artery, One Artery from Aorta with Autologous Venous Tissue, Open Approach (ICD-10-PCS; principal; 2024-10-05 08:10)
PROC: 02100Z9 Bypass Coronary Artery, One Artery from Left Internal Mammary, Open Approach (ICD-10-PCS; 2024-10-05 08:10)
PROC: 06BQ4ZZ Excision of Left Saphenous Vein, Percutaneous Endoscopic Approach (ICD-10-PCS; 2024-10-05 08:10)
DX: I21.4 Non-ST elevation (NSTEMI) myocardial infarction (principal); N17.0 Acute kidney failure with tubular necrosis; I13.0 Hypertensive heart and chronic kidney disease with heart failure and stage 1 through stage 4 chronic kidney disease, or unspecified chronic kidney disease; I50.30 Unspecified diastolic (congestive) heart failure; E87.1 Hypo-osmolality and hyponatremia; E86.0 Dehydration; I25.10 Atherosclerotic heart disease of native coronary artery without angina pectoris; E11.65 Type 2 diabetes mellitus with hyperglycemia; E11.22 Type 2 diabetes mellitus with diabetic chronic kidney disease; E66.9 Obesity, unspecified; E78.5 Hyperlipidemia, unspecified; E87.6 Hypokalemia; N18.30 Chronic kidney disease, stage 3 unspecified; K59.00 Constipation, unspecified; G47.33 Obstructive sleep apnea (adult) (pediatric); D72.829 Elevated white blood cell count, unspecified; Z87.891 Personal history of nicotine dependence; Z79.899 Other long term (current) drug therapy; Z79.82 Long term (current) use of aspirin; Z68.32 Body mass index [BMI] 32.0-32.9, adult
CPT/HCPCS: 36415; 36600; 71045; 80048; 80053; 80305; 81001; 82330; 82435; 82803; 82947; 82948; 83605; 83735; 83880; 84100; 84132; 84295; 84443; 84484; 85018; 85025; 85027; 85347; 85384; 85610; 85730; 86850; 86900; 86901; 86923; 87641; 93005; 93306; 93312; 93325; 93356; 93458; 93880; 94002; 94150; 94660; 96365; 96375; 99156; 99157; A4344; A7048; C1760; C1769; C1894; G0378; J0171; J0583; J0612; J0690; J1644; J1650; J1815; J1940; J2003; J2250; J2270; J2371; J2440; J2470; J2704; J2720; J3010; J3475; J3480; J3490; J7030; J7040; P9045; Q9967; A4216; A4222; A4223; A4649; A4930; A6204; C1713; C1776; C1887; Q9965